=== PATIENT | male | born 1980 | race Caucasian/White ===

== ENCOUNTER 2017-04-02 10:26 | Emergency (ER) | payer SELFPAY ==
[~2017-04-02] VITALS: Ht 185.4 cm; Wt 112.9 kg
[~2017-04-02 10:26] MED LIST: ACHD5005 PO; AMPH20TA2 PO; BENZ100C18 PO; CEFU250T11 PO; CELE50CA PO; CEPH500C PO; CIPR500T4 PO; CLON1TAB3 PO; CONCERTA; CPR500T PO; CRS350T PO; CYCL10TA9 PO; DOXY100C2 PO; FAMO20TA5 PO; GFCD10B PO; HYDR-2941 PO; HYDR-3714; HYDR-3816 PO; HYDR-757 PO; HYDR1CAP2 PO; HYDR25TA4 PO; IBP800T; IBP800T PO; IBUP-1780 PO; IBUP-792; METR500T PO; MPR22T TP; NAPR-1071 PO; NAPR-243 PO; NAPR-684 PO; NAPR250T34 PO; NFPRILOC40 PO; ONDA8TAB13 PO; ONDAN4ODT PO; ORPH100T PO; OXYC-109 PO; OXYC-197 PO; OXYC20TA4 PO; PHEN-639 PO; PRD20T PO; PRED20TA PO; PROP1TAB77; SULF1TAB38 PO; TAMS0.4C98 PO; TRAM50TA2 PO; TRM50T; TRM50T PO; flexeril PO
--- OUTSIDE RECORDS SUMMARY | 2017-04-02 10:33 | XMS REPORT ---
Author Author URBAN DE SOUZA [facility] eClinicalWorks Address Unknown Phone Unavailable Care Team Providers Care Lacquer Shader Name Role Phone URBAN DE SOUZA CP Unavailable Allergies No Known Allergies Problems Problem Type Condition Code Onset Dates Condition Status Problem Generalized anxiety disorder 300.02 Active Problem Cannabis dependence, unspecified abuse 304.30 Active Problem Encounter for long-term (current) use of other medications V58.69 Active Problem Abdominal pain, other specified site 789.09 Active Problem Chest pain, unspecified 786.50 Active Problem Dysuria 788.1 Active Problem Routine general medical examination at health care facility V70.0 Active Problem 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 Problem Orchitis, epididymitis, and epididymo-orchitis, with abscess 604.0 Active Problem Urinary frequency 788.41 Active Problem Counseling on substance use and abuse V65.42 Active Problem Traumatic arthropathy, 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 Assessment Degenerative tear of glenoid labrum of left shoulder S43.432A Active Problem Pathologic fracture of distal radius and ulna 733.12 Active Problem Counseling on other sexually transmitted diseases V65.45 Active Problem Screening examination for venereal disease V74.5 Active Problem Attention deficit disorder of childhood without mention of hyperactivity 314.00 Active Problem Family history of diabetes mellitus V18.0 Active Problem Cellulitis and abscess of buttock 682.5 Active Problem Attention deficit disorder of childhood with hyperactivity 314.01 Active Medications No Known Medications Procedures Procedure Coding System Code Date Office Visit, Est Pt., Level 3 CPT-4 71237 Dec 28, 2014 Vital Signs Date/Time: Dec 28, 2014 Blood Pressure Diastolic 78 mmHg Blood Pressure Systolic 120 mmHg Height 73 in Results No Known Results Summary Purpose eClinicalWorks Submission
--- OUTSIDE RECORDS SUMMARY | 2017-04-02 10:33 | XMS REPORT ---
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 MUST LAST 30 DAYS Jan 03, 2015 1 tablet as needed Results No Known Results Summary Purpose eClinicalWorks Submission
--- OUTSIDE RECORDS SUMMARY | 2017-04-02 10:33 | XMS REPORT ---
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
--- OUTSIDE RECORDS SUMMARY | 2017-04-02 10:33 | XMS REPORT ---
Author Author LORENZO TSAI [facility] Address [address] [place] [address] Care Team Providers Care Track Car Operator Name Role Phone LORENZO STAI Unavailable PROBLEMS Type Condition ICD9-CM Code [id number] Code Onset Dates Condition Status SNOMED Code Problem Tobacco abuse counseling Z71.6 Active 746948019 Problem Hypothyroidism, unspecified type E03.9 Active 94947868 Problem Pain in left knee M25.562 Active 869575030 Problem ADHD, predominantly inattentive type F90.0 Active 87959593 Problem Anxiety F41.9 Active 89972435 Problem Tobacco abuse Z72.0 Active 49000470 Problem Other chronic pain G89.29 Active 18504073 Problem Situational anxiety F41.8 Active 708194780 Problem Essential hypertension I10 Active 13385930 Problem Plantar wart B07.0 Active 99820836 Problem Renal lithiasis N20.0 Active 30439010 Problem Renal calculi N20.0 Active 49531260 ALLERGIES Substance Reaction Event Type Date Status Penicillin G Sodium Unknown Drug Allergy May, Active SOCIAL HISTORY Never Assessed PLAN OF CARE VITAL SIGNS Height 73 in 2016-05-28 Weight 260.4 lbs 2016-05-28 Temperature 101.8 degrees Fahrenheit 2016-05-28 Heart Rate 100 bpm 2016-05-28 Respiratory Rate 20 2016-05-28 BMI 34.35 kg/m2 2016-05-28 Blood pressure systolic 136 mmHg 2016-05-28 Blood pressure diastolic 84 mmHg 2016-05-28 MEDICATIONS Medication Instructions Dosage Frequency Start Date End Date Duration Status Tessalon Perles 100 mg Orally Three times a day 1 capsule as needed 8h May, Active Bactrim DS 800-160 MG Orally Twice a day 1 tablet 12h May,May 10 day(s) Active RESULTS No Results PROCEDURES No Known procedures IMMUNIZATIONS No Known Immunizations MEDICAL (GENERAL) HISTORY Type Description Date Medical History Panic disorder Medical History left hip pain Surgical History Arthroscopy of left knee ACL repair x4 1999 Hospitalization History Surgery(s) only
--- OUTSIDE RECORDS SUMMARY | 2017-04-02 10:33 | XMS REPORT ---
Author LORENZO Maharaj [facility] eClinicalWorks Address Unknown Phone Unavailable Care Team Providers Care Computer Applications Instructor Name Role Phone LORENZO TSAI CP Unavailable Allergies, Adverse Reactions, Alerts Substance Reaction Event Type N.K.D.A. 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 Assessment Acute meniscal injury of left knee, subsequent encounter S89.82XD Active Problem Pathologic fracture of distal radius [...] Instructions Start Date End Date Status Dosage Logan [facility] [address]-28 7.5-325 MG Orally every 6 hrs Jan 03, 2015 1 tablet as needed Clonazepam [facility] [address]-22 0.5 mg Mar 30, 2014 1 Tablet 2 times per day PRN Ritalin [facility] [address]-93 10 mg Mar 30, 2014 take 1 tablet by Oral route 1 time per day Procedures Procedure Coding System Code Date Office Visit, Est Pt., Level 3 CPT-4 34183 Jan 03, 2015 Vital Signs Date/Time: Jan 03, 2015 Temperature 97.1 F Weight 265 lbs Height 73 in BMI 34.96 Index Blood Pressure Diastolic 86 mmHg Blood Pressure Systolic 122 mmHg Cardiac Monitoring Heart Rate 90 bpm Results No Known Results Summary Purpose eClinicalWorks Submission
--- OUTSIDE RECORDS SUMMARY | 2017-04-02 10:34 | XMS REPORT ---
Author Author LORENZO TSAI [facility] Address [address] [place] [address] Care Team Providers Care Automatic Bandsaw Tender Name Role Phone LORENZO TSAI Unavailable PROBLEMS Type Condition ICD9-CM Code NNF14-FV Code Onset Dates Condition Status SNOMED Code Problem Tobacco abuse counseling Z71.6 Active 982418079 Problem Hypothyroidism, unspecified type E03.9 Active 84416455 Problem Pain in left knee M25.562 Active 846352455 Problem ADHD, predominantly inattentive type F90.0 Active 94201494 Problem Anxiety F41.9 Active 66160424 Problem Tobacco abuse Z72.0 Active 51864440 Problem Other chronic pain G89.29 Active 00734775 Problem Situational anxiety F41.8 Active 093771658 Problem Essential hypertension I10 Active 46403636 Problem Plantar wart B07.0 Active 50585248 Problem Renal lithiasis N20.0 Active 29425102 Problem Renal calculi N20.0 Active 11808175 ALLERGIES No Information SOCIAL HISTORY Never Assessed PLAN OF CARE VITAL SIGNS MEDICATIONS Unknown Medications RESULTS No Results PROCEDURES No Known procedures IMMUNIZATIONS No Known Immunizations MEDICAL (GENERAL) HISTORY Type Description Date Medical History Panic disorder Medical History left hip pain Surgical History Arthroscopy of left knee ACL repair x4 2000 Hospitalization History Surgery(s) only
--- OUTSIDE RECORDS SUMMARY | 2017-04-02 10:34 | XMS REPORT ---
Author Author LORENZO TSAI Organization eClinicalWorks Address Unknown Phone Unavailable Care Team Providers Care Clinical Auditor Name Role Phone LORENZO TSAI CP Unavailable Allergies No Known Allergies Problems Problem Type Condition Code Onset Dates Condition Status Problem Tobacco abuse Z72.0 Active Problem Tobacco abuse counseling Z71.6 Active Problem Essential hypertension I10 Active Problem Plantar wart B07.0 Active Problem Renal calculi N20.0 Active Problem Anxiety F41.9 Active Problem ADHD, predominantly inattentive type F90.0 Active Problem Hypothyroidism, unspecified type E03.9 Active Problem Pain in left knee M25.562 Active Medications No Known Medications Results No Known Results Summary Purpose eClinicalWorks Submission
--- OUTSIDE RECORDS SUMMARY | 2017-04-02 10:34 | XMS REPORT ---
Author Author URBAN DE SOUZA Organization [facility] Address [address] [place] [address] Care Team Providers Care Car Repairman Name Role Phone URBAN DE SOUZA Unavailable PROBLEMS Type Condition ICD9-CM Code [id number] Code Onset Dates Condition Status SNOMED Code Problem Tobacco abuse counseling Z71.6 Active 357817045 Problem Hypothyroidism, unspecified type E03.9 Active 81600219 Problem Pain in left knee M25.562 Active 746916101 Problem ADHD, predominantly inattentive type F90.0 Active 50119764 Problem Anxiety F41.9 Active 12824895 Problem Tobacco abuse Z72.0 Active 32927117 Problem Other chronic pain G89.29 Active 96807782 Problem Situational anxiety F41.8 Active 153989238 Problem Essential hypertension I10 Active 72552961 Problem Plantar wart B07.0 Active 09740701 Problem Renal lithiasis N20.0 Active 74963778 Problem Renal calculi N20.0 Active 02110392 ALLERGIES No Information SOCIAL HISTORY Never Assessed PLAN OF CARE Activity Details Follow Up 6 Weeks Reason: VITAL SIGNS Height 73 in 2016-04-24 Blood pressure systolic 144 mmHg 2016-04-24 Blood pressure diastolic 84 mmHg 2016-04-24 MEDICATIONS Unknown Medications RESULTS No Results PROCEDURES Procedure Date Ordered Result Body Site DRAIN/INJECT, JOINT/BURSA Apr 24, 2016 DEPO MEDROL 80 MG/ML Apr 24, 2016 IMMUNIZATIONS No Known Immunizations MEDICAL (GENERAL) HISTORY Type Description Date Medical History Panic disorder Medical History left hip pain Surgical History Arthroscopy of left knee ACL repair x4 2000 Hospitalization History Surgery(s) only
--- OUTSIDE RECORDS SUMMARY | 2017-04-02 10:34 | XMS REPORT ---
Author LORENZO Maharaj Organization eClinicalWorks Address Unknown Phone Unavailable Care Team Providers Care Career Services Representative Name Role Phone LORENZO TSAI CP Unavailable Allergies No Known Allergies Problems Problem Type Condition Code Onset Dates Condition Status Problem Anxiety F41.9 Active Problem ADHD, predominantly inattentive type F90.0 Active Problem Pain in left knee M25.562 Active Problem Tobacco abuse Z72.0 Active Problem Tobacco abuse counseling Z71.6 Active Medications No Known Medications Results No Known Results Summary Purpose eClinicalWorks Submission
--- OUTSIDE RECORDS SUMMARY | 2017-04-02 10:34 | XMS REPORT ---
Author ROSCOE De La Rosa Organization eClinicalWorks Address Unknown Phone Unavailable Care Team Providers Care Hosiery Looper Name Role Phone ROSCOE OGLESBY CP Unavailable Allergies No Known Allergies Problems Problem Type Condition Code Onset Dates Condition Status Problem Anxiety F41.9 Active Problem ADHD, predominantly inattentive type F90.0 Active Problem Pain in left knee M25.562 Active Problem Tobacco abuse Z72.0 Active Problem Tobacco abuse counseling Z71.6 Active Medications No Known Medications Results No Known Results Summary Purpose eClinicalWorks Submission
--- OUTSIDE RECORDS SUMMARY | 2017-04-02 10:34 | XMS REPORT ---
Author Author LORENZO TSAI Organization [facility] Address [address] [place] [address] Care Team Providers Care Consulting Technical Manager Name Role Phone LORENZO TSAI Unavailable PROBLEMS Type Condition ICD9-CM Code [id number] Code Onset Dates Condition Status SNOMED Code Problem ADHD, predominantly inattentive type F90.0 Active 06220954 Problem Pain in left knee M25.562 Active 050601144 Problem Anxiety F41.9 Active 87280880 Assessment Essential hypertension I10 Feb, Active 47922491 Problem Tobacco abuse counseling Z71.6 Active 671003087 Problem Tobacco abuse Z72.0 Active 60379963 Problem Situational anxiety F41.8 Active 312181009 Problem Renal lithiasis N20.0 Active 63665689 Problem Plantar wart B07.0 Active 35845539 Problem Hypothyroidism, unspecified type E03.9 Active 96713159 Problem Renal calculi N20.0 Active 67828954 Problem Essential hypertension I10 Active 07208282 ALLERGIES Substance Reaction Event Type Date Status Penicillin G Sodium Unknown Drug Allergy Feb, Active SOCIAL HISTORY No smoking Hx information available PLAN OF CARE Activity Details Pending Test CMP ,Reason: VITAL SIGNS Height 73 in 2016-02-25 Weight 263.7 lbs 2016-02-25 Heart Rate 86 bpm 2016-02-25 Respiratory Rate 20 2016-02-25 BMI 34.79 kg/m2 2016-02-25 Blood pressure systolic 140 mmHg 2016-02-25 Blood pressure diastolic 86 mmHg 2016-02-25 MEDICATIONS Medication Instructions Dosage Frequency Start Date End Date Duration Status Duexis 800-26.6 MG Orally Three times a day 1 tablet 8h Dec, Active Hydrochlorothiazide 50 mg Orally Once a day 1 tablet 24h Sep, 30 day(s) Active [place] 10-325 MG Orally every 6 hrs 1 tablet as needed 6h Feb, Active Ketorolac Tromethamine 10 mg Orally every 8 hrs 1 tablet with food or milk as needed 8h Feb, Feb, 5 day(s) Active Pyridium 100 MG Orally Three times a day 2 tablets after meals 8h Active Flomax 0.4 MG Orally Once a day 1 capsule 24h Jan, Apr, 30 day(s) Active Ondansetron 8 MG Orally 3 times a day 1 tablet on the tongue and allow to dissolve 8h Feb, Active Cipro 500 MG Orally Twice a day 1 tablet 12h Feb, Feb, 10 day(s) Active RESULTS Name Result Date Reference Range UA LONG DIP (IN HOUSE) 2016-02-25 Lot # [id number] Exp date Clarity Clear Color Yellow Odor None GLU Negative CHRISTI Negative KET Negative SG 1.020 BLO Trace-Intact pH 6.0 Protein Negative URO 0.2 NIT Positive SAUL Negative Lot # [id number] Exp date CMP 2016-02-25 Glucose, Serum 105 65-99 BUN 17 6-20 Creatinine, Serum 1.09 0.76-1.27 eGFR If NonAfricn Am 87 >59 eGFR If Africn Am 101 >59 BUN/Creatinine Ratio 16 8-19 Sodium, Serum 142 134-144 Potassium, Serum 4.6 3.5-5.2 Chloride, Serum 100 96-106 Carbon Dioxide, Total 25 18-29 Calcium, Serum 10.0 8.7-10.2 Protein, Total, Serum 7.8 6.0-8.5 Albumin, Serum 5.1 3.5-5.5 Globulin, Total 2.7 1.5-4.5 A/G Ratio 1.9 1.1-2.5 Bilirubin, Total 0.5 0.0-1.2 Alkaline Phosphatase, S 59 39-117 AST (SGOT) 52 0-40 ALT (SGPT) 32 0-44 PROCEDURES Procedure Date Ordered Related Diagnosis Body Site Office Visit, Est Pt., Level 3 Feb 25, 2016 COMPREHEN METABOLIC PANEL Feb 25, 2016 URINALYSIS, AUTO, W/O SCOPE Feb 25, 2016 VENIPUNCT, ROUTINE* Feb 25, 2016 IMMUNIZATIONS No Known Immunizations
--- OUTSIDE RECORDS SUMMARY | 2017-04-02 10:34 | XMS REPORT ---
Author Author LORENZO TSAI Organization [facility] Address [address] [place] [address] Care Team Providers Care Route Sales Delivery Driver Name Role Phone LORENZO TSAI Unavailable PROBLEMS Type Condition ICD9-CM Code [id number] Code Onset Dates Condition Status SNOMED Code Problem Tobacco abuse counseling Z71.6 Active 489594727 Problem Hypothyroidism, unspecified type E03.9 Active 54967004 Problem Pain in left knee M25.562 Active 041971750 Problem ADHD, predominantly inattentive type F90.0 Active 01731425 Problem Anxiety F41.9 Active 73074829 Problem Tobacco abuse Z72.0 Active 63476554 Problem Other chronic pain G89.29 Active 07471128 Problem Situational anxiety F41.8 Active 497089716 Problem Essential hypertension I10 Active 58402472 Problem Plantar wart B07.0 Active 29164024 Problem Renal lithiasis N20.0 Active 86546539 Problem Renal calculi N20.0 Active 00178374 ALLERGIES Substance Reaction Event Type Date Status Penicillin G Sodium Unknown Drug Allergy Mar, Active SOCIAL HISTORY No smoking Hx information available PLAN OF CARE VITAL SIGNS Height 73 in 2016-04-14 Weight 278.2 lbs 2016-04-14 Temperature 98.0 degrees Fahrenheit 2016-04-14 Heart Rate 104 bpm 2016-04-14 Respiratory Rate 20 2016-04-14 BMI 36.70 kg/m2 2016-04-14 Blood pressure systolic 118 mmHg 2016-04-14 Blood pressure diastolic 80 mmHg 2016-04-14 MEDICATIONS Medication Instructions Dosage Frequency Start Date End Date Duration Status Duexis 800-26.6 MG Orally Three times a day 1 tablet 8h Dec, Active Flomax 0.4 MG Orally Once a day 1 capsule 24h Jan, 30 day(s) Active Hydrochlorothiazide 50 mg Orally Once a day 1 tablet 24h Sep, 30 day(s) Active RESULTS Name Result Date Reference Range Xray : Knee, Left 3 views (IN HOUSE) 2016-04-14 PROCEDURES Procedure Date Ordered Related Diagnosis Body Site X-RAY EXAM OF KNEE, 3 Apr 14, 2016 Office Visit, Est Pt., Level 3 Apr 14, 2016 IMMUNIZATIONS No Known Immunizations
--- OUTSIDE RECORDS SUMMARY | 2017-04-02 10:34 | XMS REPORT ---
Author LORENZO Maharaj [facility] eClinicalWorks Address Unknown Phone Unavailable Care Team Providers Care Senior Web Applications Developer Name Role Phone LORENZO TSAI CP Unavailable Allergies, Adverse Reactions, Alerts Substance Reaction Event Type Penicillin G Sodium Info Not Available Drug Allergy Problems Problem Type Condition Code Onset Dates Condition Status Assessment Hypothyroidism, unspecified type E03.9 Active Problem Tobacco abuse counseling Z71.6 Active Assessment Plantar wart B07.0 Active Assessment Family history of diabetes mellitus Z83.3 Active Problem Plantar wart B07.0 Active Problem Hypothyroidism, unspecified type E03.9 Active Problem Essential hypertension I10 Active Problem ADHD, predominantly inattentive type F90.0 Active Problem Tobacco abuse Z72.0 Active Problem Pain in left knee M25.562 Active Problem Anxiety F41.9 Active Medications Medication Code System Code Instructions Start Date End Date Status Dosage Hydrochlorothiazide [facility] [address]-69 50 mg Orally Once a day September 27, 2015 1 tablet Duexis [facility] [address]-06 800-26.6 MG Orally Three times a day Dec 28, 2015 1 tablet Tramadol HCl [facility] [address]-92 50 MG Orally every 6 hrs 1 tablet as needed Procedures Procedure Coding System Code Date Office Visit, Est Pt., Level 2 CPT-4 61696 Jan 14, 2016 ASSAY THYROID STIM HORMONE CPT-4 47224 Jan 14, 2016 DESTRUCT LESION, 1-14 CPT-4 26515 Jan 14, 2016 VENIPUNCT, ROUTINE* CPT-4 20015 Jan 14, 2016 GLYCATED HEMOGLOBIN TEST CPT-4 33912 Jan 14, 2016 Vital Signs Date/Time: Jan 14, 2016 Cardiac Monitoring Heart Rate 104 bpm Weight 261.3 lbs Height 73 in BMI 34.47 Index Blood Pressure Diastolic 80 mmHg Blood Pressure Systolic 130 mmHg Results Name Result Date Reference Range Unit Abnormality Flag WART DESTRUCT 1-14 (CRYO) TSH ----TSH 0.745 20160114 0.450-4.500 uIU/mL A1C (IN HOUSE) ----A1C IN HOUSE 5.1 20160114 4.3 - 5.6 % ----Previous A1c 5.2 20160114 ----Lot [id number] ----Exp date 20160114 ROUTINE VENIPUNCTURE Summary Purpose eClinicalWorks Submission
--- OUTSIDE RECORDS SUMMARY | 2017-04-02 10:34 | XMS REPORT ---
Author Author LORENZO TSAI [facility] Address [address] [place] [address] Care Team Providers Care Machine Printer Hose Name Role Phone LORENZO TSAI Unavailable PROBLEMS Type Condition ICD9-CM Code LON43-LO Code Onset Dates Condition Status SNOMED Code Problem Tobacco abuse counseling Z71.6 Active 444287428 Problem Hypothyroidism, unspecified type E03.9 Active 47995898 Problem Pain in left knee M25.562 Active 664017891 Problem ADHD, predominantly inattentive type F90.0 Active 38398026 Problem Anxiety F41.9 Active 31041858 Problem Tobacco abuse Z72.0 Active 92821311 Problem Other chronic pain G89.29 Active 54558281 Problem Situational anxiety F41.8 Active 413401962 Problem Essential hypertension I10 Active 36868039 Problem Plantar wart B07.0 Active 95834807 Problem Renal lithiasis N20.0 Active 62069124 Problem Renal calculi N20.0 Active 87080358 ALLERGIES No Information SOCIAL HISTORY Never Assessed PLAN OF CARE VITAL SIGNS MEDICATIONS Unknown Medications RESULTS No Results PROCEDURES No Known procedures IMMUNIZATIONS No Known Immunizations MEDICAL (GENERAL) HISTORY Type Description Date Medical History Panic disorder Medical History left hip pain Surgical History Arthroscopy of left knee ACL repair x4 2000 Hospitalization History Surgery(s) only
--- OUTSIDE RECORDS SUMMARY | 2017-04-02 10:34 | XMS REPORT ---
Author LORENZO Maharaj Organization eClinicalWorks Address Unknown Phone Unavailable Care Team Providers Care Returned Goods Repairer Name Role Phone LORENZO TSAI CP Unavailable [...] hyperactivity 314.01 Active Medications No Known Medications Results No Known Results Summary Purpose eClinicalWorks Submission
--- OUTSIDE RECORDS SUMMARY | 2017-04-02 10:34 | XMS REPORT ---
Author LORENZO Maharaj Organization eClinicalWorks Address Unknown Phone Unavailable Care Team Providers Care Manufacturing Technology Analyst Name Role Phone LORENZO TSAI CP Unavailable [...]
--- OUTSIDE RECORDS SUMMARY | 2017-04-02 10:34 | XMS REPORT ---
Author LORENZO Maharaj Organization eClinicalWorks Address Unknown Phone Unavailable Care Team Providers Care Unit Trust Manager Name Role Phone LORENZO TSAI CP Unavailable [...] Instructions Start Date End Date Status Dosage [facility] [address]-84 7.5-325 MG Orally every 6 hrs. MUST LAST 30 DAYS. MAY FILL 04/04/15 Jan 03, 2015 1 tablet as needed Results No Known Results Summary Purpose eClinicalWorks Submission
--- OUTSIDE RECORDS SUMMARY | 2017-04-02 10:34 | XMS REPORT ---
Author Author LORENZO TSAI Organization eClinical[employer] Address Unknown Phone Unavailable Care Team Providers Care Director Of Customer Acquisition Name Role Phone LORENZO TSAI CP Unavailable Allergies No Known Allergies Problems Problem Type Condition Code Onset Dates Condition Status Assessment Renal calculi N20.0 Active Problem Tobacco abuse Z72.0 Active Problem Tobacco abuse counseling Z71.6 Active Problem Essential hypertension I10 Active Problem Plantar wart B07.0 Active Problem Renal calculi N20.0 Active Problem Anxiety F41.9 Active Problem ADHD, predominantly inattentive type F90.0 Active Problem Hypothyroidism, unspecified type E03.9 Active Problem Pain in left knee M25.562 Active Medications Medication Code System Code Instructions Start Date End Date Status Dosage Miller [facility] [address]-13 7.5-325 MG Orally every 6 hrs Feb 11, 2016 1 tablet as needed Hydrochlorothiazide [facility] [address]-17 50 mg Orally Once a day September 27, 2015 1 tablet Duexis [facility] [address]-92 800-26.6 MG Orally Three times a day Dec 28, 2015 1 tablet Tramadol HCl [facility] [address]-58 50 MG Orally every 6 hrs 1 tablet as needed Flomax [facility] [address]-66 0.4 MG Orally Once a day Feb 11, 2016 May 11, 2016 1 capsule Procedures Procedure Coding System Code Date Office Visit, Est Pt., Level 3 CPT-4 41436 Feb 11, 2016 Vital Signs Date/Time: Feb 11, 2016 Cardiac Monitoring Heart Rate 88 bpm Weight 255 lbs Height 73 in BMI 33.64 Index Blood Pressure Diastolic 84 mmHg Blood Pressure Systolic 144 mmHg Results No Known Results Summary Purpose eClinicalWorks Submission
--- OUTSIDE RECORDS SUMMARY | 2017-04-02 10:35 | XMS REPORT ---
Author LORENZO Maharaj [facility] eClinicalWorks Address Unknown Phone Unavailable Care Team Providers Care Cloth Tester Name Role Phone LORENZO TSAI CP Unavailable Allergies, Adverse Reactions, Alerts Substance Reaction Event Type N.K.D.A. Info Not Available Non Drug Allergy Problems Problem Type Condition ICD-9 Code Onset Dates Condition Status Problem Generalized anxiety disorder 300.02 Active Problem Cannabis dependence, unspecified abuse 304.30 Active Problem Encounter for long-term (current) use of other medications V58.69 Active Problem Abdominal pain, other specified site 789.09 Active Assessment ADHD (attention deficit hyperactivity disorder) 314.01 Active Problem Chest pain, unspecified 786.50 Active Assessment Anxiety 300.00 Active Problem Dysuria 788.1 Active Problem Routine [...] Date End Date Status Dosage Tramadol HCl [facility] [address]-01 50 MG Orally every 6 hrs Nov 29, 2014 1 tablet as needed Ritalin [facility] [address]-72 10 mg Mar 30, 2014 take 1 tablet by Oral route 1 time per day Clonazepam [facility] [address]-61 0.5 mg Mar 30, 2014 1 Tablet 2 times per day PRN Procedures Procedure Coding System Code Date Office Visit, Est Pt., Level 3 CPT-4 19742 Nov 29, 2014 Vital Signs Date/Time: Nov 29, 2014 Temperature 98.3 F Weight 270 lbs Height 73 in BMI 35.62 Index Blood Pressure Diastolic 74 mmHg Blood Pressure Systolic 110 mmHg Cardiac Monitoring Heart Rate 110 bpm Results No Known Results Summary Purpose eClinicalWorks Submission
--- OUTSIDE RECORDS SUMMARY | 2017-04-02 10:35 | XMS REPORT ---
Author Author LORENZO TSAI [facility] Address [address] [place] [address] Care Team Providers Care Balance Wheel Screw Hole Tapper Name Role Phone LORENZO TSAI Unavailable PROBLEMS Type Condition ICD9-CM Code [id number] Code Onset Dates Condition Status SNOMED Code Problem Tobacco abuse counseling Z71.6 Active 106333743 Problem Hypothyroidism, unspecified type E03.9 Active 29985354 Problem Pain in left knee M25.562 Active 435911768 Problem ADHD, predominantly inattentive type F90.0 Active 59403473 Problem Anxiety F41.9 Active 45351969 Problem Tobacco abuse Z72.0 Active 16269949 Problem Other chronic pain G89.29 Active 98894614 Problem Situational anxiety F41.8 Active 717338470 Problem Essential hypertension I10 Active 63153577 Problem Plantar wart B07.0 Active 63652983 Problem Renal lithiasis N20.0 Active 63903420 Problem Renal calculi N20.0 Active 85167842 ALLERGIES Unknown Allergies SOCIAL HISTORY No smoking Hx information available PLAN OF CARE VITAL SIGNS MEDICATIONS Unknown Medications RESULTS No Results PROCEDURES No Known procedures IMMUNIZATIONS No Known Immunizations
--- OUTSIDE RECORDS SUMMARY | 2017-04-02 10:35 | XMS REPORT ---
Author LORENZO Maharaj Organization [employer] Address Unknown Phone Unavailable Care Team Providers Care Certified Shorthand Reporter Name Role Phone LORENZO TSAI CP Unavailable [...]
--- OUTSIDE RECORDS SUMMARY | 2017-04-02 10:35 | XMS REPORT ---
Author Author LORENZO TSAI Organization [employer] Address Unknown Phone Unavailable Care Team Providers Care Financial Sales Professional Name Role Phone LORENZO TSAI CP Unavailable Allergies No Known Allergies Problems Problem Type Condition Code Onset Dates Condition Status Problem Pain in left knee M25.562 Active Problem Anxiety F41.9 Active Problem Essential hypertension I10 Active Problem Tobacco abuse counseling Z71.6 Active Problem ADHD, predominantly inattentive type F90.0 Active Problem Tobacco abuse Z72.0 Active Medications No Known Medications Results No Known Results Summary Purpose eClinicalWorks Submission
--- OUTSIDE RECORDS SUMMARY | 2017-04-02 10:35 | XMS REPORT ---
Author Author SONDRA FORRESTER [facility] Address [address] [place] [address] Care Team Providers Care Dining Room Supervisor Name Role Phone SONDRA FORRESTER Unavailable PROBLEMS Type Condition ICD9-CM Code IGI37-OK Code Onset Dates Condition Status SNOMED Code Problem ADHD, predominantly inattentive type F90.0 Active 58229308 Problem Pain in left knee M25.562 Active 876341888 Problem Anxiety F41.9 Active 12717789 Assessment Situational anxiety F41.8 Feb, Active 128615820 Problem Tobacco abuse counseling Z71.6 Active 090543592 Problem Tobacco abuse Z72.0 Active 90759339 Problem Situational anxiety F41.8 Active 433769571 Problem Renal lithiasis N20.0 Active 71705159 Problem Plantar wart B07.0 Active 29652012 Problem Hypothyroidism, unspecified type E03.9 Active 96282680 Problem Renal calculi N20.0 Active 52859984 Problem Essential hypertension I10 Active 03392837 ALLERGIES Substance Reaction Event Type Date Status Penicillin G Sodium Unknown Drug Allergy Feb, Active SOCIAL HISTORY No smoking Hx information available PLAN OF CARE VITAL SIGNS MEDICATIONS Unknown Medications RESULTS No Results PROCEDURES Procedure Date Ordered Related Diagnosis Body Site Psych diagnostic evaluation, established patient Feb 25, 2016 IMMUNIZATIONS No Known Immunizations
--- OUTSIDE RECORDS SUMMARY | 2017-04-02 10:35 | XMS REPORT ---
Author LORENZO Maharaj Organization [employer] Address Unknown Phone Unavailable Care Team Providers Care Automobile Service Station Attendant Name Role Phone LORENZO TSAI CP Unavailable [...] Instructions Start Date End Date Status Dosage [facility] [address]-46 7.5-325 MG Orally every 6 hrs. MUST LAST 30 DAYS Jan 03, 2015 1 tablet as needed Results No Known Results Summary Purpose eClinicalWorks Submission
--- OUTSIDE RECORDS SUMMARY | 2017-04-02 10:35 | XMS REPORT ---
Author Author ZENIA GARZA Organization [employer] Address Unknown Phone Unavailable Care Team Providers Care Marketing Graphics Specialist Name Role Phone ZENIA GARZA CP Unavailable Allergies No Known Allergies Problems [...]
--- OUTSIDE RECORDS SUMMARY | 2017-04-02 10:35 | XMS REPORT ---
Author Author LORENZO TSAI Organization [employer] Address Unknown Phone Unavailable Care Team Providers Care Sheeting Puller Name Role Phone LORENZO TSAI CP Unavailable Allergies, Adverse Reactions, Alerts Substance Reaction Event Type N.K.D.A. Info Not Available Non Drug Allergy Problems Problem Type Condition Code Onset Dates Condition Status Assessment Pain in left knee M25.562 Active Assessment Polyuria R35.8 Active Assessment Polydipsia R63.1 Active Problem Anxiety F41.9 Active Problem ADHD, predominantly inattentive type F90.0 Active Problem Pain in left knee M25.562 Active Assessment Hypertension, benign I10 Active Assessment Family history of diabetes mellitus Z83.3 Active Problem Tobacco abuse Z72.0 Active Problem Tobacco abuse counseling Z71.6 Active Medications Medication Code System Code Instructions Start Date End Date Status Dosage Hydrochlorothiazide [facility] [address]-80 50 mg Orally Once a day September 27, 2015 1 tablet Tramadol HCl [facility] [address]-31 50 mg Orally every 6 hrs September 27, 2015 1 tablet as needed Procedures Procedure Coding System Code Date Office Visit, Est Pt., Level 3 CPT-4 79683 September 27, 2015 Vital Signs Date/Time: September 27, 2015 Cardiac Monitoring Heart Rate 76 bpm Weight 260.0 lbs Height 73 in Blood Pressure Diastolic 106 mmHg Blood Pressure Systolic 144 mmHg Results No Known Results Summary Purpose eClinicalWorks Submission
--- OUTSIDE RECORDS SUMMARY | 2017-04-02 10:35 | XMS REPORT ---
Author Author LORENZO TSAI [facility] Address [address] [place] [address] Care Team Providers Care Area Mechanic Name Role Phone LORENZO TSAI Unavailable PROBLEMS Type Condition ICD9-CM Code SPI34-MV Code Onset Dates Condition Status SNOMED Code Problem Anxiety F41.9 Active 01405864 Problem Hypothyroidism, unspecified type E03.9 Active 96326613 Problem Pain in left knee M25.562 Active 734599679 Problem Tobacco abuse counseling Z71.6 Active 879201033 Problem Tobacco abuse Z72.0 Active 69138114 Problem ADHD, predominantly inattentive type F90.0 Active 17063374 Problem Other chronic pain G89.29 Active 43368297 Problem Situational anxiety F41.8 Active 005846826 Problem Essential hypertension I10 Active 32867584 Problem Plantar wart B07.0 Active 31325574 Problem Renal lithiasis N20.0 Active 00995335 Problem Renal calculi N20.0 Active 57954704 ALLERGIES Unknown Allergies SOCIAL HISTORY No smoking Hx information available PLAN OF CARE VITAL SIGNS MEDICATIONS Unknown Medications RESULTS No Results PROCEDURES No Known procedures IMMUNIZATIONS No Known Immunizations
--- OUTSIDE RECORDS SUMMARY | 2017-04-02 10:35 | XMS REPORT ---
Author Author LORENZO TSAI [facility] Address [address] [place] [address] Care Team Providers Care Shagger Name Role Phone LORENZO TSAI Unavailable PROBLEMS Type Condition ICD9-CM Code [id number] Code Onset Dates Condition Status SNOMED Code Problem ADHD, predominantly inattentive type F90.0 Active 72721005 Problem Pain in left knee M25.562 Active 485058650 Problem Anxiety F41.9 Active 80944234 Problem Tobacco abuse counseling Z71.6 Active 026517081 Problem Tobacco abuse Z72.0 Active 75360538 Problem Situational anxiety F41.8 Active 683398129 Problem Renal lithiasis N20.0 Active 31770036 Problem Plantar wart B07.0 Active 53343835 Problem Hypothyroidism, unspecified type E03.9 Active 46862199 Problem Renal calculi N20.0 Active 86868869 Problem Essential hypertension I10 Active 61752925 ALLERGIES Unknown Allergies SOCIAL HISTORY No smoking Hx information available PLAN OF CARE VITAL SIGNS MEDICATIONS Unknown Medications RESULTS No Results PROCEDURES No Known procedures IMMUNIZATIONS No Known Immunizations
--- OUTSIDE RECORDS SUMMARY | 2017-04-02 10:35 | XMS REPORT ---
Author Author MONO TIAN [facility] Address Unknown Care Team Providers Care Headrig Sawyer Name Role Phone JAYLAN MONO Unavailable PROBLEMS Type Condition ICD9-CM Code JRB48-PG Code Onset Dates Condition Status SNOMED Code Problem Tobacco abuse counseling Z71.6 Active 082344902 Problem Hypothyroidism, unspecified type E03.9 Active 35556537 Problem Pain in left knee M25.562 Active 710360978 Problem ADHD, predominantly inattentive type F90.0 Active 80753676 Problem Anxiety F41.9 Active 34753751 Problem Tobacco abuse Z72.0 Active 91630154 Problem Other chronic pain G89.29 Active 11902423 Problem Situational anxiety F41.8 Active 558233508 Problem Essential hypertension I10 Active 35226486 Problem Plantar wart B07.0 Active 66348563 Problem Renal lithiasis N20.0 Active 16750710 Problem Renal calculi N20.0 Active 10989457 ALLERGIES Substance Reaction Event Type Date Status Penicillin G Sodium Unknown Drug Allergy July, Active SOCIAL HISTORY Never Assessed PLAN OF CARE Activity Details Follow Up prn Reason:hygiene VITAL SIGNS Blood pressure systolic 147 mmHg 2016-07-21 Blood pressure diastolic 83 mmHg 2016-07-21 MEDICATIONS Medication Instructions Dosage Frequency Start Date End Date Duration Status Hydrochlorothiazide 50 mg Orally Once a day 1 tablet 24h Sep, 30 day(s) Active RESULTS No Results PROCEDURES Procedure Date Ordered Result Body Site EXTRAC ERUPTED TOOTH/EXPOSED ROOT July 21, 2016 IMMUNIZATIONS No Known Immunizations MEDICAL (GENERAL) HISTORY Type Description Date Medical History Panic disorder Medical History left hip pain Surgical History Arthroscopy of left knee ACL repair x4 1999 Hospitalization History Surgery(s) only
--- OUTSIDE RECORDS SUMMARY | 2017-04-02 10:35 | XMS REPORT ---
Author LORENZO Maharaj Organization e[employer]Works Address Unknown Phone Unavailable Care Team Providers Care Logistics Specialist Name Role Phone LORENZO TSAI CP Unavailable [...]
--- OUTSIDE RECORDS SUMMARY | 2017-04-02 10:35 | XMS REPORT ---
Author ZENIA [facility] eClinicalWorks Address Unknown Phone Unavailable Care Team Providers Care Composing Machine Operator Name Role Phone ZENIA GARZA CP Unavailable Allergies, Adverse Reactions, Alerts Substance Reaction Event Type N.K.D.A. Info Not Available Non Drug Allergy Problems Problem Type Condition Code Onset Dates Condition Status Assessment Family history of diabetes mellitus Z83.3 Active Assessment Essential hypertension I10 Active Assessment Hair loss L65.9 Active Problem Pain in left knee M25.562 Active Problem Anxiety F41.9 Active Problem Essential hypertension I10 Active Problem Tobacco abuse counseling Z71.6 Active Assessment Pain in left knee M25.562 Active Problem ADHD, predominantly inattentive type F90.0 Active Problem Tobacco abuse Z72.0 Active Medications Medication Code System Code Instructions Start Date End Date Status Dosage Duexis [facility] [address]-51 800-26.6 MG Orally Three times a day Dec 28, 2015 1 tablet Hydrochlorothiazide [facility] [address]-57 50 mg Orally Once a day September 27, 2015 1 tablet Procedures Procedure Coding System Code Date COMPLETE CBC W/AUTO DIFF WBC CPT-4 25606 Dec 28, 2015 LIPID PANEL CPT-4 63582 Dec 28, 2015 ASSAY THYROID STIM HORMONE CPT-4 23000 Dec 28, 2015 VENIPUNCT, ROUTINE* CPT-4 23744 Dec 28, 2015 Office Visit, Est Pt., Level 4 CPT-4 23482 Dec 28, 2015 COMPREHEN METABOLIC PANEL CPT-4 27845 Dec 28, 2015 GLYCATED HEMOGLOBIN TEST CPT-4 96529 Dec 28, 2015 Vital Signs Date/Time: Dec 28, 2015 Cardiac Monitoring Heart Rate 84 bpm Weight 259 lbs Height 73 in BMI 34.17 Index Blood Pressure Diastolic 82 mmHg Blood Pressure Systolic 132 mmHg Results Name Result Date Reference Range Unit Abnormality Flag CMP ----Calcium, Serum 10.0 20151228 8.7-10.2 mg/dL ----Carbon Dioxide, Total 23 20151228 18-29 mmol/L ----ALT (SGPT) 16 04504580 0-44 IU/L ----Creatinine, Serum 0.92 18934013 0.76-1.27 mg/dL ----AST (SGOT) 41 10042155 0-40 IU/L H ----eGFR If NonAfricn Am 107 22893862 >59 mL/min/1.73 ----Alkaline Phosphatase, S 52 20033409 39-117 IU/L ----eGFR If Africn Am 124 64844126 >59 mL/min/1.73 ----Bilirubin, Total 0.7 03206360 0.0-1.2 mg/dL ----BUN/Creatinine Ratio 12 20151228 8-19 ----A/G Ratio 1.8 87933515 1.1-2.5 ----Sodium, Serum 142 02305892 134-144 mmol/L ----Globulin, Total 2.7 38717471 1.5-4.5 g/dL ----Potassium, Serum 4.1 51641258 3.5-5.2 mmol/L ----Glucose, Serum 89 13166929 65-99 mg/dL ----Chloride, Serum 104 05314173 97-108 mmol/L ----Albumin, Serum 4.8 87297416 3.5-5.5 g/dL ----BUN 11 29133749 6-20 mg/dL ----Protein, Total, Serum 7.5 38128004 6.0-8.5 g/dL A1C (IN HOUSE) ----A1C IN HOUSE 5.2 81489124 4.3 - 5.6 % ----Exp date [id number] ----Lot 0630 [id number] ROUTINE VENIPUNCTURE CBC ----MCHC 33.5 30904723 31.5-35.7 g/dL ----MCH 29.9 [id number] 26.6-33.0 pg ----Platelets 346 52920459 150-379 x10E3/uL ----RDW 13.3 44942604 12.3-15.4 % ----Immature Granulocytes 0 67830033 % ----Immature Grans (Abs) 0.0 93148617 0.0-0.1 x10E3/uL ----Lymphs 35 21330744 % ----Monocytes 6 04354438 % ----Neutrophils 57 65197595 % ----Neutrophils (Absolute) 6.1 40356003 1.4-7.0 x10E3/uL ----Hematocrit 42.7 80243965 37.5-51.0 % ----Lymphs (Absolute) 3.8 06486350 0.7-3.1 x10E3/uL H ----MCV 89 89854138 79-97 fL ----RBC 4.78 05162066 4.14-5.80 x10E6/uL ----Eos 2 70542028 % ----Basos 0 73243764 % ----Hemoglobin 14.3 16252833 12.6-17.7 g/dL ----Baso (Absolute) 0.0 80517783 0.0-0.2 x10E3/uL ----WBC 10.8 74883642 3.4-10.8 x10E3/uL ----Monocytes(Absolute) 0.7 07461558 0.1-0.9 x10E3/uL ----Eos (Absolute) 0.2 15819112 0.0-0.4 x10E3/uL LIPID PANEL ----LDL Cholesterol Calc 153 14806305 0-99 mg/dL H ----VLDL Cholesterol Harjeet 19 57817910 5-40 mg/dL ----HDL Cholesterol 39 79530515 >39 mg/dL L ----Triglycerides 97 04483686 0-149 mg/dL ----Cholesterol, Total 211 72330166 100-199 mg/dL H Summary Purpose eClinicalWorks Submission
--- OUTSIDE RECORDS SUMMARY | 2017-04-02 10:35 | XMS REPORT ---
Author Author MONO TIAN [facility] Address Unknown Care Team Providers Care Tool Radial Drill Press Set Up Operator Name Role Phone MONO TIAN Unavailable PROBLEMS Type Condition ICD9-CM Code [id number] Code Onset Dates Condition Status SNOMED Code Problem Tobacco abuse counseling Z71.6 Active 667957411 Problem Hypothyroidism, unspecified type E03.9 Active 61485008 Problem Pain in left knee M25.562 Active 888899802 Problem ADHD, predominantly inattentive type F90.0 Active 15332868 Problem Anxiety F41.9 Active 90796728 Problem Tobacco abuse Z72.0 Active 96528499 Problem Other chronic pain G89.29 Active 93561956 Problem Situational anxiety F41.8 Active 360393641 Problem Essential hypertension I10 Active 87686564 Problem Plantar wart B07.0 Active 84863564 Problem Renal lithiasis N20.0 Active 02177377 Problem Renal calculi N20.0 Active 33968553 ALLERGIES Substance Reaction Event Type Date Status Penicillin G Sodium Unknown Drug Allergy July, Active SOCIAL HISTORY Never Assessed PLAN OF CARE Activity Details Follow Up ANALI Reason:TE 1hr per DDS VITAL SIGNS Height 73 in 2016-07-15 Blood pressure systolic 139 mmHg 2016-07-15 Blood pressure diastolic 93 mmHg 2016-07-15 MEDICATIONS Medication Instructions Dosage Frequency Start Date End Date Duration Status Clindamycin HCl 150 MG Orally every 6 hrs 2 capsules 6h 7 days Active Hydrochlorothiazide 50 mg Orally Once a day 1 tablet 24h Sep, 30 day(s) Active RESULTS No Results PROCEDURES Procedure Date Ordered Result Body Site LTD ORAL EVALUATION - PROBLEM FOCUS July 15, 2016 INTRAORL-PERIAPICAL 1 FILM [id number] July 15, 2016 IMMUNIZATIONS No Known Immunizations MEDICAL (GENERAL) HISTORY Type Description Date Medical History Panic disorder Medical History left hip pain Surgical History Arthroscopy of left knee ACL repair x4 1999 Hospitalization History Surgery(s) only
--- OUTSIDE RECORDS SUMMARY | 2017-04-02 10:37 | XMS REPORT | Continuity of Care Document ---
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 SANDRA IVERSON V65.45 STD COUNSELING 10/01/2011 MCMAHON UNDERCAR SPECIALIST, SANDRA IVERSON V74.5 STD SCREEN 10/01/2011 MCMAHON LAWRENCE SANDRA IVERSON V65.45 STD COUNSELING 10/01/2011 SALOME BRAVO SANDRA IVERSON V74.5 STD SCREEN 10/01/2011 MCMAHONDARLNEE BRAVO SANDRA IVERSON V65.45 STD COUNSELING 10/01/2011 SALOME BRAVO SANDRA IVERSON V74.5 STD SCREEN 10/01/2011 SALOME BRAVO SANDRA IVERSON V65.45 STD COUNSELING 10/01/2011 SALOME BRAVO SANDRA IVERSON V74.5 STD SCREEN 10/01/2011 WHITE DDS, LENARD J V65.45 STD COUNSELING 10/01/2011 WHITE DDS, LENARD J V74.5 STD SCREEN 10/01/2011 BRAUN DDS, FREDY V65.45 STD COUNSELING 10/01/2011 BRAUN DDS, FREDY V74.5 STD SCREEN 10/01/2011 ZENIA GARZA MD V65.45 STD COUNSELING 10/01/2011 KAYLA MCCLELLAN, ZENIA V74.5 STD SCREEN 10/01/2011 SEA BRAVO, PRINCE R V65.45 STD COUNSELING 10/01/2011 SEA BRAVO, PRINCE R V74.5 STD SCREEN 10/01/2011 TASHA KEATING APRN L V65.45 STD COUNSELING 10/01/2011 RISHABH BRAVO TASHA L V74.5 STD SCREEN 11/14/2011 Ot 780.8 GENERALIZED HYPERHIDROSIS 11/14/2011 Ot 786.05 SHORTNESS OF BREATH 11/18/2011 SALOME BRAVO SANDRA KISHOR 604.0 ORCHITIS EPIDIDYMITIS AND EPIDIDYMO-ORCHITIS WITH ABSCESS 11/18/2011 SALOME BRAVO SANDRA KISHOR 604.0 ORCHITIS EPIDIDYMITIS AND EPIDIDYMO-ORCHITIS WITH ABSCESS 11/18/2011 SALOME BRAVO SANDRA KISHOR 604.0 ORCHITIS EPIDIDYMITIS AND EPIDIDYMO-ORCHITIS WITH ABSCESS 11/18/2011 604.0 ORCHITIS EPIDIDYMITIS AND EPIDIDYMO-ORCHITIS WITH ABSCESS 11/18/2011 604.0 ORCHITIS EPIDIDYMITIS AND EPIDIDYMO-ORCHITIS WITH ABSCESS 11/18/2011 604.0 ORCHITIS EPIDIDYMITIS AND EPIDIDYMO-ORCHITIS WITH ABSCESS 11/18/2011 604.0 ORCHITIS EPIDIDYMITIS AND EPIDIDYMO-ORCHITIS WITH ABSCESS 11/18/2011 SALOME BRAVO SANDRA KISHOR 604.0 ORCHITIS EPIDIDYMITIS AND EPIDIDYMO-ORCHITIS WITH ABSCESS 11/18/2011 SANDRA MCMAHON APRN 604.0 ORCHITIS EPIDIDYMITIS AND EPIDIDYMO-ORCHITIS WITH ABSCESS 11/18/2011 MCMAHONDARLENE BRAVO, SANDRA IVERSON 604.0 ORCHITIS EPIDIDYMITIS AND EPIDIDYMO-ORCHITIS WITH ABSCESS 11/18/2011 MCMAHONDARLENE BRAVO, SANDRA IVERSON 604.0 ORCHITIS EPIDIDYMITIS AND EPIDIDYMO-ORCHITIS WITH ABSCESS 11/18/2011 SALOME BRAVO SANDRA IVERSON 604.0 ORCHITIS EPIDIDYMITIS AND EPIDIDYMO-ORCHITIS WITH ABSCESS 11/18/2011 LUIS DDS, LENARD Gipson 604.0 ORCHITIS EPIDIDYMITIS AND EPIDIDYMO-ORCHITIS WITH ABSCESS 11/18/2011 KADE LANGS, FREDY 604.0 ORCHITIS EPIDIDYMITIS AND EPIDIDYMO-ORCHITIS WITH ABSCESS 11/18/2011 KAYLA MCCLELLAN, ZENIA 604.0 ORCHITIS EPIDIDYMITIS AND EPIDIDYMO-ORCHITIS WITH ABSCESS 11/18/2011 SEA UNDERCAR SPECIALIST, PRINCE R 604.0 ORCHITIS EPIDIDYMITIS AND EPIDIDYMO-ORCHITIS WITH ABSCESS 11/18/2011 RISHABH BRAVO, TASHA L 604.0 ORCHITIS EPIDIDYMITIS AND EPIDIDYMO-ORCHITIS WITH ABSCESS 01/01/2012 Ot 788.1 DYSURIA 01/01/2012 Ot 601.0 ACUTE PROSTATITIS 01/01/2012 Ot 604.90 ORCHITIS/ EPIDIDYMIT NOS 01/01/2012 Ot 789.09 ABDOMINAL PAIN, OTHER SPECIFIED SITE 01/15/2012 SALOME BRAVO SANDRA KISHOR 788.1 pain during urination (dysuria) 01/15/2012 SALOME BRAVO SANDRA KISHOR 789.09 ABDOMINAL PAIN OTHER SPECIFIED SITE 01/15/2012 SALOME BRAVO SANDRA KISHOR 788.1 pain during urination (dysuria) 01/15/2012 SALOME BRAVO SANDRA KISHOR 789.09 ABDOMINAL PAIN OTHER SPECIFIED SITE 01/15/2012 SALOME BRAVO SANDRA KISHOR 788.1 pain during urination (dysuria) 01/15/2012 SALOME BRAVO SANDRA KISHOR 789.09 ABDOMINAL PAIN OTHER SPECIFIED SITE 01/15/2012 788.1 pain during urination (dysuria) 01/15/2012 789.09 ABDOMINAL PAIN OTHER SPECIFIED SITE 01/15/2012 788.1 pain during urination (dysuria) 01/15/2012 789.09 ABDOMINAL PAIN OTHER SPECIFIED SITE 01/15/2012 788.1 pain during urination (dysuria) 01/15/2012 789.09 ABDOMINAL PAIN OTHER SPECIFIED SITE 01/15/2012 788.1 pain during urination (dysuria) 01/15/2012 789.09 ABDOMINAL PAIN OTHER SPECIFIED SITE 01/15/2012 MCMAHON LAWRENCE SANDRA IVERSON 788.1 pain during urination (dysuria) 01/15/2012 SALOME LAWRENCE SANDRA IVERSON 789.09 ABDOMINAL PAIN OTHER SPECIFIED SITE 01/15/2012 SALOME LEVINMariano SANDRA IVERSON 788.1 pain during urination (dysuria) 01/15/2012 SALOME LAWRENCE SANDRA IVERSON 789.09 ABDOMINAL PAIN OTHER SPECIFIED SITE 01/15/2012 SALOME LEVINMariano SANDRA IVERSON 788.1 pain during urination (dysuria) 01/15/2012 SALOME LAWRENCE SANDRA IVERSON 789.09 ABDOMINAL PAIN OTHER SPECIFIED SITE 01/15/2012 SALOME LEVINMariano SANDRA IVERSON 788.1 pain during urination (dysuria) 01/15/2012 SALOME LEVINMariano SANDRA IVERSON 789.09 ABDOMINAL PAIN OTHER SPECIFIED SITE 01/15/2012 SALOME LEVINMariano SANDRA IVERSON 788.1 pain during urination (dysuria) 01/15/2012 SALOME LEVINMariano SANDRA IVERSON 789.09 ABDOMINAL PAIN OTHER SPECIFIED SITE 01/15/2012 LENARD SMITH DDS 788.1 pain during urination (dysuria) 01/15/2012 LENARD SMITH DDS 789.09 ABDOMINAL PAIN OTHER SPECIFIED SITE 01/15/2012 FREDY BRAUN DDS 788.1 pain during urination (dysuria) 01/15/2012 FREDY BRAUN DDS 789.09 ABDOMINAL PAIN OTHER SPECIFIED SITE 01/15/2012 ZENIA GARZA MD 788.1 pain during urination (dysuria) 01/15/2012 ZENIA GARZA MD 789.09 ABDOMINAL PAIN OTHER SPECIFIED SITE 01/15/2012 PRINCE OSEI APRN R 788.1 pain during urination (dysuria) 01/15/2012 SEA UNDERCAR SPECIALIST, PRINCE R 789.09 ABDOMINAL PAIN OTHER SPECIFIED SITE 01/15/2012 TASHA KEATING APRN L 788.1 pain during urination (dysuria) 01/15/2012 MICHAEL KEATING APRNA L 789.09 ABDOMINAL PAIN OTHER SPECIFIED SITE 01/16/2012 Ot 558.9 NONINF GASTROENTERIT NEC 01/16/2012 Ot 787.91 DIARRHEA 01/22/2012 SALOME BRAVO SANDRA KISHOR 733.92 CHONDROMALACIA 01/22/2012 SALOME BRAVO SANDRA KISHOR 733.92 CHONDROMALACIA 01/22/2012 SALOME BRAVO SANDRA MADRIGALH 733.92 CHONDROMALACIA 01/22/2012 733.92 CHONDROMALACIA 01/22/2012 733.92 CHONDROMALACIA 01/22/2012 733.92 CHONDROMALACIA 01/22/2012 733.92 CHONDROMALACIA 01/22/2012 SALOME BRAVO SANDRA KISHOR 733.92 CHONDROMALACIA 01/22/2012 SALOME BRAVO SANDRA KISHOR 733.92 CHONDROMALACIA 01/22/2012 SALOME BRAVO SANDRA MADRIGALH 733.92 CHONDROMALACIA 01/22/2012 SALOME BRAVO SANDRA MADRIGALH 733.92 CHONDROMALACIA 01/22/2012 SALOME BRAVO SANDRA MADRIGALH 733.92 CHONDROMALACIA 01/22/2012 LUIS LANGSLENARD 733.92 CHONDROMALACIA 01/22/2012 FREDY BRAUN DDS 733.92 CHONDROMALACIA 01/22/2012 ZENIA GARZA MD 733.92 CHONDROMALACIA 01/22/2012 PRINCE OSEI APRN R 733.92 CHONDROMALACIA 01/22/2012 RISHABH UNDERCAR SPECIALIST, TASHA L 733.92 CHONDROMALACIA 03/25/2012 SALOME BRAVO SANDRA KISHOR 300.02 AN GEN ANXIETY 03/25/2012 SALOME BRAVO SANDRA KISHOR 314.01 ADHD COMBINED 03/25/2012 SALOME BRAVO SANDRA MADRIGALH V58.69 MEDICATION HIGH RISK 03/25/2012 SALOME BRAVO SANDRA KISHOR 300.02 AN GEN ANXIETY 03/25/2012 SALOME BRAVO SANDRA KISHOR 314.01 ADHD COMBINED 03/25/2012 SALOME UNDERCAR SPECIALIST, SANDRA IVERSON V58.69 MEDICATION HIGH RISK 03/25/2012 SALOME UNDERCAR SPECIALIST, SANDRA IVERSON 300.02 AN GEN ANXIETY 03/25/2012 SALOME LEVINN, SANDRA IVERSON 314.01 ADHD COMBINED 03/25/2012 MCMAHON UNDERCAR SPECIALIST, SANDRA IVERSON V58.69 MEDICATION HIGH RISK 03/25/2012 300.02 AN GEN ANXIETY 03/25/2012 314.01 ADHD COMBINED 03/25/2012 V58.69 MEDICATION HIGH RISK 03/25/2012 300.02 AN GEN ANXIETY 03/25/2012 314.01 ADHD COMBINED 03/25/2012 V58.69 MEDICATION HIGH RISK 03/25/2012 300.02 AN GEN ANXIETY 03/25/2012 314.01 ADHD COMBINED 03/25/2012 V58.69 MEDICATION HIGH RISK 03/25/2012 300.02 AN GEN ANXIETY 03/25/2012 314.01 ADHD COMBINED 03/25/2012 V58.69 MEDICATION HIGH RISK 03/25/2012 SALOME LEVINN, SANDRA IVERSON 300.02 AN GEN ANXIETY 03/25/2012 MCMAHON UNDERCAR SPECIALIST, SANDRA IVERSON 314.01 ADHD COMBINED 03/25/2012 SALOME LEVINN, SANDRA IVERSON V58.69 MEDICATION HIGH RISK 03/25/2012 SALOME LEVINN, SANDRA IVERSON 300.02 AN GEN ANXIETY 03/25/2012 MCMAHON UNDERCAR SPECIALIST, SANDRA IVERSON 314.01 ADHD COMBINED 03/25/2012 SALOME LEVINN, SANDRA IVERSON V58.69 MEDICATION HIGH RISK 03/25/2012 SALOME LEVINN, SANDRA IVERSON 300.02 AN GEN ANXIETY 03/25/2012 MCMAHON UNDERCAR SPECIALIST, SANDRA IVERSON 314.01 ADHD COMBINED 03/25/2012 SALOME LEVINN, SANDRA IVERSON V58.69 MEDICATION HIGH RISK 03/25/2012 MCMAHON UNDERCAR SPECIALIST, SANDRA IVERSON 300.02 AN GEN ANXIETY 03/25/2012 MCMAHON UNDERCAR SPECIALIST, SANDRA IVERSON 314.01 ADHD COMBINED 03/25/2012 SALOME LEVINN, SANDRA IVERSON V58.69 MEDICATION HIGH RISK 03/25/2012 MCMAHON UNDERCAR SPECIALIST, SANDRA IVERSON 300.02 AN GEN ANXIETY 03/25/2012 MCMAHON UNDERCAR SPECIALIST, SANDRA IVERSON 314.01 ADHD COMBINED 03/25/2012 SANDRA MCMAHON APRN V58.69 MEDICATION HIGH RISK 03/25/2012 WHITE DDS, LENARD J 300.02 AN GEN ANXIETY 03/25/2012 WHITE DDS, LENARD J 314.01 ADHD COMBINED 03/25/2012 WHITE DDS, LENARD J V58.69 MEDICATION HIGH RISK 03/25/2012 BRAUN DDS, FREDY 300.02 AN GEN ANXIETY 03/25/2012 BRAUN DDS, FREDY 314.01 ADHD COMBINED 03/25/2012 BRAUN DDS, FREDY V58.69 MEDICATION HIGH RISK 03/25/2012 SEA UNDERCAR SPECIALIST, PRINCE R 300.02 AN GEN ANXIETY 03/25/2012 SEA UNDERCAR SPECIALIST, PRINCE R 314.01 ADHD COMBINED 03/25/2012 SEA UNDERCAR SPECIALIST, PRINCE R V58.69 MEDICATION HIGH RISK 03/25/2012 MADL UNDERCAR SPECIALIST, TASHA L 300.02 AN GEN ANXIETY 03/25/2012 MADL UNDERCAR SPECIALIST, TASHA L 314.01 ADHD COMBINED 03/25/2012 MADL UNDERCAR SPECIALIST, TASHA L V58.69 MEDICATION HIGH RISK 04/20/2012 Ot 305.1 TOBACCO USE DISORDER 04/20/2012 Ot 786.52 PAINFUL RESPIRATION 07/17/2012 SOFI BOWSER DO Ot 682.3 CELLULITIS OF ARM 11/23/2012 TOYA EASON APRN Ot 844.9 SPRAIN OF KNEE LEG NOS 11/23/2012 TOYA EASON APRN Ot 959.7 LOWER LEG INJURY NOS 11/23/2012 TOYA EASON APRN Ot E000.8 OTHER EXTERNAL CAUSE STATUS 11/23/2012 TOYA EASON APRN Ot E016.9 OTH ACT INVG PROPERTY LAND MAINT,BUILD 11/23/2012 TOYA EASON APRN Ot E927.8 OTH OVEREXERTION STRENUOUS REPETITIV 12/24/2012 TOYA EASON APRN Ot 724.2 LUMBAGO 12/31/2012 TOYA EASON APRN Ot 786.2 COUGH 12/31/2012 TOYA EASON APRN Ot V04.81 ND FOR PROPHYLACTIC VACCIN AND INOCULATI 01/21/2013 SOFI BOWSER DO Ot 078.12 PLANTAR WART 01/21/2013 SOFI BOWSER DO Ot V04.81 ND FOR PROPHYLACTIC VACCIN AND INOCULATI 02/21/2013 SANDRA MCMAHON APRN 304.30 CANNABIS DEPENDENCE 02/21/2013 SANDRA MCMAHON APRN 304.30 CANNABIS DEPENDENCE 02/21/2013 SANDRA MCMAHON APRN 304.30 CANNABIS DEPENDENCE 02/21/2013 SANDRA MCMAHON APRN 304.30 CANNABIS DEPENDENCE 02/21/2013 SANDRA MCMAHON APRN 304.30 CANNABIS DEPENDENCE 02/21/2013 WHITE DDS, LENARD J 304.30 CANNABIS DEPENDENCE 02/21/2013 BRAUN DDS, FREDY 304.30 CANNABIS DEPENDENCE 02/21/2013 MYLENE OSEI APRNINA R 304.30 CANNABIS DEPENDENCE 02/21/2013 TASHA KEATING APRN L 304.30 CANNABIS DEPENDENCE 04/04/2013 SANDRA MCMAHON APRN 314.00 ADHD INATTENTIVE 04/04/2013 SANDRA MCMAHON APRN 314.00 ADHD INATTENTIVE 04/04/2013 SANDRA MCMAHON APRN 314.00 ADHD INATTENTIVE 04/04/2013 SANDRA MCMAHON APRN 314.00 ADHD INATTENTIVE 04/04/2013 WHITE DDS, LENARD J 314.00 ADHD INATTENTIVE 04/04/2013 BRAUN DDS, FREDY 314.00 ADHD INATTENTIVE 04/04/2013 SEA BRAVO PRINCE R 314.00 ADHD INATTENTIVE 04/04/2013 TASHA KEATING APRN L 314.00 ADHD INATTENTIVE 06/12/2013 TOYA EASON APRN Ot 603.9 HYDROCELE NOS 06/12/2013 TOYA EASON APRN Ot 789.09 ABDOMINAL PAIN, OTHER SPECIFIED SITE 09/28/2013 TOYA EASON APRN Ot 724.2 LUMBAGO 09/28/2013 TOYA EASON UNDERCAR SPECIALIST Ot 724.4 LUMBOSACRAL NEURITIS NOS 11/17/2013 MYLENE OSEI APRNINA R 788.41 URINARY FREQUENCY 11/17/2013 MYLENE OSEI APRNINA R V70.0 ROUTINE GENERAL MEDICAL EXAMINATION AT A HEALTH CARE FACILITY 11/17/2013 TASHA KEATING APRN L 788.41 URINARY FREQUENCY 11/17/2013 TASHA KEATING APRN V70.0 ROUTINE GENERAL MEDICAL EXAMINATION AT A HEALTH CARE FACILITY 03/30/2014 TASHA KEATING APRN V18.0 FAMILY HISTORY OF DIABETES MELLITUS 05/22/2014 Ot 723.1 CERVICALGIA 06/27/2014 JAREN BAKER MD ([facility]) Ot 309.81 POSTTRAUMATIC STRESS DISORDER 06/27/2014 JAREN BAKER MD ([facility]) Ot 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 06/27/2014 JAREN BAKER MD ([facility]) Ot 719.46 JOINT PAIN-L/LEG 06/27/2014 JAREN BAKER MD ([facility]) Ot V57.1 PHYSICAL THERAPY NEC 07/19/2015 SEDRICK LAM DO Ot F12.10 CANNABIS ABUSE, UNCOMPLICATED 07/19/2015 SEDRICK LAM DO Ot F15.10 OTHER STIMULANT ABUSE, UNCOMPLICATED 02/09/2016 TOYA EASON APRN Ot F17.210 NICOTINE DEPENDENCE, CIGARETTES, UNCOMPL 02/09/2016 TOYA EASON APRN Ot M17.12 UNILATERAL PRIMARY OSTEOARTHRITIS, LEFT 02/09/2016 TOYA EASON APRN Ot S73.102A UNSPECIFIED SPRAIN OF LEFT HIP, INITIAL 02/09/2016 TOYA EASON APRN Ot S83.92XA SPRAIN OF UNSPECIFIED SITE OF LEFT KNEE, 02/09/2016 TOYA EASON APRN Ot S89.92XA UNSPECIFIED INJURY OF LEFT LOWER LEG, IN 02/09/2016 TOYA EASON APRN Ot W11.XXXA FALL ON AND FROM LADDER, INITIAL ENCOUNT 02/09/2016 TOYA EASON APRN Ot Y92.[address] IN SINGLE-FAMILY (PRIVATE) HO 02/09/2016 TOYA EASON APRN Ot Y93.9 ACTIVITY, UNSPECIFIED 02/09/2016 TOYA EASON APRN Ot Y99.8 OTHER EXTERNAL CAUSE STATUS 02/11/2016 TOYA EASON APRN Ot F17.210 NICOTINE DEPENDENCE, CIGARETTES, UNCOMPL 02/11/2016 TOYA EASON APRN Ot M17.12 UNILATERAL PRIMARY OSTEOARTHRITIS, LEFT 02/11/2016 TOYA EASON APRN Ot S73.102A UNSPECIFIED SPRAIN OF LEFT HIP, INITIAL 02/11/2016 TOYA EASON APRN Ot S83.92XA SPRAIN OF UNSPECIFIED SITE OF LEFT KNEE, 02/11/2016 TOYA EASON APRN Ot S89.92XA UNSPECIFIED INJURY OF LEFT LOWER LEG, IN 02/11/2016 TOYA EASON APRN Ot W11.XXXA FALL ON AND FROM LADDER, INITIAL ENCOUNT 02/11/2016 TOYA EASON APRN Ot Y92.[address] IN SINGLE-FAMILY (PRIVATE) 02/11/2016 TOYA EASON APRN Ot Y93.9 ACTIVITY, UNSPECIFIED 02/11/2016 TOYA EASON APRN Ot Y99.8 OTHER EXTERNAL CAUSE STATUS 02/13/2016 PATRACI DO SEDRICK S Ot F12.10 CANNABIS ABUSE, UNCOMPLICATED 02/13/2016 CAROLE WING SEDRICK S Ot F15.10 OTHER STIMULANT ABUSE, UNCOMPLICATED 02/19/2016 TIFFANIEONI DO SEDRICK S Ot F12.10 CANNABIS ABUSE, UNCOMPLICATED 02/19/2016 PAONI DO SEDRICK S Ot F15.10 OTHER STIMULANT ABUSE, UNCOMPLICATED 02/19/2016 TIFFANIEONI SEDRICK WING S Ot F12.10 CANNABIS ABUSE, UNCOMPLICATED 02/19/2016 PAONI , SEDRICK S Ot F15.10 OTHER STIMULANT ABUSE, UNCOMPLICATED 02/21/2016 SUKH DELVALLE Ot F17.210 NICOTINE DEPENDENCE, CIGARETTES, UNCOMPL 02/21/2016 SUKH DELVALLE Ot N20.1 CALCULUS OF URETER 02/21/2016 SUKH DELVALLE Ot R10.32 LEFT LOWER QUADRANT PAIN 02/27/2016 SUKH DELVALLE Ot F17.210 NICOTINE DEPENDENCE, CIGARETTES, UNCOMPL 02/27/2016 SUKH DELVALLE Ot N20.0 CALCULUS OF KIDNEY 02/27/2016 SUKH DELVALLE Ot N39.0 URINARY TRACT INFECTION, SITE NOT SPECIF 02/27/2016 SUKH DELVALLE Ot R10.32 LEFT LOWER QUADRANT PAIN Procedures Code Description [place] [address] UA W/ CULTURE IF INDICATED 01/15/2012 TERENCE EAGLE 01/15/2012 90295 THERAPUTIC INJ SQ/IM 02/04/2012 J1885 TORADOL INJ 02/04/2012 39102 UA LONG DIP 02/04/2012 59375 US SCROTUM ULTRASOUND 02/12/2012 99700 URINE DRUG SCREEN (IN-HOUSE ) 05/05/2012 97471 URINE DRUG SCREEN (IN-HOUSE ) 06/01/2012 25222 URINE DRUG SCREEN (IN-HOUSE ) 07/02/2012 29725 URINE DRUG SCREEN (IN-HOUSE ) 07/06/2012 61282 URINE DRUG SCREEN (IN-HOUSE ) 08/12/2012 88684 URINE AMPHETAMINE GC/MS 08/13/2012 47209 URINE METHAMPHETAMINE GC/MS 08/13/2012 99227 URINE DRUG SCREEN (IN-HOUSE ) 02/21/2013 81476 URINE DRUG SCREEN (IN-HOUSE ) 05/03/2013 55792 UA LONG DIP 05/03/2013 02316 UA LONG DIP 05/04/2013 42732 URINE DRUG SCREEN (IN-HOUSE ) 05/04/2013 96528 URINE DRUG SCREEN (IN-HOUSE ) 07/25/2013 92464 URINE BENZO GC/MS 07/26/2013 56829 URINE METH/AMPHETAMINE GC/ MS 07/26/2013 51231 UA LONG DIP 11/17/2013 ORTHOPURBAN PETERS 11/17/2013 16121 AMERITOX 11/23/2013 29741 ROUTINE VENIPUNCTURE 03/30/2014 18793 UA W/ CULTURE IF INDICATED 03/30/2014 14302 A1C (IN-HOUSE) 03/30/2014 48867 CBC 03/30/2014 [id number] GFR CALC (RESULT ONLY) 03/30/2014 06067 CMP 03/30/2014 41389 TSH 03/30/2014 Results Test Result Range Urine drug screening test - 02/19/16 20:34 Urine phencyclidine detection by screening method NEGATIVE NEGATIVE Urine benzodiazepines detection by screening method NEGATIVE NEGATIVE Urine cocaine detection NEGATIVE NEGATIVE Urine amphetamines detection by screening method NEGATIVE NEGATIVE Urine methamphetamine detection by screening method NEGATIVE NEGATIVE Urine cannabinoids detection by screening method POSITIVE NEGATIVE Urine opiates detection by screening method NEGATIVE NEGATIVE Urine barbiturates detection NEGATIVE NEGATIVE Screening urine tricyclic antidepressants detection NEGATIVE NEGATIVE Urine methadone detection by screening method NEGATIVE NEGATIVE Urine oxycodone detection NEGATIVE NEGATIVE Urine propoxyphene detection NEGATIVE NEGATIVE Complete urinalysis with reflex to culture - 02/19/16 20:34 Urine color determination YELLOW NRG Urine clarity determination CLEAR NRG Urine pH measurement by test strip 5 5-9 Specific gravity of urine by test strip 1.025 1.016- 1.022 Urine protein assay by test strip, semi-quantitative NEGATIVE NEGATIVE Urine glucose detection by automated test strip NEGATIVE NEGATIVE Erythrocytes detection in urine sediment by light microscopy 1+ NEGATIVE Urine ketones detection by automated test strip NEGATIVE NEGATIVE Urine nitrite detection by test strip NEGATIVE NEGATIVE Urine total bilirubin detection by test strip NEGATIVE NEGATIVE Urine urobilinogen measurement by automated test strip (mass/volume) NORMAL NORMAL Urine leukocyte esterase detection by dipstick NEGATIVE NEGATIVE Automated urine sediment erythrocyte count by microscopy (number/high power field) [HPF] NRG Automated urine sediment leukocyte count by microscopy (number/high power field ) [HPF] NRG Bacteria detection in urine sediment by light microscopy NEGATIVE NRG Crystals detection in urine sediment by light microscopy NONE NRG Casts detection in urine sediment by light microscopy NONE NRG Mucus detection in urine sediment by light microscopy NEGATIVE NRG Complete urinalysis with reflex to culture NO NRG Complete urinalysis with reflex to culture - 02/25/16 13:55 Urine color determination YELLOW NRG Urine clarity determination CLEAR NRG Urine pH measurement by test strip 5 5-9 Specific gravity of urine by test strip 1.020 1.016- 1.022 Urine protein assay by test strip, semi-quantitative 1+ NEGATIVE Urine glucose detection by automated test strip NEGATIVE NEGATIVE Erythrocytes detection in urine sediment by light microscopy 1+ NEGATIVE Urine ketones detection by automated test strip NEGATIVE NEGATIVE Urine nitrite detection by test strip POSITIVE NEGATIVE Urine total bilirubin detection by test strip NEGATIVE NEGATIVE Urine urobilinogen measurement by automated test strip (mass/volume) NORMAL NORMAL Urine leukocyte esterase detection by dipstick 1+ NEGATIVE Automated urine sediment erythrocyte count by microscopy (number/high power field) [HPF] NRG Automated urine sediment leukocyte count by microscopy (number/high power field ) [HPF] NRG Bacteria detection in urine sediment by light microscopy TRACE NRG Crystals detection in urine sediment by light microscopy NONE NRG Casts detection in urine sediment by light microscopy NONE NRG Mucus detection in urine sediment by light microscopy NEGATIVE NRG Complete urinalysis with reflex to culture YES NRG Other elements identification in urine sediment by light microscopy FEW SPERM NRG Bacterial urine culture - 02/25/16 13:55 Bacterial urine culture NG NRG Complete blood count (CBC) with automated white blood cell (WBC) differential - 02/25/16 15:25 Blood leukocytes automated count (number/volume) 9.9 10*3/uL 4.3-11.0 Blood erythrocytes automated count (number/volume) 4.93 10*6/uL 4.35-5.85 Venous blood hemoglobin measurement (mass/volume) 14.8 g/dL 13.3-17.7 Blood hematocrit (volume fraction) 43 % 40-54 Automated erythrocyte mean corpuscular volume 87 [foz_us] 80-99 Automated erythrocyte mean corpuscular hemoglobin (mass per erythrocyte) 30 pg 25-34 Automated erythrocyte mean corpuscular hemoglobin concentration measurement ( mass/volume) 35 g/dL 32-36 Automated erythrocyte distribution width ratio 13.0 % 10.0-14.5 Automated blood platelet count (count/volume) 290 10*3/uL 130-400 Automated blood platelet mean volume measurement 9.3 [foz_us] 7.4-10.4 Automated blood neutrophils/100 leukocytes 58 % 42-75 Automated blood lymphocytes/100 leukocytes 34 % 12-44 Blood monocytes/100 leukocytes 6 % 0-12 Automated blood eosinophils/100 leukocytes 1 % 0-10 Automated blood basophils/100 leukocytes 0 % 0-10 Blood neutrophils automated count (number/volume) 5.8 10*3 1.8-7.8 Blood lymphocytes automated count (number/volume) 3.4 10*3 1.0-4.0 Blood monocytes automated count (number/volume) 0.6 10*3 0.0-1.0 Automated eosinophil count 0.1 10*3/uL 0.0-0.3 Automated blood basophil count (count/volume) 0.0 10*3/uL 0.0-0.1 Whole blood basic metabolic panel - 02/25/16 15:25 Serum or plasma sodium measurement (moles/volume) 139 mmol/L 135-145 Serum or plasma potassium measurement (moles/volume) 3.9 mmol/L 3.6-5.0 Serum or plasma chloride measurement (moles/volume) 107 mmol/L 98-107 Carbon dioxide 21 mmol/L 21-32 Serum or plasma anion gap determination (moles/volume) 11 mmol/L 5-14 Serum or plasma urea nitrogen measurement (mass/volume) 16 mg/dL 7-18 Serum or plasma creatinine measurement (mass/volume) 0.92 mg/dL 0.60-1.30 Serum or plasma urea nitrogen/creatinine mass ratio 17 NRG Serum or plasma creatinine measurement with calculation of estimated glomerular filtration rate > NRG Serum or plasma glucose measurement (mass/volume) 95 mg/dL 70-105 Serum or plasma calcium measurement (mass/volume) 9.6 mg/dL 8.5-10.1 Encounters ACCT No. Visit Date/Time Discharge Status Pt. Type Provider Facility Loc./Unit Complaint [id number] 03/30/2014 11:15:00 03/30/2014 23:59:59 CLS Outpatient RISHABH LEVINNTASHA [id number] 11/17/2013 09:12:00 11/17/2013 23:59:59 CLS Outpatient SEA UNDERCAR SPECIALIST PRINCE Barroso [id number] 08/16/2013 10:50:00 08/16/2013 23:59:59 CLS Outpatient FREDY BRAUN DDS [id number] 08/05/2013 08:58:00 08/05/2013 23:59:59 CLS Outpatient LENARD SMITH DDS [id number] 07/25/2013 13:51:00 07/25/2013 23:59:59 CLS Outpatient SALOME LEVINNSANDRA [id number] 06/17/2013 10:26:00 06/17/2013 23:59:59 CLS Outpatient SANDRA MCMAHON APRN [id number] 05/04/2013 11:35:00 05/04/2013 23:59:59 CLS Outpatient SANDRA MCMAHON APRN [id number] 04/04/2013 14:23:00 04/04/2013 23:59:59 CLS Outpatient SANDRA MCMAHON APRN [id number] 02/21/2013 11:01:00 02/21/2013 23:59:59 CLS Outpatient SALOME LEVINNSANDRA [id number] 06/01/2012 11:58:00 06/01/2012 23:59:59 CLS Outpatient SALOME LEVINNSANDRA [id number] 05/05/2012 13:14:00 05/05/2012 23:59:59 CLS Outpatient SALOME LEVINNSANDRA [id number] 03/25/2012 14:29:00 03/25/2012 23:59:59 CLS Outpatient SALOME LEVINNSANDRA [id number] 11/18/2011 11:26:00 11/18/2011 23:59:59 CLS Outpatient ZENIA GARZA MD [id number] 08/12/2012 10:27:00 Document Registration [id number] 07/06/2012 13:51:00 Document Registration [id number] 07/02/2012 09:46:00 Document Registration [id number] 06/23/2012 00:00:00 Document Registration [id number] 02/25/2016 13:05:00 02/25/2016 16:50:00 DIS Outpatient SUKH DELVALLE [facility] ER KIDNEY STONES [id number] 02/19/2016 19:45:00 02/19/2016 22:28:00 DIS Outpatient SUKH DELVALLE [facility] ER POSSIBLE KIDNEY STONES [id number] 02/09/2016 12:47:00 02/09/2016 14:30:00 DIS Emergency TOYA EASON APRN [facility] ER L KNEE AND HIP INJ [id number] 07/07/2015 07:28:00 07/07/2015 23:59:59 CLS Outpatient SEDRICK LAM DO [facility] LABNPT SENT FROM [place] [id number] 05/14/2015 09:38:00 05/14/2015 23:59:59 CLS Preadmit LORENZO TSAI [facility] REHAB [id number] 06/27/2014 09:54:00 06/27/2014 17:00:00 DIS Outpatient OLIVIA MCCLELLAN, JAREN Lee (DDU) [facility] REHAB KNEE PAIN;ADD; PTSD;ANXIETY;LEARNING DISABILITY [id number] 09/28/2013 16:13:00 09/28/2013 17:11:00 DIS Emergency TOYA EASON APRN [facility] ER L KNEE/L HIP PAIN [id number] 06/12/2013 10:02:00 06/12/2013 12:35:00 DIS Emergency TOYA EASON APRN [facility] ER ABD PAIN [id number] 01/21/2013 08:04:00 01/21/2013 08:35:00 DIS Emergency SOFI BOWSER DO [facility] ER PLANTERS WART ON LEFT FOOT [id number] 12/31/2012 13:11:00 12/31/2012 14:45:00 DIS Emergency TOYA EASON APRN [facility] ER COUGH [id number] 12/24/2012 14:43:00 12/24/2012 15:32:00 DIS Emergency TOYA EASON UNDERCAR SPECIALIST [facility] ER LOWER BACK PAIN [id number] 11/23/2012 11:08:00 11/23/2012 13:19:00 DIS Emergency TOYA EASON UNDERCAR SPECIALIST [facility] ER LT KNEE AND LT HIP PAIN [id number] 08/23/2012 14:33:00 08/23/2012 23:59:59 CLS Outpatient [id number] 07/17/2012 12:01:00 07/17/2012 13:33:00 DIS Emergency SOFI BOWSER DO [facility] ER SKIN INFECTION [id number] 06/09/2014 11:43:00 Document Registration [id number] 05/22/2014 11:59:00 Document Registration [id number] 04/20/2012 11:19:00 Document Registration [id number] 01/16/2012 01:28:00 Document Registration [id number] 01/01/2012 09:09:00 Document Registration [id number] 01/01/2012 00:27:00 Document Registration [id number] 11/14/2011 21:47:00 Document Registration [id number] 05/08/2011 09:08:00 Document Registration [id number] 03/18/2011 15:04:00 Document Registration [id number] 02/10/2011 11:49:00 Document Registration [id number] 11/26/2010 09:36:00 Document Registration [id number] 04/14/2010 12:33:00 Document Registration [id number] 04/11/2010 20:50:00 Document Registration [id number] 12/18/2009 23:40:00 Document Registration [id number] 12/05/2009 11:58:00 Document Registration [id number] 11/08/2009 19:12:00 Document Registration [id number] 10/24/2009 17:26:00 Document Registration
[2017-04-02] MEDS ORDERED: CANABIS OIL PO (11:15)
--- NOTE | 2017-04-02 11:24 | ED Chest Pain ---
General Chief Complaint: Chest Pain Stated Complaint: ACUTE CP Source: patient Exam Limitations: no limitations History of Present Illness Date Seen by Provider: Apr 02, 2017 Time Seen by Provider: 11:22 Initial Comments To ER with chest pain 3 days. Pain is left-sided and dull. No modifying factors. He is a smoker. Reports chronic cough unchanged. No history of this. History of hypertension managed. Only medication is ibuprofen and cannabis oil which he takes for knee pain Severity/Quality: moderate Location: central [facility] po AVIATION MAINTENANCE INSTRUCTOR: No NTG SL AVIATION MAINTENANCE INSTRUCTOR: No Allergies and Home Medications Allergies Coded Allergies: Penicillins (Verified Allergy, Unknown, 02/22/16) Home Medications Ibuprofen 800 Mg Tablet, 800 MG PO Q6H PRN for PAIN, (Reported) [Canabis Oil] , DROP PO DAILY, (Reported) Review of Systems Constitutional: see HPI EENTM: No Symptoms Reported Respiratory: No Symptoms Reported Cardiovascular: See HPI, Chest Pain Gastrointestinal: No Symptoms Reported Genitourinary: No Symptoms Reported Musculoskeletal: no symptoms reported Skin: no symptoms reported Psychiatric/Neurological: No Symptoms Reported Endocrine: No Symptoms Reported Past Ktciuap-Drnlrv-Zxmkcu Hx Patient Social History Alcohol Use: Past History Recreational Drug Use: No Smoking Status: Current Everyday Smoker Type Used: Cigarettes, Electronic/Vapor Recent Foreign Travel: No Contact w/Someone Who Travel: No Recent Hopitalizations: No Immunizations Up To Date Tetanus Booster (TDap): Unknown PED Vaccines UTD: Yes Date of Influenza Vaccine: Mar 20, 2013 Surgeries History of Surgeries: Yes (left knee) Surgeries: Orthopedic Respiratory History of Respiratory Disorde: No Cardiovascular History of Cardiac Disorders: Yes Cardiac Disorders: Hypertension Neurological History of Neurological Disord: No Reproductive System Hx Reproductive Disorders: No Genitourinary Genitourinary Disorders: Kidney Stones Gastrointestinal History of Gastrointestinal Di: No Musculoskeletal History of Musculoskeletal Dis: Yes (LEFT KNEE PROBLEMS) Musculoskeletal Disorders: Arthritis Endocrine History of Endocrine Disorders: No Cancer History of Cancer: No Psychosocial History of Psychiatric Problem: No Integumentary 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) Blood Transfusions History of Blood Disorders: No Family Medical History Significant Family History: No Pertinent Family Hx Physical Exam Vital Signs Capillary Refill : General Appearance: No Apparent Distress, WD/WN HEENT: PERRL/EOMI, TMs Normal Neck: Full Range of Motion, Normal Inspection Respiratory: Normal Breath Sounds, No Accessory Muscle Use, No Respiratory Distress Gastrointestinal: Normal Bowel Sounds, Non Tender, Soft Extremity: Normal Capillary Refill, Normal Inspection Neurologic/Psychiatric: Alert, Oriented x3 Skin: Normal Color, Warm/Dry Progress/Results/Core Measures Results/Orders My Orders Orders - TOYA EASON APRN Chest Pa/Lat (2 View) (04/02/17 11:14) Cbc With Automated Diff (04/02/17 11:14) Troponin I (04/02/17 11:14) Ekg Tracing (04/02/17 11:14) Comprehensive Metabolic Panel (04/02/17 11:14) Lipase (04/02/17 11:14) Departure Impression Impression: Primary Impression: Chest pain Disposition: 01 HOME, SELF-CARE Condition: Stable Departure-Patient Inst. Decision time for Depature: 11:24 Referrals: ZENIA GARZA MD (PCP/Family) Primary Care Physician Patient Instructions: Chest Pain That Is Not Caused by the Heart (DC) TOYA EASON APRN Apr 02, 2017 11:24
[2017-04-02 11:35] LABS: BASOPHILS % (AUTO) 0 % (0-10); EOSINOPHILS # (AUTO) 0.1 10^3/uL (0.0-0.3); EOSINOPHILS % (AUTO) 1 % (0-10); HEMATOCRIT 43 % (40-54); HEMOGLOBIN 15.1 G/DL (13.3-17.7); LYMPHOCYTES # (AUTO) 2.7 X 10^3 (1.0-4.0); LYMPHOCYTES % (AUTO) 25 % (12-44); MEAN CORPUSCULAR HEMOGLOBIN 30 PG (25-34); MEAN CORPUSCULAR HGB CONC 35 G/DL (32-36); MEAN CORPUSCULAR VOLUME 87 FL (80-99); MEAN PLATELET VOLUME 9.1 FL (7.4-10.4); MONOCYTES # (AUTO) 0.7 X 10^3 (0.0-1.0); MONOCYTES % (AUTO) 6 % (0-12); NEUTROPHILS # (AUTO) 7.6 X 10^3 (1.8-7.8); NEUTROPHILS % (AUTO) 68 % (42-75); PLATELET COUNT 327 10^3/uL (130-400); RED CELL DISTRIBUTION WIDTH 12.8 % (10.0-14.5); WHITE BLOOD COUNT 11.1 10^3/uL (4.3-11.0)
[2017-04-02 11:55] LABS: ALANINE AMINOTRANSFERASE 27 U/L (0-55); ALBUMIN 4.5 GM/DL (3.2-4.5); ALKALINE PHOSPHATASE 61 U/L (40-136); BILIRUBIN,TOTAL 0.7 MG/DL (0.1-1.0); BUN/CREATININE RATIO 9; CALCIUM 9.6 MG/DL (8.5-10.1); CARBON DIOXIDE 24 MMOL/L (21-32); CHLORIDE 104 MMOL/L (98-107); CREATININE SERUM 1.06 MG/DL (0.60-1.30); GFR ESTIMATED > 60; GLUCOSE 100 MG/DL (70-105); LIPASE 42 U/L (8-78); POTASSIUM 3.8 MMOL/L (3.6-5.0); SODIUM 140 MMOL/L (135-145); TOTAL PROTEIN 7.6 GM/DL (6.4-8.2)
--- NOTE | 2017-04-02 12:03 | Diagnostic Imaging Report ---
INDICATION: Chest pain. TIME OF EXAM: 12:10 p.m. Comparison is made with prior study from 12/31/2012. FINDINGS: The heart size is normal. The lungs are clear. No pleural effusion or pneumothorax is identified. The pulmonary vascularity is normal. IMPRESSION: No acute abnormality detected. Dictated by: Dictated on workstation # [id number]
[2017-04-02 12:17] VITALS: BP 130/92
== END 2017-04-02 12:17 | disposition home or self-care (01) ==
LOC: EDUNIT# 10:26 → ER 10:28
DX: R07.9 Chest pain, unspecified (principal); I10 Essential (primary) hypertension; F17.210 Nicotine dependence, cigarettes, uncomplicated; Z87.442 Personal history of urinary calculi
CPT/HCPCS: 36415; 71046; 80053; 83690; 84484; 85025; 93005

== ENCOUNTER 2018-06-12 19:53 | Emergency (ER) | payer SELFPAY ==
[~2018-06-12] VITALS: Ht 185.4 cm; Wt 112.0 kg
[~2018-06-12 19:53] MED LIST changes: +CANABIS OIL PO; +HYDR-34 PO; -HYDR-3816 PO; -OXYC-197 PO; +OXYC1TAB87 PO
--- NOTE | 2018-06-12 21:09 | Diagnostic Imaging Report ---
INDICATION: Medial right knee pain with no known injury. EXAMINATION: Three views of the right knee were obtained. FINDINGS: No fracture, dislocation or other acute bony abnormality. There is minimal narrowing and spurring of the patellofemoral compartment. IMPRESSION: There are minimal degenerative changes present with no acute bony abnormality seen. Dictated by: Dictated on workstation # [id number]
--- NOTE | 2018-06-12 21:18 | ED Lower Extremity ---
General Chief Complaint: Lower Extremity Stated Complaint: R KNEE PAIN Nursing Triage Note: PT AMB TO TRIAGE WITH COMPLAINT OF RIGHT KNEE PAIN. STATES PAIN HAS BEEN GOING ON FOR THREE DAYS. STATES HE HEARD A "POP" ROUGHLY THREE DAYS. STATES HE FEELS LIKE TORE HER MENISCUS. STATES HE HAS TAKEN TRAMADOL FOR THE PAIN. Nursing Sepsis Screen: No Definite Risk History of Present Illness Date Seen by Provider: Jun 12, 2018 Time Seen by Provider: 20:55 Initial Comments 37-year-old male reports for 3 day history of right knee pain. He's had a significant history of injuries and surgeries to his left knee. He states that he felt a pop in his right knee 3 days ago and since then has been having pain. He is on tramadol and ibuprofen. He has not been using crutches or ice. No previous history of injuries to his right knee. Onset: other (3 days ago) Severity: mild Pain/Injury Location: right knee Method of Injury: unknown Modifying Factors: Improves With Rest Allergies and Home Medications Allergies Coded Allergies: Penicillins (Verified Allergy, Unknown, 02/22/16) Home Medications Ibuprofen 800 Mg Tablet, 800 MG PO Q6H PRN for PAIN, (Reported) [Canabis Oil] , DROP PO DAILY, (Reported) Patient Home Medication List Home Medication List Reviewed: Yes Review of Systems Constitutional: no symptoms reported, see HPI Musculoskeletal: see HPI, joint pain (right knee), joint swelling All Other Systems Reviewed Negative Unless Noted: Yes Past Drxdrmk-Miekwy-Aiuzxf Hx Past Med/Social Hx: Reviewed Nursing Past Med/Soc Hx Patient Social History Alcohol Use: Occasionally Uses Recreational Drug Use: No Smoking Status: Current Everyday Smoker Type Used: Cigarettes, Electronic/Vapor Recent Foreign Travel: No Contact w/Someone Who Travel: No Recent Infectious Disease Expo: No Recent Hopitalizations: No Immunizations Up To Date Tetanus Booster (TDap): Unknown PED Vaccines UTD: Yes Date of Influenza Vaccine: Mar 20, 2013 Past Medical History Surgeries: Yes (left knee) Orthopedic Respiratory: No Cardiac: Yes Hypertension Neurological: No Reproductive Disorders: No Kidney Stones Gastrointestinal: No Musculoskeletal: Yes (LEFT KNEE PROBLEMS) Arthritis Endocrine: No Cancer: No Psychosocial: No Integumentary: Yes (MULTIPLE PLANTAR'S WARTS) Blood Disorders: No Family Medical History No Pertinent Family Hx Physical Exam Vital Signs Vital Signs - First Documented 3/30/19 20:04 Pulse 91 Resp 20 B/P (MAP) 142/83 (102) Pulse Ox 97 O2 Delivery Room Air Capillary Refill : Less Than 3 Seconds Height, Weight, BMI Height: 6'1.00" Weight: 247lbs. oz. 112.052569zp; 35.62 BMI Method:Stated General Appearance: WD/WN, no apparent distress Cardiovascular: normal peripheral pulses, regular rate, rhythm Respiratory: chest non-tender, lungs clear, normal breath sounds Knees: right knee normal inspection, right knee normal range of motion, right knee bone tenderness (medial joint space, medial femoral condyle), right knee joint effusion (trace), right knee soft tissue tenderness (medial joint line), right knee other (negative anterior and posterior drawer, positive Katie maneuver, no medial or lateral instability.) Neurologic/Psychiatric: no motor/sensory deficits, alert, normal mood/affect, oriented x 3 Skin: normal color, warm/dry Progress/Results/Core Measures Results/Orders My Orders Orders - CHUY MARTINEZ Knee, Right, 3 Views (06/12/18 20:55) Tramadol Tablet (Ultram Tablet) (06/12/18 22:30) Vital Signs/I&O 06/12/18 06/12/18 20:04 22:34 Pulse 91 89 Resp 20 20 B/P (MAP) 142/83 (102) 138/80 (99) Pulse Ox 97 97 O2 Delivery Room Air Blood Pressure Mean: 102 Progress Progress Note : Time: 20:55 Progress Note Patient seen and evaluated, we'll give tramadol 100 mg for knee pain, 6 inch Brendan wrap applied to right knee. Crutches provided and and education on partial weightbearing status. Discharge instructions and return precautions reviewed with the patient. He will call for an appointment with Ghassan De Souza APRN Diagnostic Imaging Diagonstic Imaging: Xray Plain Films/CT/US/NM/MRI: knee Comments NAME: JOSSY DE SOUZA MED REC#: [id number] PT STATUS: REG ER : 1980 PHYSICIAN: CHUY MARTINEZ ADMIT DATE: 06/12/18/ER Signed Date of Exam: 06/12/18 KNEE, RIGHT, 3 VIEWS INDICATION: Medial right knee pain with no known injury. EXAMINATION: Three views of the right knee were obtained. FINDINGS: No fracture, dislocation or other acute bony abnormality. There is minimal narrowing and spurring of the patellofemoral compartment. IMPRESSION: There are minimal degenerative changes present with no acute bony abnormality seen. Dictated by: Dictated on workstation # [id number] Dict: 06/12/182106 Trans: 06/12/182110 Interpreted by: DWIGHT PADILLA MD Electronically signed by: DWIGHT PADILLA MD 06/12/182110 Reviewed: Reviewed/Discussed Departure Impression Primary Impression: Right knee pain Qualified Codes: M25.561 - Pain in right knee Additional Impression: Degenerative joint disease of knee, right Qualified Codes: M17.11 - Unilateral primary osteoarthritis, right knee Disposition: 01 HOME, SELF-CARE Condition: Improved Departure-Patient Inst. Decision time for Depature: 20:15 Referrals: ZENIA GARZA MD (PCP/Family) Primary Care Physician Patient Instructions: Knee Pain (DC) Add. Discharge Instructions: Continue to take her home medication for the knee pain, you may add Tylenol 650 mg every 8 hours. Call for appointment with Ghassan De Souza APRN. [phone] Use crutches as needed, weightbearing as tolerated on the right. Ice to right knee 20 minutes every 2 hours while awake. Brendan wrap to right knee. Return to emergency room for new, urgent health care needs. All discharge instructions reviewed with patient and/or family. Voiced understanding. Copy Copies To 1: GHASSAN DE SOUZA AMY ARNP Jun 12, 2018 21:17
[2018-06-12 22:34] VITALS: BP 138/80
== END 2018-06-12 22:37 | disposition home or self-care (01) ==
LOC: EDUNIT# 19:53 → ER 19:54
DX: M17.11 Unilateral primary osteoarthritis, right knee (principal); I10 Essential (primary) hypertension; F17.290 Nicotine dependence, other tobacco product, uncomplicated; F17.210 Nicotine dependence, cigarettes, uncomplicated; Z88.0 Allergy status to penicillin; Z87.442 Personal history of urinary calculi; X50.1XXA Overexertion from prolonged static or awkward postures, initial encounter
CPT/HCPCS: 73562

== ENCOUNTER 2018-07-18 11:09 | Emergency (ER) | payer SELFPAY ==
[~2018-07-18] VITALS: Ht 188 cm; Wt 113.4 kg
--- NOTE | 2018-07-18 11:12 | NUR ---
Pt called; pt not in waiting room.
--- NOTE | 2018-07-18 11:29 | ED EENT ---
History of Present Illness General Stated Complaint: BOIL ON FACE Source: patient Exam Limitations: no limitations History of Present Illness Date Seen by Provider: July 18, 2018 Time Seen by Provider: 11:26 Initial Comments To ER with a one-week history of a suspected "boil" on the face. He has a tender nodule to the right cheek. He was seen by primary care and started on prednisone and Bactrim. He is still on that about half way through that prescription. Denies much improvement, still having some swelling involving the right lower eyelid, erythema and edema to the right cheek. Timing/Duration: gradual Severity: moderate Location: facial Associated Symptoms: denies symptoms Allergies and Home Medications Allergies Coded Allergies: Penicillins (Verified Allergy, Unknown, 02/22/16) Home Medications Cefdinir 300 Mg Capsule, 300 MG PO BID Prescribed by: TOYA EASON on 07/18/18 1230 Ibuprofen 800 Mg Tablet, 800 MG PO Q6H PRN for PAIN, (Reported) [Canabis Oil] , DROP PO DAILY, (Reported) Patient Home Medication List Home Medication List Reviewed: Yes Review of Systems Review of Systems Constitutional: see HPI; No chills, No fever Eyes: No Symptoms Reported; Denies Blurred Vision, Denies Decreased Acuity Ears: No Symptoms Reported Nose: no symptoms reported Mouth: no symptoms reported Throat: no symptoms reported Respiratory: no symptoms reported Cardiovascular: no symptoms reported Musculoskeletal: no symptoms reported Past Zxvpgaa-Vtulnn-Gdtsmt Hx Patient Social History Type Used: Cigarettes, Electronic/Vapor Recent Foreign Travel: No Contact w/Someone Who Travel: No Recent Hopitalizations: No Immunizations Up To Date Tetanus Booster (TDap): Unknown PED Vaccines UTD: Yes Date of Influenza Vaccine: Mar 20, 2013 Past Medical History Surgeries: Yes (left knee) Orthopedic Respiratory: No Cardiac: Yes Hypertension Neurological: No Reproductive Disorders: No Kidney Stones Gastrointestinal: No Musculoskeletal: Yes (LEFT KNEE PROBLEMS) Arthritis Endocrine: No Cancer: No Psychosocial: No Integumentary: Yes (MULTIPLE PLANTAR'S WARTS) Blood Disorders: No Family Medical History No Pertinent Family Hx Physical Exam Height, Weight, BMI Height: 6'1.00" Weight: 247lbs. oz. 112.904997zd; 35.62 BMI Method:Stated General Appearance: WD/WN, no apparent distress Eyes: right eye other (there is some edema to the right lower eyelid, some induration superior to the nodule on the cheek moving towards the medial canthus of the eye. Dacryocystitis would within the differential but I believe the nidus of this infection is the nodule to the right cheek which is just lateral to the nasolabial fold on the right, below the tear duct.); bilateral eye PERRL, bilateral eye EOMI Ears: bilateral ear auricle normal, bilateral ear canal normal, bilateral ear TM normal Neck: non-tender, full range of motion Respiratory: no respiratory distress, no accessory muscle use Skin: normal color, warm/dry Progress/Results/Core Measures Results/Orders Lab Results Laboratory Tests Test 07/18/18 12:20 Range/Units White Blood Count 12.2 H 4.3-11.0 10^3/uL Red Blood Count 4.88 4.35-5.85 10^6/uL Hemoglobin 14.2 13.3-17.7 G/DL Hematocrit 42 40-54 % Mean Corpuscular Volume 87 80-99 FL Mean Corpuscular Hemoglobin 29 25-34 PG Mean Corpuscular Hemoglobin Concent 34 32-36 G/DL Red Cell Distribution Width 14.1 10.0-14.5 % Platelet Count 411 H 130-400 10^3/uL Mean Platelet Volume 8.6 7.4-10.4 FL Neutrophils (%) (Auto) 64 42-75 % Lymphocytes (%) (Auto) 27 12-44 % Monocytes (%) (Auto) 8 0-12 % Eosinophils (%) (Auto) 2 0-10 % Basophils (%) (Auto) 0 0-10 % Neutrophils # (Auto) 7.8 1.8-7.8 X 10^3 Lymphocytes # (Auto) 3.3 1.0-4.0 X 10^3 Monocytes # (Auto) 0.9 0.0-1.0 X 10^3 Eosinophils # (Auto) 0.2 0.0-0.3 10^3/uL Basophils # (Auto) 0.0 0.0-0.1 10^3/uL My Orders Orders - TOYA EASON APRN Ed Iv/Invasive Line Start (07/18/18 11:23) Ct Maxillofacial W (07/18/18 11:23) Clindamycin 900 Mg/50 Ml Ivpb (Cleocin P (07/18/18 11:30) Cbc With Automated Diff (07/18/18 11:56) Hs C Reactive Protein (07/18/18 12:02) Ceftriaxone For Iv Use (Rocephin For I (07/18/18 12:15) Diagnostic Imaging Diagonstic Imaging: CT Comments NAME: JOSSY DE SOUZA [facility] REC#: [id number] PT STATUS: REG ER : 1980 PHYSICIAN: TOYA EASON APRN ADMIT DATE: 07/18/18/ER Draft Date of Exam:07/18/18 CT MAXILLOFACIAL W PROCEDURE: CT maxillofacial with contrast. TECHNIQUE: After intravenous administration of contrast, axial images were obtained through the face and reformatted into coronal and sagittal planes. Auto Exposure Controls were utilized during the CT exam to meet ALARA standards for radiation dose reduction. INDICATION: Growth on right cheek. COMPARISON: CT head from 05/08/2011 FINDINGS: The pterygoid plates are intact. Zygomatic arches are intact. The orbits appear intact. The globes are intact. There is a fluid level in the right maxillary sinus with mucosal thickening of the right maxillary sinus. There is focal edema and fat stranding in the right malar region, with thickening of the overlying skin. There may be a small rim-enhancing component just underlying the skin (image 67 series 8). This edema and enhancement extends into the infraorbital and right nasal soft tissues. IMPRESSION: 1. Focal subcutaneous edema and enhancement in the right malar region extending to the infraorbital and right nasal soft tissues. There may be a small rim-enhancing component underlying the skin measuring 6 mm. This is thought to be most likely inflammatory or infectious. 2. Fluid level in the right maxillary sinus, suggestive of sinusitis. Dictated on workstation # [id number] Dict: 07/18/18 1226 Trans: 07/18/18 1234 [facility] [id number] Interpreted by: MONO OROURKE MD Electronically signed by: Departure Communication (Admissions) [id number]. He's been given clindamycin 900 mg IV, Rocephin [address] report and labs. States that he cannot be admitted to the hospital. Given this I will add Omnicef to his outpatient regimen in addition to the Bactrim. Impression Primary Impression: Preseptal cellulitis of right lower eyelid Disposition: 01 HOME, SELF-CARE Condition: Stable Departure-Patient Inst. Decision time for Depature: 12:28 Referrals: [facility] (PCP) Primary Care Physician LORENZO TSAI (Family) Primary Care Physician Patient Instructions: PERIORBITAL CELLULITIS Add. Discharge Instructions: 1. Warm compresses to this area 2. Add the Omnicef antibiotic to the Bactrim antibiotic. Start this tomorrow. If you cannot afford it, take the prescription to [facility] and see if they will rewrite it for you and then felt from their own pharmacy at Little to no cost. Bactrim is fine but you need an additional antibiotic with it for this. Return to ER for any concerns. Scripts Cefdinir (Cefdinir) 300 Mg Capsule 300 MG PO BID, #14 CAP Prov: TOYA EASON APRN 07/18/18 Images Head/Face 1 - Other-See Progress Note 2 - Edema Copy Copies To 1: ROSCOE OGLESBY PETER J APRN July 18, 2018 11:29
[2018-07-18] MEDS ORDERED: CLINDAMYCIN 900 MG/50 ML IVPB 50 ML IV ONE (11:30)
[2018-07-18] MEDS ORDERED: cefTRIAXone FOR IV USE 1,000 MG in WATER (STERILE) FOR INJECTION 10 ML IV ONE (12:15)
[2018-07-18 12:29] LABS: BASOPHILS % (AUTO) 0 % (0-10); EOSINOPHILS # (AUTO) 0.2 10^3/uL (0.0-0.3); EOSINOPHILS % (AUTO) 2 % (0-10); HEMATOCRIT 42 % (40-54); HEMOGLOBIN 14.2 G/DL (13.3-17.7); LYMPHOCYTES # (AUTO) 3.3 X 10^3 (1.0-4.0); LYMPHOCYTES % (AUTO) 27 % (12-44); MEAN CORPUSCULAR HEMOGLOBIN 29 PG (25-34); MEAN CORPUSCULAR HGB CONC 34 G/DL (32-36); MEAN CORPUSCULAR VOLUME 87 FL (80-99); MEAN PLATELET VOLUME 8.6 FL (7.4-10.4); MONOCYTES # (AUTO) 0.9 X 10^3 (0.0-1.0); MONOCYTES % (AUTO) 8 % (0-12); NEUTROPHILS # (AUTO) 7.8 X 10^3 (1.8-7.8); NEUTROPHILS % (AUTO) 64 % (42-75); PLATELET COUNT 411 10^3/uL (130-400); RED CELL DISTRIBUTION WIDTH 14.1 % (10.0-14.5); WHITE BLOOD COUNT 12.2 10^3/uL (4.3-11.0)
[2018-07-18] MEDS ORDERED: CEFD300C3 PO (12:30)
--- NOTE | 2018-07-18 12:35 | Diagnostic Imaging Report ---
PROCEDURE: CT maxillofacial with contrast. TECHNIQUE: After intravenous administration of contrast, axial images were obtained through the face and reformatted into coronal and sagittal planes. Auto Exposure Controls were utilized during the CT exam to meet ALARA standards for radiation dose reduction. INDICATION: Growth on right cheek. COMPARISON: CT head from 05/08/2011 FINDINGS: The pterygoid plates are intact. Zygomatic arches are intact. The orbits appear intact. The globes are intact. There is a fluid level in the right maxillary sinus with mucosal thickening of the right maxillary sinus. There is focal edema and fat stranding in the right malar region, with thickening of the overlying skin. There may be a small rim-enhancing component just underlying the skin (image 67 series 8). This edema and enhancement extends into the infraorbital and right nasal soft tissues. IMPRESSION: 1. Focal subcutaneous edema and enhancement in the right malar region extending to the infraorbital and right nasal soft tissues. There may be a small rim-enhancing component underlying the skin measuring 6 mm. This is thought to be most likely inflammatory or infectious. 2. Fluid level in the right maxillary sinus, suggestive of sinusitis. Dictated by: Dictated on workstation # [id number]
[2018-07-18] MEDS ORDERED: HYDROcodone/APAP 5 MG/325 MG (LORTAB) TAB ONE (12:52)
[2018-07-18 13:15] VITALS: BP 129/76
== END 2018-07-18 13:15 | disposition home or self-care (01) ==
LOC: EDUNIT# 11:09 → ER 11:10
DX: H05.011 Cellulitis of right orbit (principal); I10 Essential (primary) hypertension; Z87.442 Personal history of urinary calculi; Z88.0 Allergy status to penicillin
CPT/HCPCS: 36415; 70487; 85025; 86141; 96365; 96375

== ENCOUNTER 2019-01-19 02:59 | Emergency (ER) | payer SELFPAY ==
[~2019-01-19] VITALS: Ht 185 cm; Wt 102.0 kg
[~2019-01-19 02:59] MED LIST changes: +CEFD300C3 PO
[2019-01-19] MEDS ORDERED: IBUP-1780 PO (03:14)
[2019-01-19] MEDS ORDERED: KETOROLAC 60 MG/2 ML VIAL IM ONE (03:15)
--- NOTE | 2019-01-19 03:15 | ED Lower Extremity ---
General Chief Complaint: Lower Extremity Stated Complaint: KNEE PAIN Source: patient, EMS Exam Limitations: no limitations History of Present Illness Date Seen by Provider: Jan 19, 2019 Time Seen by Provider: 02:53 Initial Comments Patient presents to ER by EMS [facility] where he is complaining of about for 5 months of right knee pain that has progressively gotten worse over the past 2 days. He's had scopes for his left knee and anterior cruciate ligament repairs we will offer his right knee. He is having some swelling of his right knee and been using ibuprofen 800 mg 3 times a day. He has not been on steroids. Allergies and Home Medications Allergies Coded Allergies: Penicillins (Verified Allergy, Unknown, 02/22/16) Home Medications Cefdinir 300 Mg Capsule, 300 MG PO BID Prescribed by: TOYA EASON on 07/18/18 1230 Ibuprofen 800 Mg Tablet, 800 MG PO Q6H PRN for PAIN, (Reported) [Canabis Oil] , DROP PO DAILY, (Reported) Patient Home Medication List Home Medication List Reviewed: Yes Review of Systems Constitutional: No chills, No diaphoresis EENTM: No ear discharge, No ear pain Respiratory: No cough, No short of breath Cardiovascular: No chest pain, No edema Gastrointestinal: No abdominal pain, No constipation All Other Systems Reviewed Negative Unless Noted: Yes Past Utggwht-Rroixe-Nhiteu Hx Patient Social History Drug of Choice: meth Smoking Status: Current Everyday Smoker Type Used: Cigarettes, Electronic/Vapor 2nd Hand Smoke Exposure: Yes Recent Foreign Travel: No Contact w/Someone Who Travel: No Recent Hopitalizations: No Immunizations Up To Date Tetanus Booster (TDap): Unknown PED Vaccines UTD: Yes Date of Influenza Vaccine: Mar 20, 2013 Past Medical History Surgeries: Yes (left knee) Orthopedic Respiratory: No Cardiac: Yes Hypertension Neurological: No Reproductive Disorders: No Kidney Stones Gastrointestinal: No Musculoskeletal: Yes (LEFT KNEE PROBLEMS) Arthritis Endocrine: No Cancer: No Psychosocial: No Integumentary: Yes (MULTIPLE PLANTAR'S WARTS) Blood Disorders: No Family Medical History No Pertinent Family Hx Physical Exam Vital Signs Capillary Refill : Height, Weight, BMI Height: 6'2.00" Weight: 250lbs. oz. 113.395949tg; 35.62 BMI Method:Stated General Appearance: WD/WN, no apparent distress HEENT: normal ENT inspection, pharynx normal Cardiovascular: normal peripheral pulses, regular rate, rhythm Respiratory: no respiratory distress, no accessory muscle use Knees: left knee non-tender, left knee normal inspection; bilateral knee normal range of motion; left knee no evidence of injury; right knee bone tenderness (left medial anterior tibial plateau), right knee swelling (mild to moderate joint effusion with a non-ballotable patella), right knee other (no pain on valgus or varus stress. Negative anterior-posterior drawer test. Full range of motion without crepitus. Does have pain on stress of the medial meniscus) Ankles: bilateral ankle non-tender, bilateral ankle normal inspection, bilateral ankle normal range of motion, bilateral ankle no evidence of injury Neurologic/Tendon: normal sensation, normal motor functions Progress/Results/Core Measures Results/Orders My Orders Orders - LOY QUIJANO Ketorolac Injection (Toradol Injection) (01/19/19 03:15) Progress Progress Note : Time: 03:11 Progress Note Patient has declined any steroids or referral to orthopedic surgery. He has NSAIDs but we'll give him some Toradol which she is agreed to do. He is not sure the last time he took ibuprofen. He has declined x-ray of his right knee. Departure Impression Primary Impression: Right anterior knee pain Additional Impression: Effusion of knee joint right Disposition: 01 HOME, SELF-CARE Condition: Stable Departure-Patient Inst. Decision time for Depature: 03:12 Referrals: [facility] [place] (PCP) Primary Care Physician LORENZO TSAI (Family) Primary Care Physician HILARY ISABEL MD Patient Instructions: Ligament Injuries in the Knee (DC) Add. Discharge Instructions: Apply compression to your knee such as an Brendan wrap or knee brace. Continue to take your ibuprofen 800 mg 3 times a day. Follow-up with your orthopedic surgeon. Ice your knee 20 minutes on every 4 hours for the next couple days. Elevate your leg above the level of your heart when possible. Reduce how much you walk on it. Tylenol 1000 mg every 8 hours as needed for pain. All discharge instructions reviewed with patient and/or family. Voiced understanding. Scripts Ibuprofen (Ibuprofen) 800 Mg Tablet 800 MG PO Q8H PRN for PAIN, #30 TAB 0 Refills Prov: LOY QUIJANO 01/19/19 LOY QUIJANO Jan 19, 2019 03:15 POS
[2019-01-19 03:20] VITALS: BP 136/98
== END 2019-01-19 03:20 | disposition home or self-care (01) ==
LOC: EDUNIT# 02:59 → ER 03:01
DX: M25.461 Effusion, right knee (principal); I10 Essential (primary) hypertension; F17.210 Nicotine dependence, cigarettes, uncomplicated; F17.290 Nicotine dependence, other tobacco product, uncomplicated; Z88.0 Allergy status to penicillin; Z87.442 Personal history of urinary calculi
CPT/HCPCS: 99284

== ENCOUNTER 2019-04-12 07:05 | Emergency (ER) | payer SELFPAY ==
[~2019-04-12] VITALS: Ht 185.4 cm; Wt 99.8 kg
[~2019-04-12 07:05] MED LIST changes: -TAMS0.4C98 PO; +TMSL.4C PO
[2019-04-12] MEDS ORDERED: KETOROLAC 60 MG/2 ML VIAL IM STA (07:35)
--- NOTE | 2019-04-12 07:42 | ED Lower Extremity ---
General Chief Complaint: Lower Extremity Stated Complaint: KNEE PAIN Nursing Triage Note: AMB TO ROOM WITHOUT PROBLEM REPORTS HAS HAD CHRONIC KNEE PAIN FOR YEARS. HERE BECAUSE [facility] NOT HELPING. REPORTS DID WALK TO HOSPITAL BECAUSE DID NOT HAVE A RIDE. Nursing Sepsis Screen: No Definite Risk Source: patient Exam Limitations: no limitations History of Present Illness Date Seen by Provider: Apr 12, 2019 Time Seen by Provider: 07:26 Initial Comments Here with chronic left knee pain that has been going on for many years. He is taking ibuprofen but states not really helping. He did walk here. He does follow with [facility] and sees Ghassan Howell as well. He has not seen them recently for this. He has pain in both knees but today it appears to be the left one. He did walk here and is walking about the room without difficulty. Onset: last week Severity: mild Pain/Injury Location: left knee Method of Injury: unknown Modifying Factors: Worse With Movement; Improves With Rest Allergies and Home Medications Allergies Coded Allergies: Penicillins (Verified Allergy, Unknown, 02/22/16) Home Medications Ibuprofen 800 Mg Tablet, 800 MG PO Q8H PRN for PAIN Prescribed by: LOY QUIJANO on 01/19/19 0314 [Canabis Oil] , DROP PO DAILY, (Reported) Patient Home Medication List Home Medication List Reviewed: Yes Review of Systems Constitutional: no symptoms reported Respiratory: no symptoms reported Cardiovascular: no symptoms reported Musculoskeletal: joint pain, joint swelling Skin: no symptoms reported Past Eltylue-Nbpsbd-Akkymd Hx Past Med/Social Hx: Reviewed Nursing Past Med/Soc Hx Patient Social History Alcohol Use: Occasionally Uses Alcohol Beverage of Choice: [place] Recreational Drug Use: No Drug of Choice: meth Type Used: Cigarettes, Electronic/Vapor 2nd Hand Smoke Exposure: Yes Recent Foreign Travel: No Contact w/Someone Who Travel: No Recent Infectious Disease Expo: No Recent Hopitalizations: No Immunizations Up To Date Tetanus Booster (TDap): Unknown PED Vaccines UTD: Yes Date of Influenza Vaccine: Mar 20, 2013 Past Medical History Surgeries: Yes (left knee) Orthopedic Respiratory: No Cardiac: Yes Hypertension Neurological: No Reproductive Disorders: No Genitourinary: No Kidney Stones Gastrointestinal: No Musculoskeletal: Yes (LEFT KNEE PROBLEMS) Arthritis Endocrine: No HEENT: No Cancer: No Psychosocial: No Integumentary: Yes (MULTIPLE PLANTAR'S WARTS) Blood Disorders: No Family Medical History Reviewed Nursing Family Hx No Pertinent Family Hx Physical Exam Vital Signs Vital Signs - First Documented 04/12/19 07:06 Temp 36.3 Pulse 100 Resp 18 B/P (MAP) 139/88 (105) Pulse Ox 99 O2 Delivery Room Air Capillary Refill : Less Than 3 Seconds Height, Weight, BMI Height: 6'2.00" Weight: 250lbs. oz. 113.524212ho; 29.00 BMI Method:Stated General Appearance: WD/WN, no apparent distress Cardiovascular: regular rate, rhythm, no murmur Respiratory: lungs clear, normal breath sounds Knees: left knee pain, left knee soft tissue tenderness, left knee swelling (very mild), left knee other (negative laxity and negative anterior or posterior drawer) Progress/Results/Core Measures Results/Orders My Orders Orders - DAVID SANCHEZ MD Toradol 60 Mg Im (04/12/19 07:35) Vital Signs/I&O 04/12/19 07:06 Temp 36.3 Pulse 100 Resp 18 B/P (MAP) 139/88 (105) Pulse Ox 99 O2 Delivery Room Air Blood Pressure Mean: 105 Progress Progress Note : Progress Note Seen and evaluated. Toradol 60 mg IM. No indication for x-ray currently is there is no recent trauma and he is walking about without difficulty. I did recommend that he follow up with his provider. He could consider Mobic as an option instead of ibuprofen but needs to talk to his provider about that. Discharged home with return precautions. Patient verbalize understanding instructions and agreement with plan. Departure Impression Primary Impression: Chronic pain of left knee Disposition: 01 HOME, SELF-CARE Condition: Stable Departure-Patient Inst. Decision time for Depature: 07:40 Referrals: [facility] [place]) Primary Care Physician LORENZO TSAI (Family) Primary Care Physician Patient Instructions: Knee Pain Add. Discharge Instructions: All discharge instructions reviewed with patient and/or family. Voiced understanding. You may continue your ibuprofen every 8 hours as prescribed. You may also take Tylenol/acetaminophen 1000 mg every 8 hours as needed for pain. You may consider a different nonsteroidal anti-inflammatory such as Mobic (meloxicam) but you need to talk with your provider about that. Return for worse pain, weakness, numbness or other concerns as needed. DAVID SANCHEZ MD Apr 12, 2019 07:42
[2019-04-12 07:53] VITALS: BP 139/88
== END 2019-04-12 07:52 | disposition home or self-care (01) ==
LOC: EDUNIT# 07:05 → ER 07:06
DX: G89.29 Other chronic pain (principal); M25.562 Pain in left knee; I10 Essential (primary) hypertension; Z87.442 Personal history of urinary calculi; Z88.0 Allergy status to penicillin; Z77.22 Contact with and (suspected) exposure to environmental tobacco smoke (acute) (chronic)
CPT/HCPCS: 99284

== ENCOUNTER 2019-07-04 22:47 | Emergency (ER) | payer SELFPAY ==
[~2019-07-04] VITALS: Ht 185 cm; Wt 86.0 kg
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
[2019-07-04] MEDS ORDERED: MELO15TA14 PO (23:44)
[2019-07-04] MEDS ORDERED: KETOROLAC 60 MG/2 ML VIAL IM ONE (23:45)
[2019-07-05 00:16] VITALS: BP 96/79
--- NOTE | 2019-07-05 06:54 | Diagnostic Imaging Report ---
INDICATION: Pain after injury EXAMINATION: Right hip dated 07/04/2019 2 views of the right hip. FINDINGS: There is no evidence for an acute fracture or dislocation. The joint spaces are well maintained. There is no significant soft tissue swelling. IMPRESSION: No acute process. Dictated by: Dictated on workstation # [id number]
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
== END 2019-07-05 00:18 | disposition home or self-care (01) ==
LOC: EDUNIT# 22:47 → ER 22:48
DX: M25.551 Pain in right hip (principal); R40.2142 Coma scale, eyes open, spontaneous, at arrival to emergency department; R40.2252 Coma scale, best verbal response, oriented, at arrival to emergency department; R40.2362 Coma scale, best motor response, obeys commands, at arrival to emergency department; F17.210 Nicotine dependence, cigarettes, uncomplicated; F17.290 Nicotine dependence, other tobacco product, uncomplicated; Z88.0 Allergy status to penicillin; Y00.XXXA Assault by blunt object, initial encounter; Y92.019 Unspecified place in single-family (private) house as the place of occurrence of the external cause
CPT/HCPCS: 73502

== ENCOUNTER 2019-07-20 05:19 | Emergency (ER) | payer SELFPAY ==
[~2019-07-20] VITALS: Ht 185 cm; Wt 93.0 kg
[~2019-07-20 05:19] MED LIST changes: +MELO15TA14 PO
[2019-07-20 05:22] VITALS: BP 136/92
--- NOTE | 2019-07-20 05:29 | NUR ---
Ice pack provided to pt for knee injury.
[2019-07-20] MEDS ORDERED: TETANUS,DIPTH,PERTUSS P/F (BOOSTRIX) 0.5 ML VIAL IM ONE (05:30)
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
[2019-07-20] MEDS ORDERED: KETOROLAC 60 MG/2 ML VIAL IM STA (05:53)
[2019-07-20] MEDS ORDERED: MELO15TA14 PO (06:00)
[2019-07-20] MEDS ORDERED: CRUT1EAC7 MC (06:14)
--- NOTE | 2019-07-20 06:15 | Diagnostic Imaging Report ---
INDICATION: Swelling and pain. No acute injury reported. FINDINGS: There has been ACL repair. Interference screws appear in good position without loosening within the femoral condyle and the tibial plateau. Surgical button along the distal femoral shaft appears in good position. There is advanced arthritic disease with loss of joint space both medially and laterally. Hypertrophic changes are present. The patellofemoral joint appears in good alignment with mild degenerative change. IMPRESSION: Postoperative changes with advanced arthritic disease noted throughout the knee. Dictated by: Dictated on workstation # [id number]
== END 2019-07-20 06:20 | disposition home or self-care (01) ==
LOC: EDUNIT# 05:19 → ER 05:21
DX: M25.562 Pain in left knee (principal); M25.462 Effusion, left knee; F17.210 Nicotine dependence, cigarettes, uncomplicated; F17.290 Nicotine dependence, other tobacco product, uncomplicated; Z23 Encounter for immunization; Z88.0 Allergy status to penicillin; V18.4XXA Pedal cycle driver injured in noncollision transport accident in traffic accident, initial encounter
CPT/HCPCS: 73562; 90715

== ENCOUNTER 2019-10-02 06:33 | Emergency (ER) | payer SELFPAY ==
[~2019-10-02 06:33] MED LIST changes: +CRUT1EAC7 MC
--- NOTE | 2019-10-02 07:05 | NUR ---
WENT TO WAITING ROOM TO SEE BRING PT TO ROOM. PT NOT IN WAITING ROOM.
== END 2019-10-02 07:05 | disposition left against medical advice (07) ==
LOC: EDUNIT# 06:33 → ER 06:35
DX: M54.2 Cervicalgia (principal)

== ENCOUNTER 2019-11-30 11:15 | Emergency (ER) | payer SELFPAY | END 2019-11-30 11:30 | disposition other institution (70) | LOC: EDUNIT# 11:15 → ER 11:18 | DX: M25.561 Pain in right knee (principal) ==

== ENCOUNTER 2019-12-05 18:11 | Inpatient (IN) | payer SELFPAY ==
[2019-12-05] MEDS ORDERED: LACTATED RINGERS 1,000 ML IV ONE (18:14)
[2019-12-05] MEDS ORDERED: TETANUS,DIPTH,PERTUSS P/F (BOOSTRIX) 0.5 ML VIAL IM ONE (18:15)
[2019-12-05 18:28] LABS: BASOPHILS % (AUTO) 0 % (0-10); EOSINOPHILS # (AUTO) 0.2 10^3/uL (0.0-0.3); EOSINOPHILS % (AUTO) 2 % (0-10); HEMATOCRIT 43 % (40-54); HEMOGLOBIN 14.7 G/DL (13.3-17.7); LYMPHOCYTES # (AUTO) 3.3 X 10^3 (1.0-4.0); LYMPHOCYTES % (AUTO) 32 % (12-44); MEAN CORPUSCULAR HEMOGLOBIN 31 PG (25-34); MEAN CORPUSCULAR HGB CONC 34 G/DL (32-36); MEAN CORPUSCULAR VOLUME 92 FL (80-99); MEAN PLATELET VOLUME 8.6 FL (7.4-10.4); MONOCYTES # (AUTO) 0.7 X 10^3 (0.0-1.0); MONOCYTES % (AUTO) 7 % (0-12); NEUTROPHILS # (AUTO) 6.3 X 10^3 (1.8-7.8); NEUTROPHILS % (AUTO) 60 % (42-75); PLATELET COUNT 367 10^3/uL (130-400); WHITE BLOOD COUNT 10.5 10^3/uL (4.3-11.0)
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
[2019-12-05] MEDS ORDERED: NS 100 ML (IVPB) BAG IV ONE (18:30)
[2019-12-05] MEDS ORDERED: HOLD METFORMIN - RECEIVED CONTRAST 20 ML VIAL IV SCH (18:30)
[2019-12-05] MEDS ORDERED: ceFAZolin INJECTION 1,000 MG in WATER (STERILE) FOR INJECTION 10 ML IV ONE (18:30)
[2019-12-05] MEDS ORDERED: IOHEXOL 350 MG/ML 100 ML (OMNIPAQUE 350) VIAL IV ONE (18:30)
[2019-12-05 18:39] LABS: PROTHROMBIN TIME PATIENT 13.4 SEC (12.2-14.7)
[2019-12-05 18:40] LABS: ALBUMIN 4.5 GM/DL (3.2-4.5); CHLORIDE 107 MMOL/L (98-107); POTASSIUM 3.4 MMOL/L (3.6-5.0); SODIUM 140 MMOL/L (135-145)
[2019-12-05 18:42] LABS: CALCIUM 8.9 MG/DL (8.5-10.1)
[2019-12-05 18:43] LABS: GLUCOSE 137 MG/DL (70-105); TOTAL PROTEIN 7.4 GM/DL (6.4-8.2)
[2019-12-05 18:44] LABS: CARBON DIOXIDE 21 MMOL/L (21-32)
[2019-12-05 18:45] LABS: BILIRUBIN,TOTAL 0.2 MG/DL (0.1-1.0)
[2019-12-05 18:47] LABS: ALKALINE PHOSPHATASE 57 U/L (40-136); CREATININE SERUM 0.88 MG/DL (0.60-1.30); GFR ESTIMATED > 60
[2019-12-05 18:48] LABS: BUN/CREATININE RATIO 10
[2019-12-05 18:49] LABS: SALICYLATE < 5.0 MG/DL (5.0-20.0)
[2019-12-05 18:50] LABS: ALANINE AMINOTRANSFERASE 29 U/L (0-55); MAGNESIUM 2.2 MG/DL (1.6-2.4)
[2019-12-05 18:51] LABS: CREATINE KINASE 209 U/L (30-200); LIPASE 86 U/L (8-78)
[2019-12-05 18:58] LABS: ACETAMINOPHEN < 10 UG/ML (10-30); CREATINE KINASE MB 3.7 NG/ML (<6.6)
[2019-12-05 19:03] LABS: BILIRUBIN,URINE NEGATIVE (NEGATIVE); CLARITY,URINE CLEAR; COLOR,URINE YELLOW; GLUCOSE, URINE (UA) NEGATIVE (NEGATIVE); KETONES,URINE NEGATIVE (NEGATIVE); LEUKOCYTE ESTERASE ,URINE NEGATIVE (NEGATIVE); NITRITE,URINE NEGATIVE (NEGATIVE); PROTEIN,URINE NEGATIVE (NEGATIVE)
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
[2019-12-05] MEDS ORDERED: LORazepam INJ 2 MG/ML (ATIVAN) VIAL IVP ONE ×2 (19:15→20:45)
--- NOTE | 2019-12-05 19:20 | NUR ---
Pt to CT
[2019-12-05 19:34] LABS: RBC,URINE RARE /HPF
[2019-12-05 19:35] LABS: AMORPHOUS SEDIMENT,UR RARE AMOR URATES /LPF; BACTERIA,URINE NEGATIVE /HPF
[2019-12-05] MEDS ORDERED: KETAMINE HCL 100 MG/ML 5 ML VIAL ONE (19:35)
[2019-12-05 19:40] LABS: AMPHETAMINE SCREEN, URINE NEGATIVE (NEGATIVE); BARBITURATE SCREEN URINE NEGATIVE (NEGATIVE); BENZODIAZEPINES SCREEN URINE NEGATIVE (NEGATIVE); CANNABINOID SCREEN, URINE POSITIVE (NEGATIVE); COCAINE SCREEN URINE NEGATIVE (NEGATIVE); METHADONE STAT NEGATIVE (NEGATIVE); METHAMPHETAMINE SCREEN URINE S NEGATIVE (NEGATIVE); OPIATE SCREEN URINE NEGATIVE (NEGATIVE); OXYCODONE STAT NEGATIVE (NEGATIVE); PROPOXYPHENE STAT NEGATIVE (NEGATIVE); TRICYCLIC ANTIDEPRESSANTS SCRE NEGATIVE (NEGATIVE)
[2019-12-05] MEDS ORDERED: KETAMINE/NaCl 50 MG/5 ML SYRINGE (ED ONLY) IV ONE (19:45)
--- NOTE | 2019-12-05 20:09 | NUR ---
Pt back from CT
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
[2019-12-05 21:14] VITALS: BP 145/101
[2019-12-05] MEDS ORDERED: D5 1/2 NS 1000 ML IV SOLUTION 0 ML IV ONE (21:21)
[2019-12-05] MEDS ORDERED: D5 1/2 NS W/KCL 20 MEQ/L 1,000 ML IV ONE (21:23)
[2019-12-05 21:30] VITALS: BP 132/96
[2019-12-05 21:45] VITALS: BP 115/76
[2019-12-05 22:00] VITALS: BP 108/87
[2019-12-05] MEDS ORDERED: fentaNYL INJECTION 100 MCG/2 ML AMP ONE (22:16)
[2019-12-05] MEDS ORDERED: ANTACID SUSP 30 ML UDC (MYLANTA) PO PRN (23:15)
[2019-12-05] MEDS ORDERED: SENNA W/DOCUSATE (SENOKOT S) TABLET PO PRN (23:15)
[2019-12-05] MEDS ORDERED: LORazepam INJ 2 MG/ML (ATIVAN) VIAL IVP PRN (23:15)
[2019-12-05] MEDS ORDERED: D5 1/2 NS 1000 ML IV SOLUTION 1,000 ML IV PRN (23:15)
[2019-12-05] MEDS ORDERED: LORazepam INJ 2 MG/ML (ATIVAN) VIAL IM/IV PRN (23:15)
[2019-12-05] MEDS ORDERED: LORazepam 1 MG (ATIVAN) TAB PO PRN (23:15)
[2019-12-05] MEDS ORDERED: ONDANSETRON 4 MG (ZOFRAN) ORAL DISSOLVE TAB SL PRN (23:15)
[2019-12-05] MEDS ORDERED: LORazepam INJ 2 MG/ML (ATIVAN) VIAL IV PRN (23:15)
[2019-12-05] MEDS ORDERED: ONDANSETRON 4 MG/2 ML (SDV) Z0FRAN IV PRN (23:15)
[2019-12-05 23:50] VITALS: BP 121/85
[2019-12-05] MEDS: fentaNYL INJECTION 100 MCG/2 ML AMP IV PRN (23:52)
[2019-12-05] MEDS: D5 1/2 NS W/KCL 20 MEQ/L 1,000 ML IV SCH (23:52)
[2019-12-06] VITALS (13 sets, daily range): BP systolic 108–154; BP diastolic 65–102
[2019-12-06] MEDS: ceFAZolin 1,000 MG/SWFI 10 ML IV PUSH IV SCH ×4 (01:05→08:29)
[2019-12-06] MEDS: fentaNYL INJECTION 100 MCG/2 ML AMP IV PRN ×5 (02:21→11:28)
[2019-12-06 03:49] LABS: BASOPHILS % (AUTO) 0 % (0-10); EOSINOPHILS # (AUTO) 0.1 10^3/uL (0.0-0.3); EOSINOPHILS % (AUTO) 1 % (0-10); HEMATOCRIT 42 % (40-54); HEMOGLOBIN 14.1 G/DL (13.3-17.7); LYMPHOCYTES # (AUTO) 2.7 X 10^3 (1.0-4.0); LYMPHOCYTES % (AUTO) 20 % (12-44); MEAN CORPUSCULAR HEMOGLOBIN 31 PG (25-34); MEAN CORPUSCULAR HGB CONC 34 G/DL (32-36); MEAN CORPUSCULAR VOLUME 93 FL (80-99); MEAN PLATELET VOLUME 8.8 FL (7.4-10.4); MONOCYTES % (AUTO) 7 % (0-12); NEUTROPHILS # (AUTO) 9.7 X 10^3 (1.8-7.8); NEUTROPHILS % (AUTO) 73 % (42-75); PLATELET COUNT 342 10^3/uL (130-400); WHITE BLOOD COUNT 13.4 10^3/uL (4.3-11.0)
[2019-12-06 04:00] LABS: ALBUMIN 4.1 GM/DL (3.2-4.5); CHLORIDE 107 MMOL/L (98-107); POTASSIUM 3.6 MMOL/L (3.6-5.0); SODIUM 140 MMOL/L (135-145)
[2019-12-06 04:01] LABS: CALCIUM 8.4 MG/DL (8.5-10.1)
[2019-12-06 04:03] LABS: GLUCOSE 121 MG/DL (70-105); TOTAL PROTEIN 6.8 GM/DL (6.4-8.2)
[2019-12-06 04:04] LABS: BILIRUBIN,TOTAL 0.3 MG/DL (0.1-1.0); CARBON DIOXIDE 22 MMOL/L (21-32)
[2019-12-06 04:06] LABS: ALKALINE PHOSPHATASE 58 U/L (40-136); CREATININE SERUM 0.75 MG/DL (0.60-1.30); GFR ESTIMATED > 60; PHOSPHORUS 2.9 MG/DL (2.3-4.7)
[2019-12-06 04:07] LABS: BUN/CREATININE RATIO 9
[2019-12-06 04:09] LABS: ALANINE AMINOTRANSFERASE 25 U/L (0-55); MAGNESIUM 1.9 MG/DL (1.6-2.4)
--- NOTE | 2019-12-06 05:12 | NUR ---
ORIENTED PATIENT ON THE SITUATION THAT PRECIPITATED HIS STAY HERE IN THE ICU. PATIENT DOES NOT RECALL ANY OF WHAT HAPPENED. ALSO SPOKE WITH PATIENT ABOUT HIS ETOH USE AND HE STATES HE WISHES TO DETOX. PATIENT IS PLEASANT AT THIS TIME.
[2019-12-06] MEDS: D5 1/2 NS W/KCL 20 MEQ/L 1,000 ML IV SCH ×2 (06:11→11:28)
--- NOTE | 2019-12-06 06:46 | Pulmonary Consultation ---
History of Present Illness History of Present Illness Date Seen by Provider: Dec 06, 2019 Time Seen by Provider: 06:42 Date of Admission Allergies and Home Medications Allergies Coded Allergies: Penicillins (Verified Allergy, Unknown, 02/22/16) Home Medications Ibuprofen 800 Mg Tablet, 800 MG PO Q8H PRN for PAIN Prescribed by: LOY QUIJANO on 01/19/19 0314 Meloxicam 15 Mg Tablet, 15 MG PO DAILY Prescribed by: SOFI BOWSER on 07/04/19 2344 Meloxicam 15 Mg Tablet, 15 MG PO DAILY Prescribed by: SOFI BOWSER on 07/20/19 0600 [Canabis Oil] , DROP PO DAILY, (Reported) Past Grvlshd-Cmlmcy-Ultaan Hx Past Med/Social Hx: Reviewed and Corrections made Patient Social History Alcohol Use: Regular Use Number of Drinks Today: BB Alcohol Beverage of Choice: Beer, [place] Recreational Drug Use: Yes Drug of Choice: "EVERYTHING--YOU NAME IT" --EXTENSIVE USE, METH, THC, OTHERS- DENIES IV USE Smoking Status: Current Everyday Smoker Type Used: Cigarettes, Electronic/Vapor 2nd Hand Smoke Exposure: Yes Recent Foreign Travel: No Contact w/Someone Who Travel: No Recent Infectious Disease Expo: No Recent Hopitalizations: No Immunizations Up To Date Tetanus Booster (TDap): Unknown PED Vaccines UTD: Yes Date of Influenza Vaccine: Mar 20, 2013 Past Medical History Surgeries: Yes (LEFT KNEE SURGERY X 4--ACL REPAIRS/RECONSTRUCTION) Orthopedic Respiratory: No Cardiac: Yes Hypertension Neurological: No Reproductive Disorders: No Genitourinary: Yes Kidney Stones Gastrointestinal: No Musculoskeletal: Yes (LEFT KNEE PROBLEMS--SURGERY X 4) Arthritis Endocrine: No HEENT: No Cancer: No Psychosocial: Yes (POLYSUBSTANCE ABUSE) Integumentary: Yes (MULTIPLE PLANTAR'S WARTS) Blood Disorders: No Family Medical History No Pertinent Family Hx SOCIAL HISTORY: -EXTENSIVE HISTORY OF REGULAR ALCOHOL USE/HEAVY DAILY USE -EXTENSIVE HISTORY OF DRUG ABUSE--"EVERYTHING" "YOU NAME IT" --METH, THC, OTHERS--DENIES IV USE -SMOKES 1 PPD CIGARETTES, PLUS VAPES -PT HOMELESS OF 07/2019 SURGICAL HISTORY: -LEFT KNEE SURGERY X 4--ACL REPAIRS/RECONSTRUCTION Sepsis Event Evaluation Height, Weight, BMI Height: 6'2.00" Weight: 250lbs. oz. 113.395889ku; 27.00 BMI Method:Stated Exam Exam Vital Signs Date Time Temp Pulse Resp B/P (MAP) Pulse Ox O2 Delivery O2 Flow Rate FiO2 12/06/19 04:00 Room Air 12/06/19 04:00 109 21 132/87 (102) 98 Room Air 12/06/19 03:00 105 26 137/87 (104) Room Air 12/06/19 02:00 101 28 146/91 (109) 96 Room Air 12/06/19 01:13 96 19 141/89 (106) 97 Room Air 12/06/19 01:00 97 12/06/19 00:00 Room Air 12/06/19 00:00 105 16 128/91 (103) 99 Room Air 12/05/19 23:50 90 16 121/85 (97) 99 Room Air 12/05/19 22:00 102 13 108/87 (94) 94 Room Air 12/05/19 21:45 101 23 115/76 (89) 97 Room Air 12/05/19 21:30 98 15 132/96 (108) 91 Room Air 12/05/19 21:19 101 12/05/19 21:15 Room Air 12/05/19 21:14 95 145/101 (116) 91 Room Air 12/05/19 20:50 104 14 140/98 100 Nasal Cannula 3.00 12/05/19 18:18 36.0 88 14 118/70 (86) 98 Room Air I & O 12/06/19 07:00 Intake Total 1000 ml Output Total 975 ml Balance 25 ml Height & Weight Height: 6'2.00" Weight: 250lbs. oz. 113.457114ww; 27.00 BMI Method:Stated General Appearance: WD/WN, Other (PT IN CERVICAL COLLAR, AWAKE, LOOKING AROUND AND MAKES EYE CONTACT. THE ONLY QUESTION THAT PT ANSWERS IS HIS FIRST NAME AND THIS IS HEAVILY SLURRED. STRONG ODOR OF ETOH. DIRTY, MALODOROUS, UNKEMPT) Neck: Other (IN CERVICAL COLLAR; TRACHEA MIDLINE) Respiratory: Normal Breath Sounds, No Accessory Muscle Use, No Respiratory Distress, Other (NO CREPITANCE OR SUB Q AIR. NO APPARENT TENDERNESS TO PALPATION) Cardiovascular: Regular Rate, Rhythm, No Edema, No JVD, No Murmur, Normal Peripheral Pulses Capillary Refill: Less Than 3 Seconds Extremity: Normal Capillary Refill, No Pedal Edema, Other (NO APPARENT TENDERNESS, NO DEFORMITY OR OBVIOUS INJURY TO EXTREMITIES. DOES MOVE ALL EXTREMITIES) Neurologic/Psychiatric: Alert, Other (KNOWS NAME ONLY. OTHERWISE DOES NOT ANSWER ANY QUESTIONS. DOES FOLLOW A COUPLE OF SIMPLE COMMANDS, SUCH SIT UP AND LAY DOWN. SPEECH VERY SLURRED. PT IS CONFUSED. MOVES ALL EXTREMITIES AND GROSS SENSORY IS INTACT .) Skin: Normal Color, Warm/Dry, Tattoos/Piercings (EXTENSIVE TATTOOS) Results Lab Laboratory Tests 12/05/19 18:13 12/06/19 02:55 Assessment/Plan Assessment/Plan s/p fall with resulting open mandibular fracture -Dr. Rivera planning on taking pt to OR today -DPT given in ED Alcohol intoxication in active alcoholic -CIMD protocol -Monitor Marijuana use -Education ELINA ROSA DO Dec 06, 2019 06:46
--- NOTE | 2019-12-06 08:47 | Diagnostic Imaging Report ---
INDICATION: Post trauma. COMPARISON: 12/05/2019. FINDINGS: The heart and mediastinal silhouette are normal in appearance. The lungs are clear. There is no pneumothorax or pleural fluid. IMPRESSION: Negative chest. Dictated by: Dictated on workstation # [id number]
[2019-12-06] MEDS ORDERED: PANTOPRAZOLE 40 MG (PROTONIX) VIAL IV SCH (09:00)
[2019-12-06] MEDS ORDERED: THIAMINE INJECTION 100 MG, FOLIC ACID INJECTION 1 MG, MAGNESIUM SULFATE 2 GM, VITAMIN M... IV SCH ×5 (09:00)
--- NOTE | 2019-12-06 09:42 | History & Physical-Hospitalist ---
History of Present Illness HPI/Chief Complaint CC: Facial trauma during intoxication HPI: This is a 38yoWM who was found outside [address] after facial traum a and sustaining an open mandible fracture with severe alcohol intoxication. Could not clear his C-spine until he was more alert. CT scan of the cervical spine was without abnormality. Dr. Rivera has been consulted for fracture management. Source: patient, RN/MD Exam Limitations: no limitations Date Seen 12/06/19 Time Seen by a Provider: 09:00 Attending Physician Sergio Martinez DO [facility] Referring Physician Date of Admission Dec 05, 2019 at 19:20 Home Medications & Allergies Home Medications Reviewed patient Home Medication Reconciliation performed by pharmacy medication reconciliations photovoltaic technician and/or nursing. Patients Allergies have been reviewed. Allergies Allergies Coded Allergies Penicillins (Verified Allergy, Unknown, 02/22/16) Past Vlqwwir-Uefvwv-Azyfpf Hx Past Med/Social Hx: Reviewed Nursing Past Med/Soc Hx, Reviewed and Corrections made Patient Social History Marrital Status: single Employed/Student: unemployed, retired Alcohol Use: Denies Use Alcohol Beverage of Choice: Beer, [place] Recreational Drug Use: Yes Drug of Choice: "EVERYTHING--YOU NAME IT" --EXTENSIVE USE, METH, THC, OTHERS- DENIES IV USE Smoking Status: Never a Smoker Type Used: Cigarettes, Electronic/Vapor 2nd Hand Smoke Exposure: Yes Recent Foreign Travel: No Contact w/other who traveled: No Recent Hopitalizations: No Recent Infectious Disease Expo: No Immunizations Up To Date Tetanus Booster (TDap): Unknown Pediatric: Yes Date of Influenza Vaccine: Mar 20, 2013 Past Medical History Surgeries: Orthopedic Cardiac: Hypertension Reproductive: No Genitourinary: Kidney Stones Musculoskeletal: Arthritis History of Blood Disorders: No Family History No Pertinent Family Hx SOCIAL HISTORY: -EXTENSIVE HISTORY OF REGULAR ALCOHOL USE/HEAVY DAILY USE -EXTENSIVE HISTORY OF DRUG ABUSE--"EVERYTHING" "YOU NAME IT" --METH, THC, OTHERS--DENIES IV USE -SMOKES 1 PPD CIGARETTES, PLUS VAPES -PT HOMELESS OF 07/2019 SURGICAL HISTORY: -LEFT KNEE SURGERY X 4--ACL REPAIRS/RECONSTRUCTION Review of Systems Constitutional: see HPI EENTM: mouth pain, throat pain Physical Exam Physical Exam Vital Signs Vital Signs - First Documented 12/05/19 12/05/19 18:18 20:50 Temp 36.0 Pulse 88 Resp 14 B/P (MAP) 118/70 (86) Pulse Ox 98 O2 Delivery Room Air O2 Flow Rate 3.00 Capillary Refill : Less Than 3 Seconds Height, Weight, BMI Height: 6'2.00" Weight: 250lbs. oz. 113.208601hs; 27.00 BMI Method:Stated General Appearance: No Apparent Distress, Chronically ill Eyes: Right Eye Normal Inspection, Right Eye PERRL HEENT: PERRL/EOMI, Normal ENT Inspection, Pharynx Normal, Moist Mucous Membranes Neck: Full Range of Motion, Normal Inspection, Non Tender Respiratory: Chest Non Tender, Lungs Clear, Normal Breath Sounds, No Accessory Muscle Use, No Respiratory Distress Cardiovascular: Regular Rate, Rhythm, No Edema, No Gallop, No JVD, No Murmur, Normal Peripheral Pulses Gastrointestinal: Normal Bowel Sounds, No Organomegaly, No Pulsatile Mass, Non Tender, Soft Back: Normal Inspection, No CVA Tenderness, No Vertebral Tenderness Extremity: Normal Capillary Refill, Normal Inspection, Normal Range of Motion, Non Tender, No Calf Tenderness, No Pedal Edema Neurologic/Psychiatric: Alert, Oriented x3, No Motor/Sensory Deficits, Normal Mood/Affect Skin: Normal Color, Warm/Dry Lymphatic: No Adenopathy Results Results/Procedures Labs Laboratory Tests 12/05/19 18:13 12/06/19 02:55 Patient resulted labs reviewed. Assessment/Plan Admission Diagnosis Assessment: Open mandible fracture Severe alcohol intoxication Plan: Alcohol withdraw protocol Pain control Appreciate Dr. Rivera Admission Status: Inpatient Order (span 2 midnights) Reason for Inpatient Admission: mandible fx open type Diagnosis/Problems Diagnosis/Problems (1) Traumatic injury of head with altered mental status Status: Acute (2) Open mandibular fracture Status: Acute (3) Alcohol intoxication in active alcoholic Status: Acute Clinical Quality Measures DVT/VTE Risk/Contraindication: Risk Factor Score Per Nursin RFS Level Per Nursing on Admit: 1=Low/No VTE PPX MELANIE SADLER DO Dec 06, 2019 09:42
--- NOTE | 2019-12-06 10:33 | Consultation - Surgery ---
[facility] MED STUDENT 12/06/19 1033: History of Present Illness History of Present Illness Patient Consulted On(cordell/time) 12/06/19 10:27 Date Seen by Provider: Dec 06, 2019 Time Seen by Provider: 09:30 History of Present Illness surgery consult re: mandibular fracture pt was sitting up in bed. pt stated that he must have fallen and hit his jaw. pt does not remember falling, said the last thing he remembers is going to the store and heading back to his friends house. pt is having pain with swallowing and opening his mouth wide. pain was described as achy, pain radiates to his left orbit. pain is rated as 8 out of 10. pt stated that the pain is better when he doesn't talk or open his mouth very wide. Allergies and Home Medications Allergies Coded Allergies: Penicillins (Verified Allergy, Unknown, 02/22/16) Home Medications Ibuprofen 800 Mg Tablet, 800 MG PO Q8H PRN for PAIN Prescribed by: LOY QUIJANO on 01/19/19 0314 Meloxicam 15 Mg Tablet, 15 MG PO DAILY Prescribed by: SOFI BOWSER on 07/04/19 2344 Meloxicam 15 Mg Tablet, 15 MG PO DAILY Prescribed by: SOFI BOWSER on 07/20/19 0600 [Canabis Oil] , DROP PO DAILY, (Reported) Past Gkdwqgv-Dqtxtj-Ztjjwc Hx Patient Social History Alcohol Use: Regular Use Number of Drinks Today: BB Recreational Drug Use: Yes Drug of Choice: pot Smoking Status: Current Everyday Smoker Type Used: Cigarettes, Electronic/Vapor 2nd Hand Smoke Exposure: Yes Immunizations Up To Date Tetanus Booster (TDap): Unknown PED Vaccines UTD: Yes Date of Influenza Vaccine: Mar 20, 2013 Surgeries History of Surgeries: Yes (LEFT KNEE SURGERY X 4--ACL REPAIRS/RECONSTRUCTION) Surgeries: Orthopedic (L knee ACL and reconstruction ) Respiratory History of Respiratory Disorde: No Cardiovascular History of Cardiac Disorders: Yes Cardiac Disorders: Hypertension Neurological History of Neurological Disord: No Reproductive System Hx Reproductive Disorders: No Genitourinary History of Genitourinary Disor: No Gastrointestinal History of Gastrointestinal Di: No Musculoskeletal History of Musculoskeletal Dis: No Endocrine History of Endocrine Disorders: No HEENT History of HEENT Disorders: No Cancer History of Cancer: No Psychosocial History of Psychiatric Problem: Yes (POLYSUBSTANCE ABUSE) Integumentary History of Skin or Integumenta: No Blood Transfusions History of Blood Disorders: No Family Medical History Significant Family History: Diabetes Review of Systems-General Constitutional: No chills, No diaphoresis, No fever EENTM: mouth pain; No hearing loss, No blurred vision Respiratory: No cough, No short of breath Cardiovascular: No chest pain, No palpitations Gastrointestinal: No abdominal pain, No constipation, No diarrhea, No nausea, No vomiting Genitourinary: No frequency, No incontinence Physical Exam-General Problems Physical Exam Vital Signs Vital Signs - First Documented 12/05/19 12/05/19 18:18 20:50 Temp 36.0 Pulse 88 Resp 14 B/P (MAP) 118/70 (86) Pulse Ox 98 O2 Delivery Room Air O2 Flow Rate 3.00 Capillary Refill : Less Than 3 Seconds General Appearance: WD/WN, mild distress Eyes: Bilateral Eye Normal Inspection, Bilateral Eye PERRL, Bilateral Eye EOMI HEENT: PERRL/EOMI; No scleral icterus (R), No scleral icterus (L) Neck: non-tender; No lymphadenopathy (R), No lymphadenopathy (L) Respiratory: chest non-tender, lungs clear, normal breath sounds, no respiratory distress, no accessory muscle use Cardiovascular: regular rate, rhythm, no murmur Peripheral Pulses: 2+ Carotid (R), 2+ Carotid (L), 2+ Dorsalis Pedis (R), 2+ Left Dors-Pedis (L), 2+ Radial Pulses (R), 2+ Radial Pulses (L) Gastrointestinal: normal bowel sounds, non tender 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 as tested, alert, normal mood/affect, oriented x 3 Skin: normal color, warm/dry; No diaphoresis Lymphatic: no adenopathy Data Review Labs Laboratory Tests 12/05/19 18:13: White Blood Count 10.5, Red Blood Count 4.72, Hemoglobin 14.7, Hematocrit 43, Mean Corpuscular Volume 92, Mean Corpuscular Hemoglobin 31, Mean Corpuscular Hemoglobin Concent 34, Red Cell Distribution Width 13.1, Platelet Count 367, Mean Platelet Volume 8.6, Neutrophils (%) (Auto) 60, Lymphocytes (%) (Auto) 32, Monocytes (%) (Auto) 7, Eosinophils (%) (Auto) 2, Basophils (%) (Auto) 0, Neutrophils # (Auto) 6.3, Lymphocytes # (Auto) 3.3, Monocytes # (Auto) 0.7, Eosinophils # (Auto) 0.2, Basophils # (Auto) 0.0, Prothrombin Time 13.4, INR Comment 1.0, Activated Partial Thromboplast Time 27, Sodium Level 140, Potassium Level 3.4L, Chloride Level 107, Carbon Dioxide Level 21, Anion Gap 12, Blood Urea Nitrogen 9, Creatinine 0.88, Estimat Glomerular Filtration Rate > 60, BU N/Creatinine Ratio 10, Glucose Level 137H, Calcium Level 8.9, Corrected Calcium 8.5, Magnesium Level 2.2, Total Bilirubin 0.2, Aspartate Amino Transf (AST/SGOT) 59H, Alanine Aminotransferase (ALT/SGPT) 29, Alkaline Phosphatase 57, Total Creatine Kinase 209H, Creatine Kinase MB 3.7, Myoglobin 120.5H, Total Protein 7.4, Albumin 4.5, Lipase 86H, Salicylates Level < 5.0L, Acetaminophen Level < 10L, Serum Alcohol 330*H 12/05/19 18:55: Urine Color YELLOW, Urine Clarity CLEAR, Urine pH 6.0, Urine Specific [place] <=1.005, Urine Protein NEGATIVE, Urine Glucose (UA) NEGATIVE, Urine Ketones NEGATIVE, Urine Nitrite NEGATIVE, Urine Bilirubin NEGATIVE, Urine Urobilinogen 0.2, Urine Leukocyte Esterase NEGATIVE, Urine RBC (Auto) TRACE-L, Urine RBC RARE, Urine WBC NONE, Urine Crystals PRESENTH, Urine Amorphous Sediment RARE ADELINA URATESH, Urine Bacteria NEGATIVE, Urine Casts NONE, Urine Mucus NEGATIVE, Urine Culture Indicated NO, Urine Opiates Screen NEGATIVE, Urine Oxycodone Screen NEGATIVE, Urine Methadone Screen NEGATIVE, Urine Propoxyphene Screen NEGATIVE, Urine Barbiturates Screen NEGATIVE, Ur Tricyclic Antidepressants Screen NEGATIVE, Urine Phencyclidine Screen NEGATIVE, Urine Amphetamines Screen NEGATIVE, Urine Methamphetamines Screen NEGATIVE, Urine Benzodiazepines Screen NEGATIVE, Urine Cocaine Screen NEGATIVE, Urine Cannabinoids Screen POSITIVEH 12/06/19 02:55: White Blood Count 13.4H, Red Blood Count 4.52, Hemoglobin 14.1, Hematocrit 42, Mean Corpuscular Volume 93, Mean Corpuscular Hemoglobin 31, Mean Corpuscular Hemoglobin Concent 34, Red Cell Distribution Width 13.3, Platelet Count 342, Mean Platelet Volume 8.8, Neutrophils (%) (Auto) 73, Lymphocytes (%) (Auto) 20, Monocytes (%) (Auto) 7, Eosinophils (%) (Auto) 1, Basophils (%) (Auto) 0, Neutrophils # (Auto) 9.7H, Lymphocytes # (Auto) 2.7, Monocytes # (Auto) 1.0, Eosinophils # (Auto) 0.1, Basophils # (Auto) 0.0, Sodium Level 140, Potassium Level 3.6, Chloride Level 107, Carbon Dioxide Level 22, Anion Gap 11, Blood Urea Nitrogen 7, Creatinine 0.75, Estimat Glomerular Filtration Rate > 60, BUN/Creatinine Ratio 9, Glucose Level 121H, Calcium Level 8.4L, Corrected Calcium 8.3L, Magnesium Level 1.9, Total Bilirubin 0.3, Aspartate Amino Transf (AST/SGOT) 54H, Alanine Aminotransferase (ALT/SGPT) 25, Alkaline Phosphatase 58, Total Protein 6.8, Albumin 4.1, Phosphorus Level 2.9 12/06/19 09:25: Serum Alcohol < 10 Assessment/Plan Assessment/Plan Assessment/Plan left mandibular ramus fracture left mandibular body fracture Clinical Quality Measures DVT/VTE Risk/Contraindication: Risk Factor Score Per Nursin RFS Level Per Nursing on Admit: 1=Low/No VTE PPX GERRYCHRISTIANO FERNANDES Izabella DO 12/06/19 1611: History of Present Illness History of Present Illness Time Seen by Provider: 12:20 History of Present Illness Pt seen and examined, laying in bed but easily arousable. He states his pain is a little better. Allergies and Home Medications Allergies Coded Allergies: Penicillins (Verified Allergy, Unknown, 02/22/16) Home Medications Ibuprofen 800 Mg Tablet, 800 MG PO Q8H PRN for PAIN Prescribed by: LOY QUIJANO on 01/19/19 0314 Meloxicam 15 Mg Tablet, 15 MG PO DAILY Prescribed by: SOFI BOWSER on 07/04/19 2344 Meloxicam 15 Mg Tablet, 15 MG PO DAILY Prescribed by: SOFI BOWSER on 07/20/19 0600 [Canabis Oil] , DROP PO DAILY, (Reported) Patient Home Medication List Home Medication List Reviewed: Yes Past Pkfevmg-Bfcrta-Itjvzp Hx Family Medical History Significant Family History: Diabetes Review of Systems-General Constitutional: No chills, No diaphoresis, No fever EENTM: mouth pain; No hearing loss, No blurred vision Respiratory: No cough, No short of breath Cardiovascular: No chest pain, No palpitations Gastrointestinal: No abdominal pain, No constipation, No diarrhea Physical Exam-General Problems Physical Exam General Appearance: WD/WN, no apparent distress Eyes: Bilateral Eye PERRL, Bilateral Eye EOMI HEENT: No scleral icterus (R), No scleral icterus (L) Neck: non-tender, supple Respiratory: lungs clear, normal breath sounds, no respiratory distress, no accessory muscle use Cardiovascular: regular rate, rhythm, no murmur Gastrointestinal: non tender, soft, no organomegaly Neurologic/Psychiatric: alert, normal mood/affect, oriented x 3 Skin: normal color, warm/dry Data Review Radiology CT HEAD/FACE/CERVICAL WO PROCEDURE: CT head, face, and cervical spine without contrast. TECHNIQUE: Multiple contiguous axial images were obtained through the head, neck, and facial bones without the use of intravenous contrast. Sagittal and coronal reformations through the cervical spine and facial bones were also performed. Auto Exposure Controls were utilized during the CT exam to meet ALARA standards for radiation dose reduction. DATE: December 05, 2019. COMPARISON: CT maxillofacial area July 18, 2018. CT head May 08, 2011. INDICATION: 38-year-old male, trauma. Head, face, and neck pain. FINDINGS: The ventricles and cerebral spinal fluid spaces are of normal size and configuration for the patient's age. There is no mass effect or midline shift. There is no acute intracranial hemorrhage. There is no abnormal extra-axial fluid collection. There is an oblique mildly displaced fracture of the left mandibular ramus. The primary proximal fracture fragment is displaced laterally by 7 mm as measured on coronal image 55. There is a comminuted mildly displaced fracture of the mandible just to the left of midline at its left most aspect and extends to the region of the right mandibular angle. The fracture is extending between the first and second mandibular teeth to the left of midline best illustrated on axial image 29 and adjacent sequential images. The mandibular condyles are normally positioned relative to their expected temporomandibular articulations. There is no identified nasal bone fracture. The bony nasal septum is slightly to the right of midline. There is no additional identified acute maxillofacial bone fracture. The paranasal sinuses are well-aerated. The mastoid air cells and middle ears are well aerated. There are areas of ossification adjacent to the external auditory canals bilaterally consistent with benign chronic etiology. The globes are intact. There is no retro-orbital hematoma. There is no facet joint subluxation or dislocation. There is no asymmetric widening of the cervical disc spaces. There is no prominent prevertebral soft tissue swelling. 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 There is no identified acute fracture of the cervical spine. The cervical disc heights are well preserved. CT is limited for assessment of disc pathology as well as additional nonbony causes of pathology in the spinal canal. IMPRESSION: 1. Mildly displaced fracture of the left mandibular ramus. 2. Comminuted displaced fracture of the left mandibular body extending to the right mandibular angle, as detailed above. 3. No additional identified acute maxillofacial bone fracture. 4. No acute intracranial abnormality. 5. No acute abnormality of the cervical spine. Dictated by: Dictated on workstation # [id number] Dict: 12/05/[id number] Trans: 12/05/191909 [facility] [id number] Interpreted by: JOSSY WEST MD Electronically signed by: JOSSY WEST MD 12/05/191909 Assessment/Plan Assessment/Plan Assessment/Plan Open Mandibular Fx ETOH Intoxication Pt was admitted because his EtOH was .33 and he was going to get consult by OMFS. Pt left AMA. Supervisory-Addendum Brief Verification & Attestation Participated in pt care: history, MDM, physical Personally performed: exam, history, MDM Care discussed with: Medical Student Procedures: n/a Verification and Attestation of Medical Student E/M Service A medical student performed and documented this service. I then reviewed and verified all information documented by the medical student and made modifications to such information, when appropriate. I personally performed a physical exam, medical decision making and then discussed any differences between the notes and made revisions as necessary to create one note. Christiano Johnston , 12/06/19 , 16:14 M[facility] MED STUDENT Dec 06, 2019 10:33 CHRISTIANO JOHNSTON DO Dec 06, 2019 16:11
--- NOTE | 2019-12-06 14:00 | NUR ---
THIS NURSE NOTIFIED DR SADLER AND DR PORTILLO PT IS LEAVING AMA. PT EXPLAINED THE RISKS OF LEAVING AND THE BENEFITS OF STAYING. PT STATED UNDERSTANDING. IV TAKEN OUT AND PT WALKED TO HOSPITAL ENTRANCE WITH BELONGINGS.
--- NOTE | 2019-12-06 14:39 | NUR ---
CM/SS attempted to visit patient for social service consult. Patient was not in room. This sw asked rail express clerk if patient was in surgery. She stated that patient chose to Leave AMA. Therefore, this sw was not able to speak with patient.
--- NOTE | 2019-12-06 15:00 | NUR ---
DR JOHNSTON NOTIFIED PT LEFT AMA.
--- NOTE | 2019-12-06 15:34 | NUR ---
PT LEFT AMA BEFORE I COULD COMPLETE THE MED REC
--- NOTE | 2019-12-06 20:44 | Discharge Summary ---
Discharge Summary Hospital Course Was the Problem List Reviewed?: Yes Problems/Dx: (1) Traumatic injury of head with altered mental status Status: Acute (2) Open mandibular fracture Status: Acute (3) Alcohol intoxication in active alcoholic Status: Acute Hospital Course Date of Admission: Dec 05, 2019 at 19:20 Admission Diagnosis : Family Physician/Provider: Jared Larose Date of Discharge: 12/06/19 Discharge Diagnosis: open mandible fracture, etohism Hospital Course: short course after admitted to ICU due to severe etoh intoxication. Patient monitored closely. Patient left AMA. Labs and Pending Lab Test: Laboratory Tests 12/06/19 02:55: White Blood Count 13.4H, Red Blood Count 4.52, Hemoglobin 14.1, Hematocrit 42, Mean Corpuscular Volume 93, Mean Corpuscular Hemoglobin 31, Mean Corpuscular Hemoglobin Concent 34, Red Cell Distribution Width 13.3, Platelet Count 342, Mean Platelet Volume 8.8, Neutrophils (%) (Auto) 73, Lymphocytes (%) (Auto) 20, Monocytes (%) (Auto) 7, Eosinophils (%) (Auto) 1, Basophils (%) (Auto) 0, Neutrophils # (Auto) 9.7H, Lymphocytes # (Auto) 2.7, Monocytes # (Auto) 1.0, Eosinophils # (Auto) 0.1, Basophils # (Auto) 0.0, Sodium Level 140, Potassium Level 3.6, Chloride Level 107, Carbon Dioxide Level 22, Anion Gap 11, Blood Urea Nitrogen 7, Creatinine 0.75, Estimat Glomerular Filtration Rate > 60, BUN/Crea tinine Ratio 9, Glucose Level 121H, Calcium Level 8.4L, Corrected Calcium 8.3L, Phosphorus Level 2.9, Magnesium Level 1.9, Total Bilirubin 0.3, Aspartate Amino Transf (AST/SGOT) 54H, Alanine Aminotransferase (ALT/SGPT) 25, Alkaline Phosphatase 58, Total Protein 6.8, Albumin 4.1 12/06/19 09:25: Serum Alcohol < 10 Home Meds Active Crutch 1 Each Each Each Mobic (Meloxicam) 15 Mg Tablet 15 Mg PO DAILY Mobic (Meloxicam) 15 Mg Tablet 15 Mg PO DAILY Ibuprofen 800 Mg Tablet 800 Mg PO Q8H PRN Reported [Canabis Oil] Drop PO DAILY Assessment/Pt Instructions left ama Discharge Planning: <30 minutes discharge planning Discharge Instructions Discharge Diet: No Restrictions Activity as Tolerated: Yes Discharge Physical Examination Vital Signs Vital Signs Date Time Temp Pulse Resp B/P (MAP) Pulse Ox O2 Delivery O2 Flow Rate FiO2 12/06/19 12:42 76 12/06/19 12:00 99 Room Air 12/06/19 12:00 15 125/69 (87) 12/06/19 08:00 37.0 12/05/19 20:50 3.00 General Appearance: No Apparent Distress, WD/WN Allergies: Coded Allergies: Penicillins (Verified Allergy, Unknown, 02/22/16) Discharge Summary Date of Admission Dec 05, 2019 at 19:20 Date of Discharge Dec 06, 2019 at 14:10 Admission Diagnosis Assessment: Open mandible fracture Severe alcohol intoxication Plan: Alcohol withdraw protocol Pain control Appreciate Dr. Rivera Discharge Diagnosis (1) Traumatic injury of head with altered mental status Status: Acute (2) Open mandibular fracture Status: Acute (3) Alcohol intoxication in active alcoholic Status: Acute Clinical Quality Measures DVT/VTE Risk/Contraindication: Risk Factor Score Per Nursin RFS Level Per Nursing on Admit: 1=Low/No VTE PPX MELANIE SADLER DO Dec 06, 2019 20:44
[2019-12-07] MEDS ORDERED: ACHD5005 PO ×2 (09:40→09:59)
== END 2019-12-06 14:10 | disposition left against medical advice (07) | DRG 159 ==
LOC: EDUNIT# 18:11 → ER 18:13 → ICU 19:20
PROVIDERS: ADMIT Surgery; ATTEND Surgery
DX: S02.642B Fracture of ramus of left mandible, initial encounter for open fracture (principal); S02.602B Fracture of unspecified part of body of left mandible, initial encounter for open fracture; F10.229 Alcohol dependence with intoxication, unspecified; F12.90 Cannabis use, unspecified, uncomplicated; R41.82 Altered mental status, unspecified; F17.210 Nicotine dependence, cigarettes, uncomplicated; I10 Essential (primary) hypertension; Y90.1 Blood alcohol level of 20-39 mg/100 ml; X58.XXXA Exposure to other specified factors, initial encounter; Z87.442 Personal history of urinary calculi; Z59.0 Homelessness; Z23 Encounter for immunization
CPT/HCPCS: 36415; 70450; 70486; 71045; 71260; 72125; 72128; 72131; 72170; 74177; 80053; 80306; 80320; 80329; 81000; 82550; 82553; 83690; 83735; 83874; 84100; 85025; 85610; 85730; 87081; 90715; 93005; 93041

== ENCOUNTER 2019-12-07 08:52 | Emergency (ER) | payer SELFPAY ==
[~2019-12-07] VITALS: Ht 172.2 cm; Wt 81.8 kg
[2019-12-07 09:08] VITALS: BP 144/87
--- NOTE | 2019-12-07 09:16 | ED EENT ---
History of Present Illness General Chief Complaint: General Problems/Pain Stated Complaint: BROKEN JAW Nursing Triage Note: AMB TO ED REPORTS WAS ADMITTED TO HOSPITAL. LEFT AMA YESTERDAY ABOUT 1400 BECAUSE WAS TIRED OF WAITING ON DR TO COME SEE HIM. HERE FOR PAIN MEDS. Source: patient Exam Limitations: no limitations History of Present Illness Date Seen by Provider: Dec 07, 2019 Time Seen by Provider: 09:06 Initial Comments Patient arrives ER by private conveyance from home with chief complaint that he is looking to get his jaw wired up after having fractured it. He was admitted yesterday and left AMA because they were very busy and he did not feel like waiting any longer to see the surgeon. Patient to ER 2 days ago after being found with alcohol on board sitting on steps blood all over his face and mandible fracture at the left ramus, mildly displaced and comminuted displaced fracture of the left mandibular body extending to the right mandibular angle. He had altered mental status due to his alcohol delirium as well as he was given Ativan and ketamine in the ER for agitation/delirium. He was then admitted to trauma surgeon and Dr. Portillo, oral facial maxillary surgeon said he would take him to surgery after he had sobered up. Patient elected to leave yesterday AGAINST MEDICAL ADVICE. He admits to daily alcohol use and has used every recreational drugs he can get his hands on. No recollection of how he broke his jaw. Allergies and Home Medications Allergies Coded Allergies: Penicillins (Verified Allergy, Unknown, 02/22/16) Home Medications Ibuprofen 800 Mg Tablet, 800 MG PO Q8H PRN for PAIN Prescribed by: LOY QUIJANO on 01/19/19 0314 Meloxicam 15 Mg Tablet, 15 MG PO DAILY Prescribed by: SOFI BOWSER on 07/04/19 2344 Meloxicam 15 Mg Tablet, 15 MG PO DAILY Prescribed by: SOFI BOWSER on 07/20/19 0600 [Canabis Oil] , DROP PO DAILY, (Reported) Patient Home Medication List Home Medication List Reviewed: Yes Review of Systems Review of Systems Constitutional: No chills, No fever, No malaise Eyes: Denies Blindness, Denies Blurred Vision Ears: Denies Dizziness, Denies Pain Nose: denies clots, denies congestion Mouth: denies clots; pain Throat: denies pain, denies swelling Respiratory: No cough, No phlegm Cardiovascular: No chest pain, No edema Gastrointestinal: No abdominal pain, No nausea, No vomiting Musculoskeletal: No back pain, No joint pain Skin: No pruritus, No rash Neurological: Denies Anxiety, Denies Depressed All Other Systems Reviewed Negative Unless Noted: Yes Past Jpfuvpe-Zbousz-Zamget Hx Patient Social History Alcohol Use: Occasionally Uses Number of Drinks Today: BB Alcohol Beverage of Choice: Beer, [place] Recreational Drug Use: No Drug of Choice: pot Smoking Status: Current Everyday Smoker Type Used: Cigarettes, Electronic/Vapor 2nd Hand Smoke Exposure: Yes Recent Foreign Travel: No Contact w/Someone Who Travel: No Recent Infectious Disease Expo: No Recent Hopitalizations: No Immunizations Up To Date Tetanus Booster (TDap): Unknown PED Vaccines UTD: Yes Date of Influenza Vaccine: Mar 20, 2013 Past Medical History Surgeries: Yes (LEFT KNEE SURGERY X 4--ACL REPAIRS/RECONSTRUCTION) Orthopedic Respiratory: No Cardiac: Yes Hypertension Neurological: No Reproductive Disorders: No Genitourinary: No Kidney Stones Gastrointestinal: No Musculoskeletal: No Arthritis Endocrine: No HEENT: No Cancer: No Psychosocial: Yes (POLYSUBSTANCE ABUSE) Integumentary: No Blood Disorders: No Family Medical History Diabetes SOCIAL HISTORY: -EXTENSIVE HISTORY OF REGULAR ALCOHOL USE/HEAVY DAILY USE -EXTENSIVE HISTORY OF DRUG ABUSE--"EVERYTHING" "YOU NAME IT" --METH, THC, OTHERS--DENIES IV USE -SMOKES 1 PPD CIGARETTES, PLUS VAPES -PT HOMELESS OF 07/2019 SURGICAL HISTORY: -LEFT KNEE SURGERY X 4--ACL REPAIRS/RECONSTRUCTION Physical Exam Vital Signs Vital Signs - First Documented 12/07/19 08:55 Temp 35.8 Pulse 88 Resp 18 B/P (MAP) 141/111 (121) Pulse Ox 98 O2 Delivery Room Air Height, Weight, BMI Height: 6'2.00" Weight: 250lbs. oz. 113.746950ig; 27.00 BMI Method:Stated General Appearance: WD/WN, mild distress Eyes: bilateral eye normal inspection, bilateral eye PERRL, bilateral eye EOMI Ears: bilateral ear auricle normal, bilateral ear canal normal Nose: normal inspection; No active bleeding Mouth/Throat: other (mandible swollen, tender mildly deformed) Neck: full range of motion, normal inspection Cardiovascular: normal peripheral pulses, regular rate, rhythm Respiratory: no respiratory distress, no accessory muscle use Neurologic/Psychiatric: alert, normal mood/affect, oriented x 3 Skin: normal color, warm/dry Progress/Results/Core Measures Results/Orders Vital Signs/I&O 12/07/19 12/07/19 08:55 09:08 Temp 35.8 Pulse 88 Resp 18 B/P (MAP) 141/111 (121) 144/87 (106) Pulse Ox 98 O2 Delivery Room Air Blood Pressure Mean: 106 Progress Progress Note : Time: 09:24 Progress Note Discussed the case with Dr. Portillo, oral facial maxillary surgeon and he says follow-up in the clinic today at 1400 and he will set up a plan. Plan to give him a prescription for some hydrocodone for his discomfort. Departure Impression Primary Impression: Mandible fracture Qualified Codes: S02.642B - Fracture of ramus of left mandible, initial encounter for open fracture Disposition: 01 HOME, SELF-CARE Condition: Stable Departure-Patient Inst. Decision time for Depature: 09:38 Referrals: [facility] [place] ([place]) Primary Care Physician LORENZO TSAI (Family) Primary Care Physician MOE PORTILLO DDAndres Patient Instructions: Jaw Fracture (DC) Add. Discharge Instructions: Hydrocodone one tablet every 6 hours as needed for pain. Follow-up with Dr. Portillo, surgeon at 2:00 this afternoon. All discharge instructions reviewed with patient and/or family. Voiced understanding. LOY QUIJANO Dec 07, 2019 09:16
[2019-12-07] MEDS ORDERED: ACHD5005 PO ×2 (09:40→09:59)
[2019-12-08] MEDS ORDERED: DULO20CA PO (14:22)
== END 2019-12-07 09:45 | disposition home or self-care (01) ==
LOC: EDUNIT# 08:52 → ER 08:53
DX: S02.642D Fracture of ramus of left mandible, subsequent encounter for fracture with routine healing (principal); I10 Essential (primary) hypertension; F17.210 Nicotine dependence, cigarettes, uncomplicated; F17.290 Nicotine dependence, other tobacco product, uncomplicated; Z88.0 Allergy status to penicillin; X58.XXXD Exposure to other specified factors, subsequent encounter
CPT/HCPCS: 99281

== ENCOUNTER 2019-12-08 12:52 | Day surgery (SDC) | payer SELFPAY ==
[~2019-12-08] VITALS: Ht 182.9 cm; Wt 90.9 kg
[2019-12-08] VITALS (7 sets, daily range): BP systolic 129–162; BP diastolic 81–118
[2019-12-08] MEDS ORDERED: ROPIVACAINE 5MG/ML 30ML VIAL ONE (13:15)
[2019-12-08] MEDS ORDERED: LIDOCAINE/EPI 2% 1:100,00 (XYLOCAINE) 20 ML VIAL ONE (13:15)
[2019-12-08] MEDS ORDERED: LACTATED RINGERS 1,000 ML IV PRN ×2 (13:19→13:21)
[2019-12-08] MEDS ORDERED: LIDOCAINE PF 2% 5 ML (XYLOCAINE) VIAL ONE (13:29)
[2019-12-08] MEDS ORDERED: ROCURONIUM 10 MG/ML 5 ML SYRINGE IV ONE (13:29)
[2019-12-08] MEDS ORDERED: MIDAZOLAM 2 MG/2 ML (VERSED) VIAL ONE (13:29)
[2019-12-08] MEDS ORDERED: SEVOFLURANE (ULTANE) 15 ML INHAL SOLN ONE ×6 (13:29→16:55)
[2019-12-08] MEDS ORDERED: ONDANSETRON 4 MG/2 ML (SDV) Z0FRAN ONE ×2 (13:29→16:35)
[2019-12-08] MEDS ORDERED: fentaNYL INJECTION 100 MCG/2 ML AMP ONE (13:29)
[2019-12-08] MEDS ORDERED: proPOfol 200 MG/20 ML (DIPRIVAN) VIAL IV ONE (13:29)
[2019-12-08] MEDS ORDERED: DULO20CA PO (14:22)
[2019-12-08] MEDS: ceFAZolin 2 GM IV Premixed 50 ML IV ONE ×2 (15:34→16:07)
[2019-12-08] MEDS ORDERED: PHENYLEPHRINE 0.5% NASAL SPR (NEO-SYNEPHRINE) REG ONE (15:35)
[2019-12-08] MEDS ORDERED: morphine INJ 10 MG/ML 1ML (SYR OR VIAL) ONE (16:36)
[2019-12-08] MEDS ORDERED: MEPERIDINE (DEMEROL) INJ 50 MG/ML IVP ONE (17:30)
[2019-12-08] MEDS ORDERED: ONDANSETRON 4 MG/2 ML (SDV) Z0FRAN IVP PRN (17:30)
[2019-12-08] MEDS ORDERED: morphine INJ 10 MG/ML 1ML (SYR OR VIAL) IVP ONE (17:30)
[2019-12-08] MEDS ORDERED: PROMETHAZINE INJ 25 MG/ML (PHENERGAN) AMP IVP ONE (17:30)
[2019-12-08] MEDS ORDERED: HYDROmorphone 2 MG/ML VIAL (DILAUDID) IV ONE (17:30)
[2019-12-08] MEDS: LACTATED RINGERS 1,000 ML IV SCH ×2 (18:44→23:34)
[2019-12-08] MEDS: HYDROmorphone 2 MG/ML VIAL (DILAUDID) IV PRN ×2 (19:15→23:33)
[2019-12-08] MEDS: ceFAZolin INJECTION 1,000 MG in WATER (STERILE) FOR INJECTION 10 ML IV SCH (19:53)
[2019-12-08] MEDS: HYDROcodone/APAP 7.5MG-325 MG/15 ML (LORTAB) UDC PO PRN (21:16)
[2019-12-09] VITALS: BP 138/87
[2019-12-09] MEDS: HYDROcodone/APAP 7.5MG-325 MG/15 ML (LORTAB) UDC PO PRN ×2 (02:37→07:49)
[2019-12-09 04:00] VITALS: BP 132/88
[2019-12-09] MEDS: HYDROmorphone 2 MG/ML VIAL (DILAUDID) IV PRN (04:40)
[2019-12-09] MEDS ORDERED: FLU QUADRIvalent (3YOA+) 60 mcg/0.5 ml 2020-21 (AFLURIA) IM ONE (06:15)
[2019-12-09] MEDS: ceFAZolin INJECTION 1,000 MG in WATER (STERILE) FOR INJECTION 10 ML IV SCH (07:49)
[2019-12-09 08:00] VITALS: BP 143/103
--- NOTE | 2019-12-09 12:53 | Anesthesia-General Post-Op ---
General Patient Condition Mental Status/LOC: Same as Preop Cardiovascular: Satisfactory Nausea/Vomiting: Absent Respiratory: Satisfactory Pain: Controlled Complications: Absent Post Op Complications Complications None Follow Up Care/Instructions Patient Instructions None needed. Anesthesia/Patient Condition Patient Condition Patient was seen this morning in post-op rounds and was doing well, no complaints, stable vital signs, no apparent adverse anesthesia problems. He is currently discharged to home. OJ GOLDSTEIN DO Dec 09, 2019 12:53
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
== END 2019-12-09 09:58 | disposition home or self-care (01) ==
LOC: SDC 12:52 → 4TH 18:10 → SDC 12-09 09:58
PROVIDERS: ATTEND Specialist
DX: S02.66XB Fracture of symphysis of mandible, initial encounter for open fracture (principal); I10 Essential (primary) hypertension; M06.9 Rheumatoid arthritis, unspecified; F17.210 Nicotine dependence, cigarettes, uncomplicated; Z79.899 Other long term (current) drug therapy; Z20.828 Contact with and (suspected) exposure to other viral communicable diseases
CPT/HCPCS: 21462; 87081; U0002; 87635; 90686

== ENCOUNTER 2019-12-19 07:52 | Emergency (ER) | payer SELFPAY ==
[~2019-12-19] VITALS: Ht 182.8 cm; Wt 90.7 kg
[~2019-12-19 07:52] MED LIST changes: +DULO20CA PO
[2019-12-19 08:00] VITALS: BP 151/90
--- NOTE | 2019-12-19 09:03 | ED EENT ---
History of Present Illness General Chief Complaint: Dental Problems/Pain Stated Complaint: TOOTH/JAW PAIN Source: patient Exam Limitations: no limitations (TOYA VALENTE MED STUDENT) History of Present Illness Date Seen by Provider: Dec 19, 2019 Time Seen by Provider: 08:40 Initial Comments Krish Howell is a 39 yo M with history of mandibular symphysis repair with Dr. Rivera on 12/08/19 following a fracture who complains of continued dental pain. The patient reports his pain was controlled while in the hospital but has not been well controlled since discharge home. He was taking Vicoprofen 750mg Q4-6 hours with some pain improvement but states he ran out yesterday. The patient has also been taking 800mg ibuprofen up to 3 times per day. Pain is currently 4/10, described as sharp and worse with hot or cold foods but unaffected by talking, radiating to the left TMJ. The patient reports 3 days of increased green mucous production without fever, chills, cough, SOB, loss of taste, or loss of smell. Denies drainage or discharge from surgical site. The pt states he has followup planned with his surgeon tomorrow. (TOYA VALENTE MED STUDENT) Allergies and Home Medications Allergies Coded Allergies: No Known Drug Allergies (Unverified , 12/08/19) Home Medications Hydrocodone/Acetaminophen 1 Each Tablet, 1 EACH PO Q6H PRN for PAIN-BREAKTHROUGH Prescribed by: LOY QUIJANO on 12/07/19 0959 Ibuprofen 800 Mg Tablet, 800 MG PO Q8H PRN for PAIN Prescribed by: LOY QUIJANO on 01/19/19 0314 Meloxicam 15 Mg Tablet, 15 MG PO DAILY Prescribed by: SOFI BOWSER on 07/04/19 2344 Meloxicam 15 Mg Tablet, 15 MG PO DAILY Prescribed by: SOFI BOWSER on 07/20/19 0600 Patient Home Medication List Home Medication List Reviewed: Yes (AMELIA CENTENO MD) Review of Systems Review of Systems Constitutional: No chills, No fever Ears: Pain (stated ear pain but pointed to left TMJ); Denies Bloody Discharge, Denies Clear Discharge, Denies Purulent Discharge Nose: congestion; denies epistaxis, denies pain Mouth: pain; denies purulent discharge, denies serosanguinous discharge Throat: denies pain, denies neck stiffness Respiratory: No cough, No short of breath Cardiovascular: No chest pain (TOYA VALENTE STUDENT) Past Isfuegk-Bftbyl-Cwkxkj Hx Patient Social History Alcohol Use: Occasionally Uses Number of Drinks Today: BB Alcohol Beverage of Choice: Beer, [place] Recreational Drug Use: Yes Drug of Choice: pot Smoking Status: Current Everyday Smoker Type Used: Cigarettes, Electronic/Vapor 2nd Hand Smoke Exposure: Yes Recent Foreign Travel: No Contact w/Someone Who Travel: No Recent Hopitalizations: Yes (JAW SURG) Physical Abuse: No Sexual Abuse: No (TOYA VALENTE STUDENT) Immunizations Up To Date Tetanus Booster (TDap): Unknown PED Vaccines UTD: Yes Date of Influenza Vaccine: Mar 20, 2013 (TOYA VALENTE STUDENT) Past Medical History Surgeries: Yes (LEFT KNEE SURGERY X 4--ACL REPAIRS/RECONSTRUCTION) Orthopedic Respiratory: No Currently Using CPAP: No Currently Using BIPAP: No Cardiac: Yes Hypertension Neurological: No Reproductive Disorders: No Genitourinary: No Kidney Stones Gastrointestinal: No Musculoskeletal: No Arthritis Endocrine: No HEENT: No Cancer: No Psychosocial: Yes (POLYSUBSTANCE ABUSE) Integumentary: No Blood Disorders: No (TOYA VALENTE STUDENT) Family Medical History Diabetes SOCIAL HISTORY: -EXTENSIVE HISTORY OF REGULAR ALCOHOL USE/HEAVY DAILY USE -EXTENSIVE HISTORY OF DRUG ABUSE--"EVERYTHING" "YOU NAME IT" --METH, THC, OTHERS--DENIES IV USE -SMOKES 1 PPD CIGARETTES, PLUS VAPES -PT HOMELESS OF 07/2019 SURGICAL HISTORY: -LEFT KNEE SURGERY X 4--ACL REPAIRS/RECONSTRUCTION (TOYA VALENTE STUDENT) Physical Exam Vital Signs Vital Signs - First Documented 12/19/19 08:00 Temp 36.0 Pulse 85 Resp 20 B/P (MAP) 151/90 (110) Pulse Ox 100 O2 Delivery Room Air (AMELIA CENTENO MD) Height, Weight, BMI Height: 6'2.00" Weight: 250lbs. oz. 113.419191hx; 27.17 BMI Method:Stated General Appearance: WD/WN, no apparent distress Mouth/Throat: other (surgical scar in the mandibular mucosa inferior to the space between teeth 25 and 26 appears well approximated without exudate. ) Neck: non-tender, supple; No lymphadenopathy (R), No lymphadenopathy (L) Cardiovascular: regular rate, rhythm, no gallop, no JVD, no murmur Respiratory: lungs clear, normal breath sounds, no respiratory distress, no accessory muscle use Neurologic/Psychiatric: alert, normal mood/affect, oriented x 3 Skin: normal color, warm/dry (TOYA VALENTE MED STUDENT) Progress/Results/Core Measures Results/Orders Vital Signs/I&O 12/19/19 08:00 Temp 36.0 Pulse 85 Resp 20 B/P (MAP) 151/90 (110) Pulse Ox 100 O2 Delivery Room Air (AMELIA CENTENO MD) Progress Progress Note : Time: 09:17 Progress Note post-surgical patient for mandibular fracture Continued dental pain new onset sinus congestion Plan rapid covid test due to congestion symptoms pt states he has followup appointment 2pm tomorrow - will confirm with Dr. Rivera's office will confirm strength and dose of post-operative opiate prescription instruct to never take OTC acetaminophen with Vicoprofen plan for analgesia here and script for 3 Vicoprofen to last until that appoi ntment low suspicion for wound infection due to lack of drainage, absence of signs/symptoms of infection, and non-escalating nature of pain do not think further workup is necessary at this time (TOYA VALENTE STUDENT) Departure Impression Primary Impression: Post-op pain Disposition: 07 AGAINST MEDICAL ADVICE Condition: Against Medical Advice Departure-Patient Inst. Ref[place]: [facility] [place]) Primary Care Physician LORENZO TSAI (Family) Primary Care Physician I reviewed patient's chart and received verbal report from Ephraim Valente, MS3 who interviewed and examined the patient. Unfortunately, the patient was not willing to wait to be seen by the M.D. and left AGAINST MEDICAL ADVICE. I have reviewed MS 3 documentation. I agree with the portions of documentation that can be validated by review of chart, but I was unable to examine or interview the patient to verify the remaining portions of documentation. (AMELIA CENTENO MD) TOYA VALENTE MED STUDENT Dec 19, 2019 09:03 AMELIA CENTENO MD Dec 19, 2019 18:34
== END 2019-12-19 09:34 | disposition left against medical advice (07) ==
LOC: EDUNIT# 07:52 → ER 07:53
DX: G89.18 Other acute postprocedural pain (principal); F17.210 Nicotine dependence, cigarettes, uncomplicated; F17.290 Nicotine dependence, other tobacco product, uncomplicated; Z83.3 Family history of diabetes mellitus; Z20.828 Contact with and (suspected) exposure to other viral communicable diseases
CPT/HCPCS: 99282

== ENCOUNTER 2019-12-28 21:29 | Emergency (ER) | payer SELFPAY ==
[~2019-12-28] VITALS: Ht 182.9 cm; Wt 90.7 kg
[2019-12-28 21:33] VITALS: BP 131/72
[2019-12-28] MEDS ORDERED: RX-TRAMADOL 50 MG (ULTRAM) TAB PPK#4 PO STA (22:02)
[2019-12-28] MEDS ORDERED: RX-CEPHALEXIN (KEFLEX) 250 MG CAP PPK#4 PO STA (22:02)
[2019-12-28] MEDS ORDERED: CEPH500T PO (22:06)
[2019-12-28] MEDS ORDERED: TRM50T PO (22:06)
--- NOTE | 2019-12-28 22:08 | ED EENT ---
History of Present Illness General Chief Complaint: Dental Problems/Pain Stated Complaint: SPITTING UP PHLEM Nursing Triage Note: PT AMBULATE TO ROOM FT3 VIA EMS WITH C/O JAW PAIN X1 WEEK. PT REPORTS BROKEN JAW X3 WEEKS AGO AND LEFT AMA FROM THIS HOSP BECAUSE THERE WERE COVID19 POS PATIENTS. PT C/O PAIN AND SPITTING GREEN PHLEM. PT STATES HE HAS A FOLLOW-UP APPT WITH THE SURGEON IN ONE WEEK AND HAS NOT CONTACTED SURGEON FOR THIS CONCERN. PT STATES HE DOES NOT KNOW WHY HE HAS NOT CONTACTED SURGEON. History of Present Illness Date Seen by Provider: Dec 28, 2019 Time Seen by Provider: 21:45 Initial Comments 39-year-old male presents for left jaw pain. He had surgery for an open mandible fracture approximately 3 weeks ago. He states that he took the amoxicillin for approximately 4 days then discontinued it because he was feeling better. He has not followed up with Dr. Nicole reis. He has been taking ibuprofen and Tylenol for pain. Patient has a strong odor of alcohol Timing/Duration: intermittent Severity: mild Location: facial (left jaw) Prearrival Treatment: over the counter meds Associated Symptoms: denies symptoms; No fever, No malaise Allergies and Home Medications Allergies Coded Allergies: No Known Drug Allergies (Unverified , 12/08/19) Home Medications Cephalexin 500 Mg Tablet, 500 MG PO TID Prescribed by: CHUY MARTINEZ on 12/28/192205 Hydrocodone/Acetaminophen 1 Each Tablet, 1 EACH PO Q6H PRN for PAIN-BREAKTHROUGH Prescribed by: LOY QUIJANO on 12/07/19 0959 Ibuprofen 800 Mg Tablet, 800 MG PO Q8H PRN for PAIN Prescribed by: LOY QUIJANO on 01/19/19 0314 Meloxicam 15 Mg Tablet, 15 MG PO DAILY Prescribed by: SOFI BOWSER on 07/04/19 2344 Meloxicam 15 Mg Tablet, 15 MG PO DAILY Prescribed by: SOFI BOWSER on 07/20/19 0600 Tramadol HCl 50 Mg Tablet, 50 MG PO Q6H PRN for PAIN Prescribed by: CHUY MARTINEZ on 12/28/19 2208 Patient Home Medication List Home Medication List Reviewed: Yes Review of Systems Review of Systems Constitutional: no symptoms reported, see HPI; No fever, No malaise Mouth: see HPI, pain (left mandible) All Other Systems Reviewed Negative Unless Noted: Yes Past Whnyghl-Bqwnrz-Fiaxie Hx Past Med/Social Hx: Reviewed Nursing Past Med/Soc Hx Patient Social History Alcohol Use: Regular Use Number of Drinks Today: BB Alcohol Beverage of Choice: Beer, [place] Recreational Drug Use: Yes Drug of Choice: pot Smoking Status: Current Everyday Smoker Type Used: Cigarettes, Electronic/Vapor 2nd Hand Smoke Exposure: Yes Recent Foreign Travel: No Contact w/Someone Who Travel: No Recent Infectious Disease Expo: No Recent Hopitalizations: Yes (JAW SURG) Physical Abuse: No Sexual Abuse: No Mistreated: No Fear: No Immunizations Up To Date Tetanus Booster (TDap): Unknown PED Vaccines UTD: Yes Date of Influenza Vaccine: Mar 20, 2013 Past Medical History Surgeries: Yes (LEFT KNEE SURGERY X 4--ACL REPAIRS/RECONSTRUCTION) Orthopedic Respiratory: No Currently Using CPAP: No Currently Using BIPAP: No Cardiac: Yes Hypertension Neurological: No Reproductive Disorders: No Genitourinary: No Kidney Stones Gastrointestinal: No Musculoskeletal: No Arthritis Endocrine: No HEENT: No Cancer: No Psychosocial: Yes (POLYSUBSTANCE ABUSE) Integumentary: No Blood Disorders: No Family Medical History Diabetes SOCIAL HISTORY: -EXTENSIVE HISTORY OF REGULAR ALCOHOL USE/HEAVY DAILY USE -EXTENSIVE HISTORY OF DRUG ABUSE--"EVERYTHING" "YOU NAME IT" --METH, THC, OTHERS--DENIES IV USE -SMOKES 1 PPD CIGARETTES, PLUS VAPES -PT HOMELESS OF 07/2019 SURGICAL HISTORY: -LEFT KNEE SURGERY X 4--ACL REPAIRS/RECONSTRUCTION Physical Exam Vital Signs Vital Signs - First Documented 12/28/19 21:33 Temp 36.9 Pulse 97 Resp 18 B/P (MAP) 131/72 (91) O2 Delivery Room Air Height, Weight, BMI Height: 6'2.00" Weight: 250lbs. oz. 113.921922nu; 27.00 BMI Method:Stated General Appearance: WD/WN, no apparent distress Ears: bilateral ear auricle normal, bilateral ear canal normal, bilateral ear TM normal Nose: normal inspection; No discharge Mouth/Throat: normal mouth inspection, pharynx normal; No mandibular swelling, No maxillary swelling, No pharynx swelling, No tonsillar exudate, No voice changes Neck: non-tender, full range of motion, supple, normal inspection; No lymphadenopathy (R), No lymphadenopathy (L) Cardiovascular: normal peripheral pulses, regular rate, rhythm Respiratory: chest non-tender, lungs clear, normal breath sounds Gastrointestinal: normal bowel sounds, non tender, soft Neurologic/Psychiatric: no motor/sensory deficits, alert, normal mood/affect, oriented x 3 Skin: normal color, warm/dry Progress/Results/Core Measures Results/Orders My Orders Orders - CHUY MARTINEZ Rx-Tramadol Hcl (Rx-Ultram) (12/28/19 22:02) Rx-Cephalexin Capsule (Rx-Keflex Capsule (12/28/19 22:02) Vital Signs/I&O 12/28/19 21:33 Temp 36.9 Pulse 97 Resp 18 B/P (MAP) 131/72 (91) O2 Delivery Room Air Blood Pressure Mean: 91 Departure Impression Primary Impression: Fracture of left ramus of mandible Qualified Codes: S02.642D - Fracture of ramus of left mandible, subsequent encounter for fracture with routine healing Additional Impression: Dental caries Disposition: HOME, SELF-CARE Condition: Improved Departure-Patient Inst. Decision time for Depature: 22:04 Referrals: [facility] [place] Primary Care Physician LORENZO TSAI (Family) Primary Care Physician MOE PORTILLO DDS Patient Instructions: Dental Pain (DC) Add. Discharge Instructions: Take antibiotics as prescribed. Alternate between ibuprofen 600 mg and Tylenol 650 mg every 4 hours for pain. Use the tramadol for pain not controlled by ibuprofen or Tylenol. Call for a follow-up appointment with Dr. Portillo. Return to the emergency department for new, urgent health care needs. All discharge instructions reviewed with patient and/or family. Voiced understanding. Scripts Tramadol HCl (Tramadol HCl) 50 Mg Tablet 50 MG PO Q6H PRN for PAIN, #15 TAB 0 Refills Prov: CHUY MARTINEZ 12/28/19 Cephalexin (Cephalexin) 500 Mg Tablet 500 MG PO TID, #21 TAB 0 Refills Prov: CHUY MARTINEZ 12/28/19 CHUY MARTINEZ Dec 28, 2019 22:08
== END 2019-12-28 22:21 | disposition home or self-care (01) ==
LOC: EDUNIT# 21:29 → ER 21:30
DX: S02.642A Fracture of ramus of left mandible, initial encounter for closed fracture (principal); K02.9 Dental caries, unspecified; F17.290 Nicotine dependence, other tobacco product, uncomplicated; Z20.828 Contact with and (suspected) exposure to other viral communicable diseases; X58.XXXA Exposure to other specified factors, initial encounter
CPT/HCPCS: 99283

== ENCOUNTER 2020-06-05 05:17 | Emergency (ER) | payer SELFPAY ==
[~2020-06-05] VITALS: Ht 182.8 cm; Wt 90.7 kg
[~2020-06-05 05:17] MED LIST changes: +CEPH500T PO; -CIPR500T4 PO; +CIPR500T5 PO
[2020-06-05 05:35] VITALS: BP 145/100
--- NOTE | 2020-06-05 06:04 | ED Psychosocial ---
General Chief Complaint: Substance Abuse Stated Complaint: ALOCOHOLISM,BLACKING OUT Source: patient Exam Limitations: no limitations History of Present Illness Date Seen by Provider: Jun 05, 2020 Time Seen by Provider: 05:45 Initial Comments Patient presents ER by private conveyance with chief complaint that he has a longstanding history of alcoholism and wants to get off of it. He is done several stays at [facility] alcohol treatment [place]. He says he does not care for their style and would like to try something else. His primary care is Zenia Fields. He has not utilized [facility]'s outpatient practitioners for drug and alcohol use. His last drink was vodka and whiskey just prior to walking into the ER. He says he drinks about 1/5 a day on average. Last use of cocaine and methamphetamines was within the last month or 2. He smokes marijuana on a daily basis. And he smokes cigarettes. He is not having any pain nausea fever chills or shortness of air. He denies suicidal or homicidal ideation. No hallucinations. Allergies and Home Medications Allergies Coded Allergies: No Known Drug Allergies (Unverified , 12/08/19) Home Medications Cephalexin 500 Mg Tablet, 500 MG PO TID Prescribed by: CHUY MARTINEZ on 12/28/192205 Hydrocodone/Acetaminophen 1 Each Tablet, 1 EACH PO Q6H PRN for PAIN-BREAKTHROUGH Prescribed by: LOY QUIJANO on 12/07/19 0959 Ibuprofen 800 Mg Tablet, 800 MG PO Q8H PRN for PAIN Prescribed by: LOY QUIJANO on 01/19/19 0314 Meloxicam 15 Mg Tablet, 15 MG PO DAILY Prescribed by: SOFI BOWSER on 07/04/19 2344 Meloxicam 15 Mg Tablet, 15 MG PO DAILY Prescribed by: SOFI BOWSER on 07/20/19 0600 Tramadol HCl 50 Mg Tablet, 50 MG PO Q6H PRN for PAIN Prescribed by: CHUY MARTINEZ on 12/28/192207 Patient Home Medication List Home Medication List Reviewed: Yes Review of Systems Constitutional: No chills, No diaphoresis EENTM: No ear discharge, No ear pain Respiratory: No cough, No short of breath Cardiovascular: No edema, No Hx of Intervention, No palpitations Gastrointestinal: No nausea, No vomiting Past Gmupgjc-Lrhgkp-Bfytff Hx Patient Social History Alcohol Use: Regular Use Number of Drinks Today: 6 Alcohol Beverage of Choice: Whiskey, Vodka Drug of Choice: MARIJUANA Type Used: Cigarettes 2nd Hand Smoke Exposure: Yes Recent Hopitalizations: Yes (JAW SURG) Immunizations Up To Date Tetanus Booster (TDap): Unknown PED Vaccines UTD: Yes Date of Influenza Vaccine: Mar 20, 2013 Past Medical History Surgeries: Yes (LEFT KNEE SURGERY X 4--ACL REPAIRS/RECONSTRUCTION) Orthopedic Respiratory: No Currently Using CPAP: No Currently Using BIPAP: No Cardiac: Yes Hypertension Neurological: No Reproductive Disorders: No Genitourinary: No Kidney Stones Gastrointestinal: No Musculoskeletal: Yes ("CHRONIC PAIN FROM KNEE SURGERY") Arthritis Endocrine: No HEENT: No Cancer: No Psychosocial: Yes (POLYSUBSTANCE ABUSE) Integumentary: No Blood Disorders: No Family Medical History Diabetes SOCIAL HISTORY: -EXTENSIVE HISTORY OF REGULAR ALCOHOL USE/HEAVY DAILY USE -EXTENSIVE HISTORY OF DRUG ABUSE--"EVERYTHING" "YOU NAME IT" --METH, THC, OTHERS--DENIES IV USE -SMOKES 1 PPD CIGARETTES, PLUS VAPES -PT HOMELESS OF 07/2019 SURGICAL HISTORY: -LEFT KNEE SURGERY X 4--ACL REPAIRS/RECONSTRUCTION Physical Exam Capillary Refill : Height, Weight, BMI Height: 6'2.00" Weight: 250lbs. oz. 113.247799wz; 27.00 BMI Method:Stated General Appearance: WD/WN, no apparent distress HEENT: PERRL/EOMI, pharynx normal Neck: full range of motion, normal inspection Respiratory: no respiratory distress, no accessory muscle use Cardiovascular: normal peripheral pulses, regular rate, rhythm Gastrointestinal: non tender, soft Neurologic/Psychiatric: alert, normal mood/affect, oriented x 3 Appearance/Memory: appropriate appearance, appropriate insight, disheveled Skin: normal color, warm/dry Progress/Results/Core Measures Progress Progress Note : Time: 06:02 Progress Note We discussed doing outpatient therapy through [facility] and the patient thought this was a good plan. He is not having any other acute pressing emergencies so we are going to let him discharge home and give them a call this morning. Departure Impression Primary Impression: Alcohol abuse Disposition: 01 HOME, SELF-CARE Condition: Stable Departure-Patient Inst. Decision time for Depature: 06:03 Referrals: ZENIA FIELDS (PCP) Primary Care Physician [facility] (Family) Primary Care Physician Patient Instructions: ALCOHOL AND SUBSTANCE ABUSE Add. Discharge Instructions: Call [facility] at the number listed on this page and request follow-up appointment in the next couple days to set up alcohol addiction management/counseling. All discharge instructions reviewed with patient and/or family. Voiced understanding. Copy Copies To 1: ROSCOE OGLESBY TITUS J Jun 05, 2020 06:04
== END 2020-06-05 06:08 | disposition home or self-care (01) ==
LOC: EDUNIT# 05:17 → ER 05:24
DX: F10.20 Alcohol dependence, uncomplicated (principal); I10 Essential (primary) hypertension; Z77.22 Contact with and (suspected) exposure to environmental tobacco smoke (acute) (chronic); Y90.9 Presence of alcohol in blood, level not specified
CPT/HCPCS: 99283

== ENCOUNTER 2020-09-17 04:06 | Emergency (ER) | payer SELFPAY ==
[~2020-09-17] VITALS: Ht 185.4 cm; Wt 86.1 kg
[2020-09-17] MEDS ORDERED: KETOROLAC 30 MG/ML VIAL IVP ONE (04:30)
[2020-09-17 04:34] LABS: BASOPHILS # (AUTO) 0.1 10^3/uL (0.0-0.1); BASOPHILS % (AUTO) 1 % (0-10); EOSINOPHILS # (AUTO) 0.3 10^3/uL (0.0-0.3); EOSINOPHILS % (AUTO) 3 % (0-10); HEMATOCRIT 44 % (40-54); HEMOGLOBIN 14.7 g/dL (13.3-17.7); LYMPHOCYTES # (AUTO) 3.8 10^3/uL (1.0-4.0); LYMPHOCYTES % (AUTO) 42 % (12-44); MEAN CORPUSCULAR HEMOGLOBIN 31 pg (25-34); MEAN CORPUSCULAR HGB CONC 33 g/dL (32-36); MEAN CORPUSCULAR VOLUME 93 fL (80-99); MEAN PLATELET VOLUME 8.3 fL (9.0-12.2); MONOCYTES # (AUTO) 0.7 10^3/uL (0.0-1.0); MONOCYTES % (AUTO) 8 % (0-12); NEUTROPHILS # (AUTO) 4.4 10^3/uL (1.8-7.8); NEUTROPHILS % (AUTO) 47 % (42-75); PLATELET COUNT 333 10^3/uL (130-400); WHITE BLOOD COUNT 9.2 10^3/uL (4.3-11.0)
--- NOTE | 2020-09-17 04:37 | ED Lower Extremity ---
General Chief Complaint: Lower Extremity Stated Complaint: RT KNEE PAIN Nursing Triage Note: "severe right knee pain" taking gabepentin, ibuprofen 800mg 8 hrs ago. Source: patient Exam Limitations: no limitations History of Present Illness Date Seen by Provider: Sep 17, 2020 Time Seen by Provider: 04:04 Initial Comments Patient presents ER by private conveyance from home with chief complaint for the past 4 days has had some progressively worsening right knee nontraumatic pain. No recent injury to it. He does have a history of ACL surgery on his left knee contralaterally. He is also noticed some bruising and swelling over the past day. Has been using ibuprofen 800 mg last dose on 8 hours ago. He also is been using gabapentin. He sees a provider at [facility]. He has had some swelling and pain in the distal interphalangeal joint on his fifth finger of his left hand. No history of gout or other polyarthritis. His mom had lupus. He is not having any fevers chills dysuria discharge. He has had STDs in the past but has not been tested anytime recently. Allergies and Home Medications Allergies Coded Allergies: No Known Drug Allergies (Unverified , 12/08/19) Home Medications Cephalexin 500 Mg Tablet, 500 MG PO TID Prescribed by: CHUY MARTINEZ on 12/28/192205 Hydrocodone/Acetaminophen 1 Each Tablet, 1 EACH PO Q6H PRN for PAIN-BREAKTHROUGH Prescribed by: LOY QUIJANO on 12/07/19 0959 Hydrocodone/Acetaminophen 1 Each Tablet, 1 TAB PO Q6H PRN for PAIN-MODERATE (5- 7) Prescribed by: LOY QUIJANO on 09/17/20 0534 Ibuprofen 800 Mg Tablet, 800 MG PO Q8H PRN for PAIN Prescribed by: LOY QUIJANO on 01/19/19 0314 Meloxicam 15 Mg Tablet, 15 MG PO DAILY Prescribed by: SOFI BOWSER on 07/04/19 2344 Meloxicam 15 Mg Tablet, 15 MG PO DAILY Prescribed by: SOFI BOWSER on 07/20/19 0600 Naproxen 500 Mg Tablet, 500 MG PO BID Prescribed by: LOY QUIJANO on 09/17/20 0532 Tramadol HCl 50 Mg Tablet, 50 MG PO Q6H PRN for PAIN Prescribed by: CHUY MARTINEZ on 12/28/19 2207 Patient Home Medication List Home Medication List Reviewed: Yes Review of Systems Constitutional: No chills, No malaise EENTM: No hearing loss, No ear pain Respiratory: No cough, No phlegm, No short of breath Cardiovascular: No chest pain, No edema Gastrointestinal: No abdominal pain, No nausea, No vomiting Genitourinary: No discharge, No dysuria Musculoskeletal: see HPI; No back pain; joint pain Skin: No pruritus, No rash All Other Systems Reviewed Negative Unless Noted: Yes Past Aokgcww-Mdglxy-Atnjyz Hx Patient Social History Tobacco Use?: Yes Use of E-Cig and/or Vaping dev: No Substance use?: No Alcohol Use?: No Immunizations Up To Date Tetanus Booster (TDap): Unknown PED Vaccines UTD: Yes Past Medical History Surgeries: Yes (LEFT KNEE SURGERY X 4--ACL REPAIRS/RECONSTRUCTION) Orthopedic Respiratory: No Currently Using CPAP: No Currently Using BIPAP: No Cardiac: Yes Hypertension Neurological: No Reproductive Disorders: No Genitourinary: No Kidney Stones Gastrointestinal: No Musculoskeletal: Yes ("CHRONIC PAIN FROM KNEE SURGERY") Arthritis Endocrine: No HEENT: No Cancer: No Psychosocial: Yes (POLYSUBSTANCE ABUSE) Integumentary: No Blood Disorders: No Family Medical History Diabetes SOCIAL HISTORY: -EXTENSIVE HISTORY OF REGULAR ALCOHOL USE/HEAVY DAILY USE -EXTENSIVE HISTORY OF DRUG ABUSE--"EVERYTHING" "YOU NAME IT" --METH, THC, OTHERS--DENIES IV USE -SMOKES 1 PPD CIGARETTES, PLUS VAPES -PT HOMELESS OF 07/2019 SURGICAL HISTORY: -LEFT KNEE SURGERY X 4--ACL REPAIRS/RECONSTRUCTION Physical Exam Vital Signs Vital Signs - First Documented 09/17/20 04:14 Temp 36.9 Pulse 86 Resp 18 B/P (MAP) 124/87 (99) Pulse Ox 97 Capillary Refill : Less Than 3 Seconds Height, Weight, BMI Height: 6'2.00" Weight: 250lbs. oz. 113.959456cf; 25.00 BMI Method:Stated General Appearance: WD/WN, no apparent distress HEENT: PERRL/EOMI, pharynx normal Neck: full range of motion, normal inspection Cardiovascular: normal peripheral pulses, regular rate, rhythm Respiratory: no respiratory distress, no accessory muscle use Hips: bilateral hip non-tender, bilateral hip normal inspection, bilateral hip normal range of motion, bilateral hip no evidence of injury Knees: left knee non-tender, left knee normal inspection; bilateral knee normal range of motion; left knee no evidence of injury; right knee bone tenderness (Anterior medial tenderness to palpation with some mild joint effusion), right knee ecchymosis (Anterior medial 2.5 cm diameter area of the knee with nonindurated, soft ecchymoses.), right knee soft tissue tenderness, right knee swelling (Mild) Progress/Results/Core Measures Results/Orders Lab Results Laboratory Tests Test 09/17/20 04:26 09/17/20 04:32 Range/Units White Blood Count 9.2 4.3-11.0 10^3/uL Red Blood Count 4.76 4.30-5.52 10^6/uL Hemoglobin 14.7 13.3-17.7 g/dL Hematocrit 44 40-54 % Mean Corpuscular Volume 93 80-99 fL Mean Corpuscular Hemoglobin 31 25-34 pg Mean Corpuscular Hemoglobin Concent 33 32-36 g/dL Red Cell Distribution Width 12.3 10.0-14.5 % Platelet Count 333 130-400 10^3/uL Mean Platelet Volume 8.3 L 9.0-12.2 fL Immature Granulocyte % (Auto) 0 % Neutrophils (%) (Auto) 47 42-75 % Lymphocytes (%) (Auto) 42 12-44 % Monocytes (%) (Auto) 8 0-12 % Eosinophils (%) (Auto) 3 0-10 % Basophils (%) (Auto) 1 0-10 % Neutrophils # (Auto) 4.4 1.8-7.8 10^3/uL Lymphocytes # (Auto) 3.8 1.0-4.0 10^3/uL Monocytes # (Auto) 0.7 0.0-1.0 10^3/uL Eosinophils # (Auto) 0.3 0.0-0.3 10^3/uL Basophils # (Auto) 0.1 0.0-0.1 10^3/uL Immature Granulocyte # (Auto) 0.0 0.0-0.1 10^3/uL Erythrocyte Sedimentation Rate 8 0-15 MM/HR Sodium Level 142 135-145 MMOL/L Potassium Level 3.8 3.6-5.0 MMOL/L Chloride Level 107 98-107 MMOL/L Carbon Dioxide Level 20 L 21-32 MMOL/L Anion Gap 15 H 5-14 MMOL/L Blood Urea Nitrogen 10 7-18 MG/DL Creatinine 0.93 0.60-1.30 MG/DL Estimat Glomerular Filtration Rate > 60 BUN/Creatinine Ratio 11 Glucose Level 93 70-105 MG/DL Uric Acid 6.0 2.6-7.2 MG/DL Calcium Level 9.2 8.5-10.1 MG/DL Corrected Calcium 8.8 8.5-10.1 MG/DL Total Bilirubin 0.3 0.1-1.0 MG/DL Aspartate Amino Transf (AST/SGOT) 65 H 5-34 U/L Alanine Aminotransferase (ALT/SGPT) 24 0-55 U/L Alkaline Phosphatase 71 40-136 U/L C-Reactive Protein High Sensitivity 0.19 0.00-0.50 MG/DL Total Protein 7.6 6.4-8.2 GM/DL Albumin 4.5 3.2-4.5 GM/DL Urine Color YELLOW Urine Clarity CLEAR Urine pH 6.0 5-9 Urine Specific [place] 1.020 1.016-1.022 Urine Protein NEGATIVE NEGATIVE Urine Glucose (UA) NEGATIVE NEGATIVE Urine Ketones NEGATIVE NEGATIVE Urine Nitrite NEGATIVE NEGATIVE Urine Bilirubin NEGATIVE NEGATIVE Urine Urobilinogen 0.2 < = 1.0 MG/DL Urine Leukocyte Esterase NEGATIVE NEGATIVE Urine RBC (Auto) NEGATIVE NEGATIVE Urine RBC NONE /HPF Urine WBC 0-2 /HPF Urine Squamous Epithelial Cells 0-2 /HPF Urine Crystals NONE /LPF Urine Bacteria TRACE /HPF Urine Casts NONE /LPF Urine Mucus NEGATIVE /LPF Urine Culture Indicated NO Syphilis Serology Non-Reactive Non-Reactive My Orders Orders - LOY QUIJANO Ua Culture If Indicated (09/17/20 04:21) Syphilis Antibody Screen (09/17/20 04:21) Neis Osmar Dna Urine Test (09/17/20 04:21) Chlamydia Trachomatis Urine (09/17/20 04:21) Uric Acid (09/17/20 04:21) Cbc With Automated Diff (09/17/20 04:21) Comprehensive Metabolic Panel (09/17/20 04:21) Hs C Reactive Protein (09/17/20 04:21) Erythrocyte Sedimentation Rate (09/17/20 04:21) Ketorolac Injection (Toradol Injection) (09/17/20 04:30) Ed Iv/Invasive Line Start (09/17/20 04:21) Knee, Right, 3 Views (09/17/20 04:21) Rx-Hydrocodone/Apap 5-325 Mg (Rx-Vicodin (09/17/20 05:30) Ceftriaxone (Rocephin) (09/17/20 05:30) Azithromycin Tablet (Zithromax Tablet) (09/17/20 05:30) Medications Given in ED Vital Signs/I&O 09/17/20 09/17/20 04:14 05:45 Temp 36.9 Pulse 86 82 Resp 18 18 B/P (MAP) 124/87 (99) 129/85 Pulse Ox 97 99 Blood Pressure Mean: 99 Progress Progress Note #1: Time: 04:37 Progress Note Since there is multiple joints involved with the knees was bothering him again given some Toradol for his discomfort check some labs to look for inflammatory markers as well as uric acid. We will then discuss whether a joint aspiration is beneficial. Plan to check him for STDs. X-ray right knee. We did reference his file on the [place] [facility] prescription monitoring software. Progress Note #2: Time: 05:26 Progress Note Markers of inflammation are not particularly revealing of any inflammatory state. Less of his labs are unremarkable. Since we tested him for STDs even though it is less likely he has a septic joint we will go ahead and treat him with some Rocephin and azithromycin one-time dose. NSAIDs Tylenol compression ice heat and topical creams. Diagnostic Imaging Diagonstic Imaging: Xray Plain Films/CT/US/NM/MRI: knee (Right) Comments Arthritic spurring noted mild. Minimally advanced from previous x-ray on 2018. No evidence of acute fracture. [facility] [place], [place] NAME: JOSSY DE SOUZA [facility] REC#: [id number] PT STATUS: DEP ER : 1980 PHYSICIAN: LOY QUIJANO MD ADMIT DATE: 09/17/20/ER Signed Date of Exam:09/17/20 KNEE, RIGHT, 3 VIEWS INDICATION: Right knee pain AP, oblique and lateral views of the right knee are obtained with comparison made to study of 06/12/2018. There has been mild overall increase in marginal spurring throughout the knee joint. No acute fracture or malalignment is identified. There is mild knee joint effusion. IMPRESSION: Worsening mild diffuse osteoarthritis in the right knee without acute abnormality detected. Dictated by: Dictated on workstation # [id number] Dict: 09/17/2049 Trans: 09/17/20823 CV [id number] Interpreted by: LORI GAFFNEY MD Electronically signed by: LORI GAFFNEY MD 09/17/20823 Reviewed: Reviewed by Me Departure Impression Primary Impression: Effusion, right knee Additional Impression: Osteoarthritis Qualified Codes: M17.11 - Unilateral primary osteoarthritis, right knee Disposition: HOME, SELF-CARE Condition: Stable Departure-Patient Inst. Decision time for Depature: 05:29 Referrals: ZENIA BLACK (PCP) Primary Care Physician [facility] (Family) Primary Care Physician Patient Instructions: Osteoarthritis, Swollen Joints Add. Discharge Instructions: Compress the joint with an Brendan wrap or neoprene knee sleeve and keep it elevated while at rest until the swelling goes away. Topical creams such as icy hot, Biofreeze, capsaicin oil as necessary for knee pain. Tylenol 1000 mg every 8 hours necessary for pain. Naproxen 500 mg twice a day for the next 1 to 2 weeks or until the pain and swelling goes away. Follow-up with your primary care doctor in 2 to 4 weeks if the knee does not improve. For severe, unrelenting pain you may use hydrocodone 1 tablet every 6 hours as necessary. Will cause drowsiness as well as constipation. Stool softeners or MiraLAX are recommended. All discharge instructions reviewed with patient and/or family. Voiced understanding. Scripts Naproxen (Naprosyn) 500 Mg Tablet 500 MG PO BID for 14 Days, #30 TAB 0 Refills Prov: LOY QIUJANO 09/17/20 Hydrocodone/Acetaminophen (Hydrocodone-Acetamin 5-325 mg) 1 Each Tablet 1 TAB PO Q6H PRN for PAIN-MODERATE (5-7), #6 TAB 0 Refills Prov: LOY QUIJANO 09/17/20 LOY QUIJANO Sep 17, 2020 04:37
[2020-09-17 05:04] LABS: ALBUMIN 4.5 GM/DL (3.2-4.5); CHLORIDE 107 MMOL/L (98-107); POTASSIUM 3.8 MMOL/L (3.6-5.0); SODIUM 142 MMOL/L (135-145)
[2020-09-17 05:05] LABS: CALCIUM 9.2 MG/DL (8.5-10.1)
[2020-09-17 05:06] LABS: BILIRUBIN,URINE NEGATIVE (NEGATIVE); CLARITY,URINE CLEAR; COLOR,URINE YELLOW; GLUCOSE, URINE (UA) NEGATIVE (NEGATIVE); KETONES,URINE NEGATIVE (NEGATIVE); LEUKOCYTE ESTERASE ,URINE NEGATIVE (NEGATIVE); NITRITE,URINE NEGATIVE (NEGATIVE); PROTEIN,URINE NEGATIVE (NEGATIVE)
[2020-09-17 05:07] LABS: GLUCOSE 93 MG/DL (70-105); TOTAL PROTEIN 7.6 GM/DL (6.4-8.2)
[2020-09-17 05:08] LABS: CARBON DIOXIDE 20 MMOL/L (21-32)
[2020-09-17 05:09] LABS: BILIRUBIN,TOTAL 0.3 MG/DL (0.1-1.0)
[2020-09-17 05:10] LABS: ALKALINE PHOSPHATASE 71 U/L (40-136); CREATININE SERUM 0.93 MG/DL (0.60-1.30); GFR ESTIMATED > 60
[2020-09-17 05:11] LABS: BUN/CREATININE RATIO 11
[2020-09-17 05:13] LABS: ALANINE AMINOTRANSFERASE 24 U/L (0-55)
[2020-09-17 05:17] LABS: BACTERIA,URINE TRACE /HPF; SQUAMOUS EPITHELIAL CELL,UR 0-2 /HPF; WBC,URINE 0-2 /HPF
[2020-09-17 05:20] LABS: ERYTHROCYTE SEDIMENTATION RATE 8 MM/HR (0-15)
[2020-09-17] MEDS ORDERED: AZITHROMYCIN 250 MG TAB (ZITHROMAX) PO ONE (05:30)
[2020-09-17] MEDS ORDERED: cefTRIAXone 1,000 MG in WATER (STERILE) FOR INJECTION 10 ML IV ONE (05:30)
[2020-09-17] MEDS ORDERED: ACHD5005 PO (05:32)
[2020-09-17] MEDS ORDERED: NAPR-1071 PO (05:32)
[2020-09-17 05:45] VITALS: BP 129/85
--- NOTE | 2020-09-17 07:56 | Diagnostic Imaging Report ---
INDICATION: Right knee pain AP, oblique and lateral views of the right knee are obtained with comparison made to study of 06/12/2018. There has been mild overall increase in marginal spurring throughout the knee joint. No acute fracture or malalignment is identified. There is mild knee joint effusion. IMPRESSION: Worsening mild diffuse osteoarthritis in the right knee without acute abnormality detected. Dictated by: Dictated on workstation # [id number]
== END 2020-09-17 05:45 | disposition home or self-care (01) ==
LOC: EDUNIT# 04:06 → ER 04:10
DX: M25.461 Effusion, right knee (principal); M17.11 Unilateral primary osteoarthritis, right knee; I10 Essential (primary) hypertension
CPT/HCPCS: 36415; 73562; 80053; 81000; 84550; 85025; 85652; 86141; 86780; 87491; 87591

== ENCOUNTER 2020-10-02 08:56 | Emergency (ER) | payer SELFPAY ==
[~2020-10-02] VITALS: Ht 185.4 cm; Wt 85.0 kg
[2020-10-02 09:13] VITALS: BP 126/98
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
[2020-10-02] MEDS ORDERED: TETANUS,DIPTH,PERTUSS P/F (BOOSTRIX) 0.5 ML VIAL IM ONE (09:15)
== END 2020-10-02 09:13 | disposition left against medical advice (07) ==
LOC: EDUNIT# 08:56 → ER 08:59
DX: S80.811A Abrasion, right lower leg, initial encounter (principal); I10 Essential (primary) hypertension; W22.8XXA Striking against or struck by other objects, initial encounter
CPT/HCPCS: 99282

== ENCOUNTER 2020-10-06 18:48 | Emergency (ER) | payer SELFPAY ==
[~2020-10-06] VITALS: Ht 187 cm; Wt 85.0 kg
[2020-10-06] MEDS ORDERED: CEPH500T PO (19:09)
[2020-10-06] MEDS ORDERED: ACHD5005 PO (19:09)
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
[2020-10-06] MEDS ORDERED: TETANUS,DIPTH,PERTUSS P/F (BOOSTRIX) 0.5 ML VIAL IM ONE (19:15)
[2020-10-06] MEDS ORDERED: CEPHALEXIN 250 MG (KEFLEX) CAP PO SCH (19:15)
[2020-10-06] MEDS ORDERED: KETOROLAC 60 MG/2 ML VIAL IM ONE (19:15)
[2020-10-06] MEDS ORDERED: ACETAMINOPHEN 500 MG TAB (TYLENOL) PO ONE (19:15)
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
[2020-10-06 19:55] VITALS: BP 127/85
== END 2020-10-06 19:55 | disposition home or self-care (01) ==
LOC: EDUNIT# 18:48 → ER 18:51
DX: S01.112A Laceration without foreign body of left eyelid and periocular area, initial encounter (principal); S01.81XA Laceration without foreign body of other part of head, initial encounter; I10 Essential (primary) hypertension; R40.2410 Glasgow coma scale score 13-15, unspecified time; Z23 Encounter for immunization; Y04.2XXA Assault by strike against or bumped into by another person, initial encounter
CPT/HCPCS: 70450; 72125; 90715

== ENCOUNTER 2020-10-07 02:45 | Emergency (ER) | payer SELFPAY ==
[~2020-10-07] VITALS: Ht 188 cm; Wt 85.0 kg
[2020-10-07 02:47] VITALS: BP 132/87
== END 2020-10-07 02:55 | disposition left against medical advice (07) ==
LOC: EDUNIT# 02:45 → ER 02:46
DX: R51.9 Headache, unspecified (principal); Y04.0XXA Assault by unarmed brawl or fight, initial encounter
CPT/HCPCS: 99283

== ENCOUNTER 2020-10-08 08:53 | Emergency (ER) | payer SELFPAY ==
[~2020-10-08] VITALS: Ht 185.4 cm; Wt 95.0 kg
[2020-10-08 09:34] VITALS: BP 135/92
== END 2020-10-08 09:34 | disposition left against medical advice (07) ==
LOC: EDUNIT# 08:53 → ER 08:55
DX: M54.9 Dorsalgia, unspecified (principal); Y09 Assault by unspecified means
CPT/HCPCS: 99283

== ENCOUNTER 2020-10-12 07:55 | Emergency (ER) | payer SELFPAY ==
[~2020-10-12] VITALS: Ht 180 cm; Wt 88.6 kg
[2020-10-12 08:00] VITALS: BP 125/89
== END 2020-10-12 08:10 | disposition home or self-care (01) ==
LOC: EDUNIT# 07:55 → ER 07:56
DX: Z48.02 Encounter for removal of sutures (principal)

== ENCOUNTER 2020-10-14 04:41 | Emergency (ER) | payer SELFPAY ==
[~2020-10-14] VITALS: Ht 185 cm; Wt 88.6 kg
[2020-10-14 06:56] VITALS: BP 132/82
== END 2020-10-14 05:54 | disposition left against medical advice (07) ==
LOC: EDUNIT# 04:41 → ER 04:44
DX: M25.562 Pain in left knee (principal)

== ENCOUNTER 2020-12-24 22:04 | Emergency (ER) | payer SELFPAY ==
[~2020-12-24] VITALS: Ht 188 cm; Wt 108.9 kg
[2020-12-24] MEDS ORDERED: KETOROLAC 30 MG/ML VIAL IVP ONE (22:15)
--- NOTE | 2020-12-24 22:18 | ED Lower Extremity ---
General Chief Complaint: Lower Extremity Stated Complaint: R KNEE PAIN Source: patient Exam Limitations: no limitations History of Present Illness Date Seen by Provider: Dec 24, 2020 Time Seen by Provider: 22:05 Allergies and Home Medications Allergies Coded Allergies: No Known Drug Allergies (Unverified , 12/08/19) Patient Home Medication List Cephalexin (Cephalexin) 500 Mg Tablet, 500 MG PO TID Prescribed by: CHUY MARTINEZ on 12/28/192205 Cephalexin (Cephalexin) 500 Mg Tablet, 500 MG PO TID Prescribed by: TOYA EASON on 10/06/20 190 Duloxetine HCl (Cymbalta) Unknown Strength Cap, Unknown Dose PO, (Reported) Entered as Reported by: ROSE PLUNKETT on 12/08/19 1422 Hydrocodone/Acetaminophen (Hydrocodone-Acetamin 5-325 mg) 1 Each Tablet, 1 EACH PO Q6H PRN for PAIN-BREAKTHROUGH Prescribed by: LOY QUIJANO on 12/07/19 0959 Hydrocodone/Acetaminophen (Hydrocodone-Acetamin 5-325 mg) 1 Each Tablet, 1 TAB PO Q6H PRN for PAIN-MODERATE (5-7) Prescribed by: LOY QUIJANO on 09/17/20 0534 Hydrocodone/Acetaminophen (Hydrocodone-Acetamin 5-325 mg) 1 Each Tablet, 1 TAB PO Q4H PRN for PAIN-MODERATE (5-7) Prescribed by: TOYA EASON on 10/06/20 191 Ibuprofen (Ibuprofen) 800 Mg Tablet, 800 MG PO Q8H PRN for PAIN Prescribed by: LOY QUIJANO on 01/19/19 0314 Meloxicam (Mobic) 15 Mg Tablet, 15 MG PO DAILY Prescribed by: SOFI BOWSER on 07/04/19 2344 Meloxicam (Mobic) 15 Mg Tablet, 15 MG PO DAILY Prescribed by: SOFI BOWSER on 07/20/19 0600 Naproxen (Naprosyn) 500 Mg Tablet, 500 MG PO BID Prescribed by: LOY QUIJANO on 09/17/20 0532 Tramadol HCl (Tramadol HCl) 50 Mg Tablet, 50 MG PO Q6H PRN for PAIN Prescribed by: CHUY MARTINEZ on 12/28/192207 Past Gguulgf-Xobcpn-Qcmbbe Hx Immunizations Up To Date Tetanus Booster (TDap): Unknown PED Vaccines UTD: Yes Past Medical History Surgery/Hospitalization HX: x3 ACL TEARS IN R KNEE Surgeries: Yes (LEFT KNEE SURGERY X 4--ACL REPAIRS/RECONSTRUCTION) Orthopedic Respiratory: No Currently Using CPAP: No Currently Using BIPAP: No Cardiac: Yes Hypertension Neurological: No Reproductive Disorders: No Genitourinary: No Kidney Stones Gastrointestinal: No Musculoskeletal: Yes ("CHRONIC PAIN FROM KNEE SURGERY") Arthritis Endocrine: No HEENT: No Cancer: No Psychosocial: Yes (POLYSUBSTANCE ABUSE) Integumentary: No Blood Disorders: No Family Medical History Diabetes SOCIAL HISTORY: -EXTENSIVE HISTORY OF REGULAR ALCOHOL USE/HEAVY DAILY USE -EXTENSIVE HISTORY OF DRUG ABUSE--"EVERYTHING" "YOU NAME IT" --METH, THC, OTHERS--DENIES IV USE -SMOKES 1 PPD CIGARETTES, PLUS VAPES -PT HOMELESS OF 07/2019 SURGICAL HISTORY: -LEFT KNEE SURGERY X 4--ACL REPAIRS/RECONSTRUCTION Physical Exam Vital Signs Capillary Refill : Height, Weight, BMI Height: 6'2.00" Weight: 250lbs. oz. 113.776929er; 25.00 BMI Method:Stated Procedures/Interventions Suture Size: 5-0 Departure Impression Primary Impression: Sprain of knee Disposition: 01 HOME, SELF-CARE Condition: Improved Departure-Patient Inst. Decision time for Depature: 22:17 Referrals: [facility]/ (PCP) Primary Care Physician ZENIA BLACK (Family) Primary Care Physician Patient Instructions: Knee Sprain (DC) Add. Discharge Instructions: Plan: 1. Rest. Keep leg elevated above your heart as much as possible. 2. Apply ice 20 minutes at a time to affected area. 3. Use harika wrap to affected knee for the next week, this will help with pain and swelling. 4. Do not drink alcohol and take Tylenol or Ibuprofen together. 5. May take Ibuprofen as needed per package for pain. 6. Follow up with your doctor next week. 7. Return for any new, concerning, or worsening symptoms. All discharge instructions reviewed with patient and/or family. Voiced understanding. SCOTT PATTERSON SHOVEL OPERATOR Dec 24, 2020 22:17
[2020-12-24 22:32] VITALS: BP 119/80
== END 2020-12-24 22:32 | disposition home or self-care (01) ==
LOC: EDUNIT# 22:04 → ER 22:06
DX: S83.91XA Sprain of unspecified site of right knee, initial encounter (principal); I10 Essential (primary) hypertension; F17.210 Nicotine dependence, cigarettes, uncomplicated; F17.290 Nicotine dependence, other tobacco product, uncomplicated; Z59.00 Homelessness unspecified; X58.XXXA Exposure to other specified factors, initial encounter
CPT/HCPCS: 99284

== ENCOUNTER 2021-01-22 16:18 | Emergency (ER) | payer SELFPAY ==
[~2021-01-22] VITALS: Ht 185.4 cm; Wt 108.9 kg
[2021-01-22 16:21] VITALS: BP 110/80
--- NOTE | 2021-01-22 16:28 | ED Lower Extremity ---
General Chief Complaint: Lower Extremity Stated Complaint: R KNEE PAIN Source: patient Exam Limitations: no limitations History of Present Illness Date Seen by Provider: Jan 22, 2021 Time Seen by Provider: 16:25 Initial Comments Patient is a 40-year-old male presents ED with right knee pain. Knee pain over the past 4 to 5 days. Pain is worse with certain types of movements. Reports bruising to the anterior part of the knee. Has been using warm compresses, T ylenol ibuprofen without very much improvement. Reports popping sensation with the right knee giving out. Denies any redness, warmth. Denies any calf pain, fever, drug use, trauma, nausea, vomiting, diarrhea. History of previous symptoms in the past. Patient requesting IM Toradol. Allergies and Home Medications Allergies Coded Allergies: No Known Drug Allergies (Unverified , 12/08/19) Patient Home Medication List Home Medication List Reviewed: Yes Cephalexin (Cephalexin) 500 Mg Tablet, 500 MG PO TID Prescribed by: CHUY MARTINEZ on 12/28/192205 Cephalexin (Cephalexin) 500 Mg Tablet, 500 MG PO TID Prescribed by: TOYA EASON on 10/06/201908 Duloxetine HCl (Cymbalta) Unknown Strength Cap, Unknown Dose PO, (Reported) Entered as Reported by: ROSE PLUNKETT on 12/08/19 1422 Hydrocodone/Acetaminophen (Hydrocodone-Acetamin 5-325 mg) 1 Each Tablet, 1 EACH PO Q6H PRN for PAIN-BREAKTHROUGH Prescribed by: LOY QUIJANO on 12/07/19 0959 Hydrocodone/Acetaminophen (Hydrocodone-Acetamin 5-325 mg) 1 Each Tablet, 1 TAB PO Q6H PRN for PAIN-MODERATE (5-7) Prescribed by: LOY QUIJANO on 09/17/20 0534 Hydrocodone/Acetaminophen (Hydrocodone-Acetamin 5-325 mg) 1 Each Tablet, 1 TAB PO Q4H PRN for PAIN-MODERATE (5-7) Prescribed by: TOYA EASON on 10/06/20 191 Ibuprofen (Ibuprofen) 800 Mg Tablet, 800 MG PO Q8H PRN for PAIN Prescribed by: LOY QUIJANO on 01/19/19 0314 Meloxicam (Mobic) 15 Mg Tablet, 15 MG PO DAILY Prescribed by: SOFI BOWSER on 07/04/19 2344 Meloxicam (Mobic) 15 Mg Tablet, 15 MG PO DAILY Prescribed by: SOFI BOWSER on 07/20/19 0600 Meloxicam (Meloxicam) 15 Mg Tablet, 15 MG PO DAILY Prescribed by: TIFFANIE SHARIF on 01/22/21 1724 Methylprednisolone (Medrol Dose pack) 4 Mg Tab, 4 MG PO UD Prescribed by: TIFFANIE SHARIF on 01/22/21 1724 Naproxen (Naprosyn) 500 Mg Tablet, 500 MG PO BID Prescribed by: LOY QUIJANO on 09/17/20 0532 Tramadol HCl (Tramadol HCl) 50 Mg Tablet, 50 MG PO Q6H PRN for PAIN Prescribed by: CHUY MARTINEZ on 12/28/192207 Review of Systems Constitutional: see HPI EENTM: No no symptoms reported, No ear discharge Respiratory: No cough, No dyspnea on exertion Cardiovascular: No chest pain Gastrointestinal: No abdominal pain, No diarrhea, No hematemesis, No nausea, No vomiting Genitourinary: see HPI Musculoskeletal: joint pain; No joint swelling; muscle pain; No muscle stiffness, No muscle cramps Skin: No change in color, No change in hair/nails All Other Systems Reviewed Negative Unless Noted: Yes Past Dnxqiju-Koexdv-Tycrnd Hx Immunizations Up To Date Tetanus Booster (TDap): Unknown PED Vaccines UTD: Yes Past Medical History Surgery/Hospitalization HX: x3 ACL TEARS IN R KNEE Surgeries: Yes (LEFT KNEE SURGERY X 4--ACL REPAIRS/RECONSTRUCTION) Orthopedic Respiratory: No Currently Using CPAP: No Currently Using BIPAP: No Cardiac: Yes Hypertension Neurological: No Reproductive Disorders: No Genitourinary: No Kidney Stones Gastrointestinal: No Musculoskeletal: Yes ("CHRONIC PAIN FROM KNEE SURGERY") Arthritis Endocrine: No HEENT: No Cancer: No Psychosocial: Yes (POLYSUBSTANCE ABUSE) Integumentary: No Blood Disorders: No Family Medical History Diabetes SOCIAL HISTORY: -EXTENSIVE HISTORY OF REGULAR ALCOHOL USE/HEAVY DAILY USE -EXTENSIVE HISTORY OF DRUG ABUSE--"EVERYTHING" "YOU NAME IT" --METH, THC, OTHERS--DENIES IV USE -SMOKES 1 PPD CIGARETTES, PLUS VAPES -PT HOMELESS OF 07/2019 SURGICAL HISTORY: -LEFT KNEE SURGERY X 4--ACL REPAIRS/RECONSTRUCTION Physical Exam Vital Signs Vital Signs - First Documented 01/22/21 16:21 Temp 36.5 Pulse 98 Resp 18 B/P (MAP) 110/80 (90) Pulse Ox 97 O2 Delivery Room Air Capillary Refill : Height, Weight, BMI Height: 6'2.00" Weight: 250lbs. oz. 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-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5 Pulse 98 Resp 18 B/P (MAP) 110/80 (90) Pulse Ox 97 O2 Delivery Room Air Departure Communication (Admissions) X-ray was negative for fracture. Small joint effusion and comparable from previous x-ray. No erythema, warmth. Normal active range of motion. No thigh or calf tenderness. Peers to be knee sprain versus ligament or meniscus injury. Outpatient orthopedic follow-up. Will discharge with anti-inflammatories and Medrol Dosepak. No evidence suggesting septic arthritis at this time. Denies history of gout. Return precautions were discussed with patient. Impression Primary Impression: Knee pain Disposition: HOME, SELF-CARE Condition: Improved Departure-Patient Inst. Decision time for Depature: 17:22 Referrals: [facility] (PCP) Primary Care Physician ZENIA BLACK (Family) Primary Care Physician CLARISSE KEARNS MD Patient Instructions: Knee Pain (DC) Scripts Methylprednisolone (Medrol Dose pack) 4 Mg Tab 4 MG PO UD for 6 Days, #21 TAB as directed per dose pack Prov: MAGEN MOLINA 01/22/21 Meloxicam (Meloxicam) 15 Mg Tablet 15 MG PO DAILY for 15 Days, #15 TAB Prov: MAGEN MOLINA 01/22/21 MAGEN MOLINA Jan 22, 2021 16:28
[2021-01-22] MEDS ORDERED: KETOROLAC 60 MG/2 ML VIAL IM ONE (16:30)
--- NOTE | 2021-01-22 17:14 | Diagnostic Imaging Report ---
EXAMINATION: Right knee at 04:58 p.m. INDICATION: Knee pain. TECHNIQUE: Three views were obtained. FINDINGS: There is no fracture, dislocation or acute bony abnormality evident. As noted on the prior exam of 09/17/2020, there is mild narrowing of the medial compartment and the patellofemoral space. These degenerative changes have not progressed. The lateral compartment is fairly well maintained. Also as on the prior exam, there does appear to be a joint effusion present. The soft tissues are unremarkable. IMPRESSION: 1. There is no acute bony abnormality noted. 2. The degenerative changes involving the knee joint and the knee joint effusion seen previously do not appear to have progressed significantly. 3. If there is clinical concern regarding internal derangement, then MRI would be recommended for further evaluation. Dictated by: Dictated on workstation # [id number]
[2021-01-22] MEDS ORDERED: MELO15TA39 PO (17:24)
[2021-01-22] MEDS ORDERED: NF-METHYLP PO (17:24)
== END 2021-01-22 17:25 | disposition home or self-care (01) ==
LOC: EDUNIT# 16:18 → ER 16:19
DX: M25.561 Pain in right knee (principal); I10 Essential (primary) hypertension
CPT/HCPCS: 73562

== ENCOUNTER 2021-01-26 03:41 | Emergency (ER) | payer SELFPAY ==
[~2021-01-26 03:41] MED LIST changes: +MELO15TA39 PO; +NF-METHYLP PO
[2021-01-26] MEDS ORDERED: KETOROLAC 60 MG/2 ML VIAL IM ONE (03:45)
--- NOTE | 2021-01-26 03:59 | ED Lower Extremity ---
General Chief Complaint: Lower Extremity Stated Complaint: RT KNEE PAIN Source: patient Exam Limitations: no limitations History of Present Illness Date Seen by Provider: Jan 26, 2021 Time Seen by Provider: 03:40 Initial Comments Patient to the ER by EMS from home with chief complaint of pain waking him from sleep around 1130 in his right knee with swelling. He has had problems with both knees. He used to follow with Ghassan Howell, from Dr. Sosa's office and was told he was not a candidate for knee replacement until age 50. He thinks he has had Synvisc in the past and it only did moderate improvement. He had steroid shots and has been here at the ER multiple times in the past month about his knee pain. He says Toradol seems to work the best and he would like some of that. Is been using Aleve and Tylenol. He follows with Zenia Fields for primary care Allergies and Home Medications Allergies Coded Allergies: No Known Drug Allergies (Unverified , 12/08/19) Patient Home Medication List Home Medication List Reviewed: Yes Cephalexin (Cephalexin) 500 Mg Tablet, 500 MG PO TID Prescribed by: CHUY MARTINEZ on 12/28/192205 Cephalexin (Cephalexin) 500 Mg Tablet, 500 MG PO TID Prescribed by: TOYA EASON on 10/06/201908 Duloxetine HCl (Cymbalta) Unknown Strength Cap, Unknown Dose PO, (Reported) Entered as Reported by: ROSE PLUNKETT on 12/08/19 1422 Hydrocodone/Acetaminophen (Hydrocodone-Acetamin 5-325 mg) 1 Each Tablet, 1 EACH PO Q6H PRN for PAIN-BREAKTHROUGH Prescribed by: LOY QUIJANO on 12/07/19 0959 Hydrocodone/Acetaminophen (Hydrocodone-Acetamin 5-325 mg) 1 Each Tablet, 1 TAB PO Q6H PRN for PAIN-MODERATE (5-7) Prescribed by: LOY QUIJANO on 09/17/20 0534 Hydrocodone/Acetaminophen (Hydrocodone-Acetamin 5-325 mg) 1 Each Tablet, 1 TAB PO Q4H PRN for PAIN-MODERATE (5-7) Prescribed by: TOYA EASON on 10/06/20 191 Ibuprofen (Ibuprofen) 800 Mg Tablet, 800 MG PO Q8H PRN for PAIN Prescribed by: LOY QUIJANO on 01/19/19 0314 Meloxicam (Mobic) 15 Mg Tablet, 15 MG PO DAILY Prescribed by: SOFI BOWSER on 07/04/19 2344 Meloxicam (Mobic) 15 Mg Tablet, 15 MG PO DAILY Prescribed by: SOFI BOWSER on 07/20/19 0600 Meloxicam (Meloxicam) 15 Mg Tablet, 15 MG PO DAILY Prescribed by: TIFFANIE SHARIF on 01/22/21 1724 Methylprednisolone (Medrol Dose pack) 4 Mg Tab, 4 MG PO UD Prescribed by: TIFFANIE SHARIF on 01/22/21 1724 Naproxen (Naprosyn) 500 Mg Tablet, 500 MG PO BID Prescribed by: LOY QUIJANO on 09/17/20 0532 Tramadol HCl (Tramadol HCl) 50 Mg Tablet, 50 MG PO Q6H PRN for PAIN Prescribed by: CHUY MARTINEZ on 12/28/192207 Review of Systems Constitutional: No chills, No fever EENTM: No ear discharge, No ear pain Respiratory: No cough, No short of breath Cardiovascular: No edema, No palpitations Gastrointestinal: No abdominal pain, No nausea, No vomiting Genitourinary: No discharge, No dysuria Musculoskeletal: No back pain; joint pain All Other Systems Reviewed Negative Unless Noted: Yes Past Dqywekl-Xsriyf-Nsvpts Hx Patient Social History Tobacco Use?: No Use of E-Cig and/or Vaping dev: No Immunizations Up To Date Tetanus Booster (TDap): Unknown PED Vaccines UTD: Yes Past Medical History Surgery/Hospitalization HX: x3 ACL TEARS IN R KNEE Surgeries: Yes (LEFT KNEE SURGERY X 4--ACL REPAIRS/RECONSTRUCTION) Orthopedic Respiratory: No Currently Using CPAP: No Currently Using BIPAP: No Cardiac: Yes Hypertension Neurological: No Reproductive Disorders: No Genitourinary: No Kidney Stones Gastrointestinal: No Musculoskeletal: Yes ("CHRONIC PAIN FROM KNEE SURGERY") Arthritis Endocrine: No HEENT: No Cancer: No Psychosocial: Yes (POLYSUBSTANCE ABUSE) Integumentary: No Blood Disorders: No Family Medical History Diabetes SOCIAL HISTORY: -EXTENSIVE HISTORY OF REGULAR ALCOHOL USE/HEAVY DAILY USE -EXTENSIVE HISTORY OF DRUG ABUSE--"EVERYTHING" "YOU NAME IT" --METH, THC, OTHERS--DENIES IV USE -SMOKES 1 PPD CIGARETTES, PLUS VAPES -PT HOMELESS OF 07/2019 SURGICAL HISTORY: -LEFT KNEE SURGERY X 4--ACL REPAIRS/RECONSTRUCTION Physical Exam Vital Signs Capillary Refill : Height, Weight, BMI Height: 6'2.00" Weight: 250lbs. oz. 113.851183nt; 31.00 BMI Method:Stated General Appearance: WD/WN, no apparent distress HEENT: PERRL/EOMI, pharynx normal Neck: full range of motion, normal inspection Cardiovascular: normal peripheral pulses, regular rate, rhythm Respiratory: no respiratory distress, no accessory muscle use Knees: left knee non-tender, left knee normal range of motion, left knee no evidence of injury; right knee bone tenderness (Anterior tibial plateau), right knee joint effusion, right knee swelling Neurologic/Psychiatric: alert, normal mood/affect, oriented x 3 Skin: normal color, warm/dry Procedures/Interventions Suture Size: 5-0 Progress/Results/Core Measures Results/Orders My Orders Orders - LOY QUIJANO Ketorolac Injection (Toradol Injection) (01/26/21 03:45) Progress Progress Note : Time: 03:57 Progress Note Toradol shot. Encourage and follow-up with Zenia Fields. We will give him referral to Dr. Kearns to consider Synvisc or similar injection. Departure Impression Primary Impression: Right knee pain Qualified Codes: M25.561 - Pain in right knee; G89.29 - Other chronic pain Disposition: 01 HOME, SELF-CARE Condition: Stable Departure-Patient Inst. Decision time for Depature: 03:58 Referrals: [facility] [place] Primary Care Physician ZENIA FIELDS (Family) Primary Care Physician CLARISSE KEARNS MD Patient Instructions: Knee Pain (DC) Add. Discharge Instructions: Follow-up with your primary care provider or Dr. Kearns, orthopedic surgery for continued management of your chronic knee pain. Tylenol 1000 mg every 8 hours as necessary for pain. Aleve 2 tablets twice a day as necessary for knee pain. Ice as necessary for swelling. Compress your knee with an Brendan wrap. All discharge instructions reviewed with patient and/or family. Voiced unders tanding. Copy Copies To 1: CLARISSE KEARNS MD, TITUS J Jan 26, 2021 03:59
[2021-01-26 04:10] VITALS: BP 149/89
== END 2021-01-26 04:11 | disposition home or self-care (01) ==
LOC: EDUNIT# 03:41 → ER 03:43
DX: G89.29 Other chronic pain (principal); M25.561 Pain in right knee; I10 Essential (primary) hypertension
CPT/HCPCS: 99284

== ENCOUNTER 2021-06-10 04:01 | Emergency (ER) | payer SELFPAY ==
[~2021-06-10] VITALS: Ht 185 cm; Wt 86.0 kg
[2021-06-10] MEDS ORDERED: IBUP-1780 PO (04:23)
--- NOTE | 2021-06-10 04:24 | ED Lower Extremity ---
General Chief Complaint: Lower Extremity Stated Complaint: R KNEE PAIN Nursing Triage Note: Patient presented to the ER tonight with complaints of right knee pain. 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 He has not had any falls. He says is been skateboarding and riding his bike and it hurts. He took some ibuprofen, 600 mg 2 days ago and his knee still hurts. No Tylenol topical creams or wraps. No traumatic history. Known to Zenia Fields for primary care. Allergies and Home Medications Allergies Coded Allergies: No Known Drug Allergies (Unverified , 12/08/19) Patient Home Medication List Home Medication List Reviewed: Yes Cephalexin (Cephalexin) 500 Mg Tablet, 500 MG PO TID Prescribed by: CHUY MARTINEZ on 12/28/192205 Cephalexin (Cephalexin) 500 Mg Tablet, 500 MG PO TID Prescribed by: TOYA EASON on 10/06/201908 Duloxetine HCl (Cymbalta) Unknown Strength Cap, Unknown Dose PO, (Reported) Entered as Reported by: ROSE PLUNKETT on 12/08/19 1422 Hydrocodone/Acetaminophen (Hydrocodone-Acetamin 5-325 mg) 1 Each Tablet, 1 EACH PO Q6H PRN for PAIN-BREAKTHROUGH Prescribed by: LOY QUIJANO on 12/07/19 0959 Hydrocodone/Acetaminophen (Hydrocodone-Acetamin 5-325 mg) 1 Each Tablet, 1 TAB PO Q6H PRN for PAIN-MODERATE (5-7) Prescribed by: LOY QUIJANO on 09/17/20 0534 Hydrocodone/Acetaminophen (Hydrocodone-Acetamin 5-325 mg) 1 Each Tablet, 1 TAB PO Q4H PRN for PAIN-MODERATE (5-7) Prescribed by: TOYA EASON on 10/06/20 191 Ibuprofen (Ibuprofen) 800 Mg Tablet, 800 MG PO Q8H PRN for PAIN Prescribed by: LOY QUIJANO on 01/19/19 0314 Meloxicam (Mobic) 15 Mg Tablet, 15 MG PO DAILY Prescribed by: SOFI BOWSER on 07/04/19 2344 Meloxicam (Mobic) 15 Mg Tablet, 15 MG PO DAILY Prescribed by: SOFI BOWSER on 07/20/19 0600 Meloxicam (Meloxicam) 15 Mg Tablet, 15 MG PO DAILY Prescribed by: TIFFANIE SHARIF on 01/22/21 1724 Methylprednisolone (Medrol Dose pack) 4 Mg Tab, 4 MG PO UD Prescribed by: TIFFANIE SHARIF on 01/22/21 1724 Naproxen (Naprosyn) 500 Mg Tablet, 500 MG PO BID Prescribed by: LOY QUIJANO on 09/17/20 0532 Tramadol HCl (Tramadol HCl) 50 Mg Tablet, 50 MG PO Q6H PRN for PAIN Prescribed by: CHUY MARTINEZ on 12/28/192207 Review of Systems Constitutional: No chills, No diaphoresis EENTM: No ear discharge, No ear pain Respiratory: No cough, No short of breath All Other Systems Reviewed Negative Unless Noted: Yes Past Tykndlg-Cwstzz-Opkkaf Hx Patient Social History Tobacco Use?: Yes Smoking Status: Current Everyday Smoker Substance use?: Yes Substance type: Methamphetamine, Marijuana Alcohol Use?: Yes Immunizations Up To Date Tetanus Booster (TDap): Unknown PED Vaccines UTD: Yes Past Medical History Surgery/Hospitalization HX: x3 ACL TEARS IN R KNEE Surgeries: Yes (LEFT KNEE SURGERY X 4--ACL REPAIRS/RECONSTRUCTION) Orthopedic Respiratory: No Currently Using CPAP: No Currently Using BIPAP: No Cardiac: Yes Hypertension Neurological: No Reproductive Disorders: No Genitourinary: No Kidney Stones Gastrointestinal: No Musculoskeletal: Yes ("CHRONIC PAIN FROM KNEE SURGERY") Arthritis Endocrine: No HEENT: No Cancer: No Psychosocial: Yes (POLYSUBSTANCE ABUSE) Integumentary: No Blood Disorders: No Family Medical History Diabetes SOCIAL HISTORY: -EXTENSIVE HISTORY OF REGULAR ALCOHOL USE/HEAVY DAILY USE -EXTENSIVE HISTORY OF DRUG ABUSE--"EVERYTHING" "YOU NAME IT" --METH, THC, OTHERS--DENIES IV USE -SMOKES 1 PPD CIGARETTES, PLUS VAPES -PT HOMELESS OF 07/2019 SURGICAL HISTORY: -LEFT KNEE SURGERY X 4--ACL REPAIRS/RECONSTRUCTION Physical Exam Vital Signs Vital Signs - First Documented 06/10/21 04:05 Pulse 104 Resp 18 B/P (MAP) 133/77 (95) Pulse Ox 98 O2 Delivery Room Air Capillary Refill : Less Than 3 Seconds Height, Weight, BMI Height: 6'2.00" Weight: 250lbs. oz. 113.194218nc; 25.00 BMI Method:Stated General Appearance: WD/WN, no apparent distress HEENT: PERRL/EOMI, pharynx normal Neck: full range of motion, normal inspection Cardiovascular: normal peripheral pulses, regular rate, rhythm, other (Popliteal pulse 2 out of 4 bilateral symmetric, posterior tibial pulse right foot 2 out of 4.) Respiratory: no respiratory distress, no accessory muscle use Knees: left knee non-tender, left knee normal inspection; bilateral knee normal range of motion; left knee no evidence of injury; right knee joint effusion (Mild), right knee other (Medial anterior tibial plateau mildly tender to palpation without crepitus. 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 Departure Impression Primary Impression: Right knee pain Qualified Codes: M25.561 - Pain in right knee; G89.29 - Other chronic pain Additional Impression: Osteoarthritis of right knee Qualified Codes: M17.11 - Unilateral primary osteoarthritis, right knee Disposition: 01 HOME, SELF-CARE Condition: Stable Departure-Patient Inst. Decision time for Depature: 04:22 Referrals: [facility] (PCP) Primary Care Physician ZENIA FIELDS (Family) Primary Care Physician Patient Instructions: Chronic Knee Pain (DC) Add. Discharge Instructions: Ibuprofen 800 mg every 8 hours as necessary for pain. Tylenol 1000 mg every 8 hours necessary for pain. Topical creams such as icy hot or Biofreeze. Rest your knee and elevated above the level of your heart to reduce swelling and pain. Wrap your knee with elastic wrap such as Brendan wrap or a neoprene knee sleeve. Follow-up with your primary care doctor for continued knee pain. All discharge instructions reviewed with patient and/or family. Voiced understanding. Scripts Ibuprofen (Ibuprofen) 800 Mg Tablet 800 MG PO Q8H PRN for PAIN, #30 TAB 0 Refills Prov: LOY QUIJANO 06/10/21 LOY QUIJANO Jun 10, 2021 04:24
[2021-06-10] MEDS ORDERED: KETOROLAC 30 MG/ML VIAL IM ONE (04:30)
[2021-06-10 04:47] VITALS: BP 133/77
== END 2021-06-10 04:30 | disposition home or self-care (01) ==
LOC: EDUNIT# 04:01 → ER 04:02
DX: M17.11 Unilateral primary osteoarthritis, right knee (principal); F17.200 Nicotine dependence, unspecified, uncomplicated
CPT/HCPCS: 99281

== ENCOUNTER 2021-09-05 10:10 | Emergency (ER) | payer SELFPAY ==
[~2021-09-05] VITALS: Ht 185.4 cm; Wt 90.7 kg
--- NOTE | 2021-09-05 10:48 | ED Lower Extremity ---
General Chief Complaint: Lower Extremity Stated Complaint: RIGHT KNEE PAIN Nursing Triage Note: patient states he may have aggravated his right knee yesterday climbing out of a dumpster. States he has had torn ACL x3. verbalizes he took 600 mg of Ibuprofen earlier this am and pain is 9/10. Source: patient Exam Limitations: no limitations History of Present Illness Date Seen by Provider: Sep 05, 2021 Time Seen by Provider: 10:35 Initial Comments Patient is a 40-year-old male who presents to the emergency department today with a chief complaint of right knee pain and swelling. Patient states that he was loading a dumpster and planted his right foot, turned and pivoted and felt and heard a loud pop from his right knee. He had immediate onset of pain and swelling. He has been taking ibuprofen 6 to 800 mg every 6 hours since it happened. He states he has never had a known injury to the right knee before but has had previous 3 previous surgeries on his left knee. He complains of "numbness" down the leg and into his foot. No swelling down the leg. No hip pain. No low back pain. The ibuprofen is not really "touching it". He presents with a knee sleeve in place. All other review of systems reviewed and negative except as stated. Onset: yesterday Severity: severe Pain/Injury Location: right knee Method of Injury: twisted Modifying Factors: Improves With Immobilization Allergies and Home Medications Allergies Coded Allergies: No Known Drug Allergies (Unverified , 12/08/19) Patient Home Medication List Home Medication List Reviewed: Yes Cephalexin (Cephalexin) 500 Mg Tablet, 500 MG PO TID Prescribed by: CHUY MARTINEZ on 12/28/192205 Cephalexin (Cephalexin) 500 Mg Tablet, 500 MG PO TID Prescribed by: TOYA EASON on 10/06/20 190 Duloxetine HCl (Cymbalta) Unknown Strength Cap, Unknown Dose PO, (Reported) Entered as Reported by: ROSE PLUNKETT on 12/08/19 1422 Hydrocodone/Acetaminophen (Hydrocodone-Acetamin 5-325 mg) 1 Each Tablet, 1 EACH PO Q6H PRN for PAIN-BREAKTHROUGH Prescribed by: LOY QUIJANO on 12/07/19 0959 Hydrocodone/Acetaminophen (Hydrocodone-Acetamin 5-325 mg) 1 Each Tablet, 1 TAB PO Q6H PRN for PAIN-MODERATE (5-7) Prescribed by: LOY QUIJANO on 09/17/20 0534 Hydrocodone/Acetaminophen (Hydrocodone-Acetamin 5-325 mg) 1 Each Tablet, 1 TAB PO Q4H PRN for PAIN-MODERATE (5-7) Prescribed by: TOYA EASON on 10/06/20 1910 Ibuprofen (Ibuprofen) 800 Mg Tablet, 800 MG PO Q8H PRN for PAIN Prescribed by: LOY QUIJANO on 01/19/19 0314 Ibuprofen (Ibuprofen) 800 Mg Tablet, 800 MG PO Q8H PRN for PAIN Prescribed by: LOY QUIJANO on 06/10/21 0423 Meloxicam (Mobic) 15 Mg Tablet, 15 MG PO DAILY Prescribed by: SOFI BOWSER on 07/04/19 2344 Meloxicam (Mobic) 15 Mg Tablet, 15 MG PO DAILY Prescribed by: SOFI BOWSER on 07/20/19 0600 Meloxicam (Meloxicam) 15 Mg Tablet, 15 MG PO DAILY Prescribed by: TIFFANIE SHARIF on 01/22/21 1724 Methylprednisolone (Medrol Dose pack) 4 Mg Tab, 4 MG PO UD Prescribed by: TIFFANIE SHARIF on 01/22/21 1724 Naproxen (Naprosyn) 500 Mg Tablet, 500 MG PO BID Prescribed by: LOY QUIJANO on 09/17/20 0532 Tramadol HCl (Tramadol HCl) 50 Mg Tablet, 50 MG PO Q6H PRN for PAIN Prescribed by: CHUY MARTINEZ on 12/28/19 2208 Review of Systems Constitutional: see HPI Respiratory: no symptoms reported Cardiovascular: no symptoms reported Gastrointestinal: no symptoms reported Musculoskeletal: joint pain (right knee) All Other Systems Reviewed Negative Unless Noted: Yes Past Bwhttbd-Idgwaj-Yaoaec Hx Patient Social History Tobacco Use?: Yes Tobacco type used: Cigarettes Smoking Status: Current Everyday Smoker Use of E-Cig and/or Vaping dev: No Substance use?: No Alcohol Use?: Yes Alcohol type: Beer, Hard Liquor Alcohol Frequency: Daily Pt feels they are or have been: No Immunizations Up To Date Tetanus Booster (TDap): Unknown PED Vaccines UTD: Yes First/Initial COVID19 Vaccinat: 2020 Second COVID19 Vaccination Luis E: 2020 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: [employer] Past Medical History Surgery/Hospitalization HX: x3 ACL TEARS IN R KNEE Surgeries: Yes (LEFT KNEE SURGERY X 4--ACL REPAIRS/RECONSTRUCTION) Orthopedic Respiratory: No Currently Using CPAP: No Currently Using BIPAP: No Cardiac: Yes Hypertension Neurological: No Reproductive Disorders: No Genitourinary: No Kidney Stones Gastrointestinal: No Musculoskeletal: Yes ("CHRONIC PAIN FROM KNEE SURGERY") Arthritis Endocrine: No HEENT: No Cancer: No Psychosocial: Yes (POLYSUBSTANCE ABUSE) Integumentary: No Blood Disorders: No Family Medical History Diabetes SOCIAL HISTORY: -EXTENSIVE HISTORY OF REGULAR ALCOHOL USE/HEAVY DAILY USE -EXTENSIVE HISTORY OF DRUG ABUSE--"EVERYTHING" "YOU NAME IT" --METH, THC, OTHERS--DENIES IV USE -SMOKES 1 PPD CIGARETTES, PLUS VAPES -PT HOMELESS OF 07/2019 SURGICAL HISTORY: -LEFT KNEE SURGERY X 4--ACL REPAIRS/RECONSTRUCTION Physical Exam Vital Signs Vital Signs - First Documented 09/05/21 10:10 Temp 36.0 Pulse 96 Resp 18 B/P (MAP) 150/98 (115) Pulse Ox 99 O2 Delivery Room Air Capillary Refill : Less Than 3 Seconds Height, Weight, BMI Height: 6'2.00" Weight: 250lbs. oz. 113.234686mg; 26.00 BMI Method:Stated General Appearance: WD/WN, no apparent distress Cardiovascular: regular rate, rhythm Respiratory: no respiratory distress, no accessory muscle use Hips: bilateral hip normal inspection, bilateral hip normal range of motion, bilateral hip no evidence of injury Legs: bilateral leg non-tender, bilateral leg normal inspection, bilateral leg normal range of motion, bilateral leg no evidence of injury Knees: left knee non-tender, left knee normal inspection, left knee normal range of motion, left knee no evidence of injury; right knee joint effusion, right knee soft tissue tenderness, right knee swelling, right knee other (negatvie AP drawer amd lissy. + [facility] - palpable and audible "click") Ankles: bilateral ankle non-tender, bilateral ankle normal inspection, bilateral ankle normal range of motion, bilateral ankle no evidence of injury Feet: bilateral foot non-tender, bilateral foot normal inspection, bilateral foot normal range of motion, bilateral foot no evidence of injury Neurologic/Psychiatric: no motor/sensory deficits, alert, normal mood/affect, oriented x 3 Skin: normal color, warm/dry, other (patient has maculopapular rash over right knee - appears to be contact in origin - as it follows the pattern of the knee sleeve) Procedures/Interventions Suture Size: 5-0 Progress/Results/Core Measures Results/Orders My Orders Orders - MARY SMALL MD Knee, Right, 3 Views (09/05/21 10:42) Vital Signs/I&O 09/05/21 10:10 Temp 36.0 Pulse 96 Resp 18 B/P (MAP) 150/98 (115) Pulse Ox 99 O2 Delivery Room Air Blood Pressure Mean: 115 Departure Impression Primary Impression: Internal derangement of right knee Disposition: HOME, SELF-CARE Condition: Stable Departure-Patient Inst. Decision time for Depature: 10:52 Referrals: [facility] [place] Primary Care Physician ZENIA BLACK (Family) Primary Care Physician HILARY SOSA MD Patient Instructions: Internal Derangement of the Knee (DC) Add. Discharge Instructions: Continue the ice to the right knee 20 minutes at a time 4-6 times daily. Try and keep the knee elevated to reduce swelling. [id number] ibuprofen 6 to 800 mg every 8 hours with food as needed for pain. Hydrocodone every 6 hours as needed for more severe pain. Please follow-up with Dr. Sosa's office today to schedule an appointment. Wear your knee brace daily and you can use the crutches to help relieve some of the pressure. You can toe-touch weight-bear as tolerated. Return to the emergency room for any worsening swelling especially with redness fever or any other emergent concerning symptoms. Scripts Hydrocodone/Acetaminophen (Hydrocodone-Acetamin 5-325 mg) 5 Mg-325 Mg Tablet 1 TAB PO Q6H PRN for PAIN-MODERATE (5-7), #12 TAB Prov: MARY SMALL MD 09/05/21 Copy Copies To 1: HILARY SOSA MD, KATHRYN M MD Sep 05, 2021 10:48
[2021-09-05] MEDS ORDERED: ACHD5005 PO ×2 (10:52→11:10)
[2021-09-05] MEDS ORDERED: HYDROcodone/APAP 5 MG/325 MG (LORTAB) TAB PO ONE (11:30)
--- NOTE | 2021-09-05 11:32 | Diagnostic Imaging Report ---
CLINICAL INDICATION: Patient states he may have aggravated his right knee yesterday coming out of dumpster. Patient has torn ACL x3. EXAM: X-ray of the right knee, 3 views. COMPARISON: X-ray of the right knee dated 01/22/2021. FINDINGS: There is no acute fracture or dislocation. There is moderate to severe medial compartment narrowing which has progressed in interim. There are moderately hypertrophic spurs involving the medial and lateral compartment and spurs involving the patellofemoral compartment. There is swelling involving the knee which has progressed and concern for knee effusion. IMPRESSION: 1: There is no acute fracture or dislocation. 2: There is moderate to severe medial joint space narrowing which has progressed. 3: There is swelling about the right knee which has developed in interim. Dictated by: Dictated on workstation # [id number]
[2021-09-05 11:54] VITALS: BP 144/86
== END 2021-09-05 11:54 | disposition home or self-care (01) ==
LOC: EDUNIT# 10:10 → ER 10:11
DX: M23.91 Unspecified internal derangement of right knee (principal); F17.210 Nicotine dependence, cigarettes, uncomplicated; X50.1XXA Overexertion from prolonged static or awkward postures, initial encounter
CPT/HCPCS: 73562

== ENCOUNTER 2021-10-21 09:44 | Emergency (ER) | payer SELFPAY ==
[2021-10-21] MEDS ORDERED: KETOROLAC 30 MG/ML VIAL ONE (10:01)
--- NOTE | 2021-10-21 10:12 | ED Lower Extremity ---
General Chief Complaint: Lower Extremity Stated Complaint: BREAK THROUGH PAIN Nursing Triage Note: PT AMB TO RM 8 WITH EMOTIONAL SUPPORT DOG WITH C/O BILAT KNEE PAIN AND BACK PAIN SINCE 0300 THIS MORNING Source: patient Exam Limitations: no limitations History of Present Illness Date Seen by Provider: Oct 21, 2021 Time Seen by Provider: 09:50 Initial Comments 40-year-old male with no pertinent past medical history coming in due to bilate ral knee pain that started around 3 AM this morning. Its moderate, throbbing, worse with walking, better with rest. Denies any swelling or fever with it. He says this is happened before and he typically gets a shot of Toradol and the pain goes away. He is otherwise denying any other acute complaints Allergies and Home Medications Allergies Coded Allergies: No Known Drug Allergies (Unverified , 12/08/19) Patient Home Medication List Home Medication List Reviewed: Yes Cephalexin (Cephalexin) 500 Mg Tablet, 500 MG PO TID Prescribed by: CHUY MARTINEZ on 12/28/192205 Cephalexin (Cephalexin) 500 Mg Tablet, 500 MG PO TID Prescribed by: TOYA EASON on 10/06/201908 Duloxetine HCl (Cymbalta) Unknown Strength Cap, Unknown Dose PO, (Reported) Entered as Reported by: ROSE PLUNKETT on 12/08/19 1422 Hydrocodone/Acetaminophen (Hydrocodone-Acetamin 5-325 mg) 1 Each Tablet, 1 EACH PO Q6H PRN for PAIN-BREAKTHROUGH Prescribed by: LOY QUIJANO on 12/07/19 0959 Hydrocodone/Acetaminophen (Hydrocodone-Acetamin 5-325 mg) 1 Each Tablet, 1 TAB PO Q6H PRN for PAIN-MODERATE (5-7) Prescribed by: LOY QUIJANO on 09/17/20 0534 Hydrocodone/Acetaminophen (Hydrocodone-Acetamin 5-325 mg) 1 Each Tablet, 1 TAB PO Q4H PRN for PAIN-MODERATE (5-7) Prescribed by: TOYA EASON on 10/06/20 191 Hydrocodone/Acetaminophen (Hydrocodone-Acetamin 5-325 mg) 5 Mg-325 Mg Tablet, 1 TAB PO Q6H PRN for PAIN-MODERATE (5-7) Prescribed by: MARY SMALL on 09/05/21 1112 Ibuprofen (Ibuprofen) 800 Mg Tablet, 800 MG PO Q8H PRN for PAIN Prescribed by: LOY QUIJANO on 01/19/19 0314 Ibuprofen (Ibuprofen) 800 Mg Tablet, 800 MG PO Q8H PRN for PAIN Prescribed by: LOY QUIJANO on 06/10/21 0423 Meloxicam (Mobic) 15 Mg Tablet, 15 MG PO DAILY Prescribed by: SOFI BOWSER on 07/04/19 2344 Meloxicam (Mobic) 15 Mg Tablet, 15 MG PO DAILY Prescribed by: SOFI BOWSER on 07/20/19 0600 Meloxicam (Meloxicam) 15 Mg Tablet, 15 MG PO DAILY Prescribed by: TIFFANIE SHARIF on 01/22/21 1724 Methylprednisolone (Medrol Dose pack) 4 Mg Tab, 4 MG PO UD Prescribed by: TIFFANIE SHARIF on 01/22/21 172 Naproxen (Naprosyn) 500 Mg Tablet, 500 MG PO BID Prescribed by: LOY QUIJANO on 09/17/20 0532 Tramadol HCl (Tramadol HCl) 50 Mg Tablet, 50 MG PO Q6H PRN for PAIN Prescribed by: CHUY MARTINEZ on 12/28/192207 Review of Systems Constitutional: No fever EENTM: No blurred vision Respiratory: no symptoms reported Cardiovascular: no symptoms reported Gastrointestinal: no symptoms reported Genitourinary: no symptoms reported Musculoskeletal: see HPI Skin: no symptoms reported Psychiatric/Neurological: No Symptoms Reported All Other Systems Reviewed Negative Unless Noted: Yes Past Kigqsyv-Xfvwwf-Ndlcdp Hx Patient Social History Tobacco Use?: Yes Tobacco type used: Cigarettes Smoking Status: Current Everyday Smoker Use of E-Cig and/or Vaping dev: No Substance use?: Yes Substance type: Marijuana Substance frequency: Daily Alcohol Use?: Yes Alcohol Frequency: Daily Immunizations Up To Date Tetanus Booster (TDap): Unknown PED Vaccines UTD: Yes Influenza Vaccine Up-to-Date: No; Not Current First/Initial COVID19 Vaccinat: 2020 Second COVID19 Vaccination Luis E: 2020 Third COVID19 Vaccination Date: 2021 Past Medical History Surgery/Hospitalization HX: x3 ACL TEARS IN R KNEE Surgeries: Yes (LEFT KNEE SURGERY X 4--ACL REPAIRS/RECONSTRUCTION) Orthopedic Respiratory: No Currently Using CPAP: No Currently Using BIPAP: No Cardiac: Yes Hypertension Neurological: No Reproductive Disorders: No Genitourinary: No Kidney Stones Gastrointestinal: No Musculoskeletal: Yes ("CHRONIC PAIN FROM KNEE SURGERY") Arthritis Endocrine: No HEENT: No Cancer: No Psychosocial: Yes (POLYSUBSTANCE ABUSE) Integumentary: No Blood Disorders: No Family Medical History Diabetes SOCIAL HISTORY: -EXTENSIVE HISTORY OF REGULAR ALCOHOL USE/HEAVY DAILY USE -EXTENSIVE HISTORY OF DRUG ABUSE--"EVERYTHING" "YOU NAME IT" --METH, THC, OTHERS--DENIES IV USE -SMOKES 1 PPD CIGARETTES, PLUS VAPES -PT HOMELESS OF 07/2019 SURGICAL HISTORY: -LEFT KNEE SURGERY X 4--ACL REPAIRS/RECONSTRUCTION Physical Exam Vital Signs Vital Signs - First Documented 10/21/21 09:53 Temp 35.6 Pulse 99 Resp 20 B/P (MAP) 136/94 (108) Capillary Refill : Height, Weight, BMI Height: 6'2.00" Weight: 250lbs. oz. 113.046551wl; 26.00 BMI Method:Stated General Appearance: WD/WN, no apparent distress HEENT: PERRL/EOMI, normal ENT inspection, pharynx normal Neck: non-tender, full range of motion, supple, normal inspection Cardiovascular: regular rate, rhythm, no edema, no murmur Respiratory: chest non-tender, lungs clear, normal breath sounds, no respiratory distress, no accessory muscle use Gastrointestinal: normal bowel sounds, non tender, soft; No distended, No guarding, No rebound Knees: bilateral knee non-tender, bilateral knee normal inspection, bilateral knee normal range of motion, bilateral knee no evidence of injury Neurologic/Tendon: normal sensation, normal motor functions, normal tendon functions Neurologic/Psychiatric: no motor/sensory deficits, alert, normal mood/affect Skin: normal color, warm/dry Lymphatic: no adenopathy Procedures/Interventions Suture Size: 5-0 Progress/Results/Core Measures Results/Orders My Orders Orders - MAGEN CH MD Ketorolac Injection (Toradol Injection) (10/21/21 10:01) Medications Given in ED Current Medications Medications Dose Ordered Sig/Jhonatan Route Start Time Stop Time Status Last Admin Dose Admin Ketorolac Tromethamine 30 mg STK-MED ONCE .ROUTE 10/21/21 10:01 10/21/21 10:03 DC 10/21/21 10:05 30 MG Vital Signs/I&O 10/21/21 09:53 Temp 35.6 Pulse 99 Resp 20 B/P (MAP) 136/94 (108) Blood Pressure Mean: 108 Progress Progress Note : Progress Note 40-year-old male coming in for knee pain. ABCs were intact and vitals were stable on presentation. Physical exam reassuring including no focal abnormalities. No signs of trauma or infection. Given a shot of Toradol with complete resolution of symptoms almost instantaneously which is unusual. At that point he was wanting to be discharged. Departure Impression Primary Impression: Knee pain Qualified Codes: M25.561 - Pain in right knee; M25.562 - Pain in left knee Disposition: HOME, SELF-CARE Condition: Improved Departure-Patient Inst. Decision time for Depature: 10:11 Referrals: [facility] ([facility]P) Primary Care Physician ZENIA BLACK (Family) Primary Care Physician Patient Instructions: Knee Pain ED Add. Discharge Instructions: Please follow-up with your regular doctor or community health if you do not have 1. Take ibuprofen or Tylenol as needed for pain. Work/School Note: Work Release Form Date Seen in the Emergency Department: Oct 21, 2021 Return to Work: Oct 22, 2021 Restrictions: No Restrictions MAGEN CH MD Oct 21, 2021 10:12
[2021-10-21 10:14] VITALS: BP 136/94
== END 2021-10-21 10:14 | disposition home or self-care (01) ==
LOC: EDUNIT# 09:44 → ER 09:46
DX: M25.562 Pain in left knee (principal); M25.561 Pain in right knee; F17.210 Nicotine dependence, cigarettes, uncomplicated; Z98.890 Other specified postprocedural states
CPT/HCPCS: 99284

== ENCOUNTER 2021-11-01 21:17 | Emergency (ER) | payer SELFPAY ==
[~2021-11-01] VITALS: Ht 185.5 cm; Wt 86.2 kg
[2021-11-01 21:33] VITALS: BP 124/75
[2021-11-01] MEDS ORDERED: GABA300C PO (22:10)
--- NOTE | 2021-11-01 22:11 | ED Lower Extremity ---
General Chief Complaint: Lower Extremity Stated Complaint: R KNEE PAIN Nursing Triage Note: C/O CHRONIC RIGHT KNEE PAIN X3 WEEKS. DENIES RECENT INJURY. REPORTS OUT OF PAIN MEDICATIONS. Source: patient Exam Limitations: no limitations History of Present Illness Date Seen by Provider: Nov 01, 2021 Time Seen by Provider: 22:08 Initial Comments Patient is a 40-year-old male who presents ED with right knee pain. Reports pain over the past 3 weeks. Noted some swelling of the right knee. History of pain in the right knee for the past few years. Denies of any specific injury that he can recall. Denies any redness or warmth or history of gout. Denies fever, chills, nausea vomit, diarrhea. Patient is requesting refill of his Neurontin and a dose of Toradol. Pain is described as throbbing located to the anterior part knee worse with any movement. Allergies and Home Medications Allergies Coded Allergies: No Known Drug Allergies (Unverified , 12/08/19) Patient Home Medication List Home Medication List Reviewed: Yes Gabapentin (Neurontin) 300 Mg Capsule, 300 MG PO BID Prescribed by: TIFFANIE SHARIF on 11/01/21 2210 Discontinued Medications Cephalexin (Cephalexin) 500 Mg Tablet, 500 MG PO TID Discontinued Reason: No Longer Taking Prescribed by: CHUY MARTINEZ on 12/28/19 2206 Last Action: Discontinued Cephalexin (Cephalexin) 500 Mg Tablet, 500 MG PO TID Discontinued Reason: No Longer Taking Prescribed by: TOYA EASON on 10/06/20 1909 Last Action: Discontinued Duloxetine HCl (Cymbalta) Unknown Strength Cap, Unknown Dose PO, (Reported) Discontinued Reason: No Longer Taking Entered as Reported by: ROSE PLUNKETT on 12/08/19 1422 Last Action: Discontinued Hydrocodone/Acetaminophen (Hydrocodone-Acetamin 5-325 mg) 1 Each Tablet, 1 EACH PO Q6H PRN for PAIN-BREAKTHROUGH Discontinued Reason: No Longer Taking Prescribed by: LOY QUIJANO on 12/07/19 0959 Last Action: Discontinued Hydrocodone/Acetaminophen (Hydrocodone-Acetamin 5-325 mg) 1 Each Tablet, 1 TAB PO Q6H PRN for PAIN-MODERATE (5-7) Discontinued Reason: No Longer Taking Prescribed by: LOY QUIJANO on 09/17/20 0534 Last Action: Discontinued Hydrocodone/Acetaminophen (Hydrocodone-Acetamin 5-325 mg) 1 Each Tablet, 1 TAB PO Q4H PRN for PAIN-MODERATE (5-7) Discontinued Reason: No Longer Taking Prescribed by: TOYA EASON on 10/06/20 1910 Last Action: Discontinued Hydrocodone/Acetaminophen (Hydrocodone-Acetamin 5-325 mg) 5 Mg-325 Mg Tablet, 1 TAB PO Q6H PRN for PAIN-MODERATE (5-7) Discontinued Reason: No Longer Taking Prescribed by: MARY SMALL on 09/05/21 1112 Last Action: Discontinued Ibuprofen (Ibuprofen) 800 Mg Tablet, 800 MG PO Q8H PRN for PAIN Discontinued Reason: No Longer Taking Prescribed by: LOY QUIJANO on 01/19/19 0314 Last Action: Discontinued Ibuprofen (Ibuprofen) 800 Mg Tablet, 800 MG PO Q8H PRN for PAIN Discontinued Reason: No Longer Taking Prescribed by: LOY QUIJANO on 06/10/21 0423 Last Action: Discontinued Meloxicam (Mobic) 15 Mg Tablet, 15 MG PO DAILY Discontinued Reason: No Longer Taking Prescribed by: SOFI BOWSER on 07/04/19 2344 Last Action: Discontinued Meloxicam (Mobic) 15 Mg Tablet, 15 MG PO DAILY Discontinued Reason: No Longer Taking Prescribed by: SOFI BOWSER on 07/20/19 0600 Last Action: Discontinued Meloxicam (Meloxicam) 15 Mg Tablet, 15 MG PO DAILY Discontinued Reason: No Longer Taking Prescribed by: TIFFANIE SHARIF on 01/22/21 1724 Last Action: Discontinued Methylprednisolone (Medrol Dose pack) 4 Mg Tab, 4 MG PO UD Discontinued Reason: No Longer Taking Prescribed by: TIFFANIE SHARIF on 01/22/21 172 Last Action: Discontinued Naproxen (Naprosyn) 500 Mg Tablet, 500 MG PO BID Discontinued Reason: No Longer Taking Prescribed by: LOY QUIJANO on 09/17/20 0532 Last Action: Discontinued Tramadol HCl (Tramadol HCl) 50 Mg Tablet, 50 MG PO Q6H PRN for PAIN Discontinued Reason: No Longer Taking Prescribed by: CHUY MARTINEZ on 12/28/19 2208 Last Action: Discontinued Review of Systems Constitutional: No chills, No diaphoresis, No malaise, No weakness EENTM: No hearing loss, No ear pain, No blurred vision Respiratory: No cough, No dyspnea on exertion, No orthopnea, No short of breath Cardiovascular: No chest pain Gastrointestinal: No abdominal pain, No diarrhea, No nausea, No vomiting Genitourinary: No decreased output, No discharge Musculoskeletal: No back pain; joint pain, joint swelling Skin: No change in color All Other Systems Reviewed Negative Unless Noted: Yes Past Nypeixg-Eikxfe-Cochlj Hx Patient Social History Tobacco Use?: Yes Substance use?: Yes Substance type: Marijuana Alcohol Use?: Yes Alcohol Frequency: Once in a while Pt feels they are or have been: No Immunizations Up To Date Tetanus Booster (TDap): Unknown PED Vaccines UTD: Yes First/Initial COVID19 Vaccinat: 2020 Second COVID19 Vaccination Luis E: 2020 Third COVID19 Vaccination Date: 2021 Past Medical History Surgery/Hospitalization HX: x3 ACL TEARS IN R KNEE Surgeries: Yes (LEFT KNEE SURGERY X 4--ACL REPAIRS/RECONSTRUCTION) Orthopedic Respiratory: No Currently Using CPAP: No Currently Using BIPAP: No Cardiac: Yes Hypertension Neurological: No Reproductive Disorders: No Genitourinary: No Kidney Stones Gastrointestinal: No Musculoskeletal: Yes ("CHRONIC PAIN FROM KNEE SURGERY") Arthritis Endocrine: No HEENT: No Cancer: No Psychosocial: Yes (POLYSUBSTANCE ABUSE) Integumentary: No Blood Disorders: No Family Medical History Diabetes SOCIAL HISTORY: -EXTENSIVE HISTORY OF REGULAR ALCOHOL USE/HEAVY DAILY USE -EXTENSIVE HISTORY OF DRUG ABUSE--"EVERYTHING" "YOU NAME IT" --METH, THC, OTHERS--DENIES IV USE -SMOKES 1 PPD CIGARETTES, PLUS VAPES -PT HOMELESS OF 07/2019 SURGICAL HISTORY: -LEFT KNEE SURGERY X 4--ACL REPAIRS/RECONSTRUCTION Physical Exam Vital Signs Vital Signs - First Documented 11/01/21 21:33 Temp 37.1 Pulse 95 Resp 16 B/P (MAP) 124/75 (91) Pulse Ox 97 O2 Delivery Room Air Capillary Refill : Less Than 3 Seconds Height, Weight, BMI Height: 6'2.00" Weight: 250lbs. oz. 113.168773nb; 25.00 BMI Method:Stated General Appearance: WD/WN, no apparent distress HEENT: PERRL/EOMI, normal ENT inspection, TMs normal Neck: non-tender, full range of motion, supple Cardiovascular: regular rate, rhythm, no edema, no gallop, no JVD Respiratory: chest non-tender, lungs clear, normal breath sounds, no respirato ry distress Gastrointestinal: normal bowel sounds, non tender, soft, no organomegaly Back: no CVA tenderness, no vertebral tenderness Knees: right knee pain, right knee soft tissue tenderness, right knee swelling Ankles: bilateral ankle non-tender, bilateral ankle normal inspection, bilateral ankle normal range of motion Feet: bilateral foot non-tender, bilateral foot normal inspection Neurologic/Psychiatric: acct exec II-XII nml as tested, no motor/sensory deficits, alert, normal mood/affect, oriented x 3 Skin: normal color, warm/dry Procedures/Interventions Suture Size: 5-0 Progress/Results/Core Measures Results/Orders My Orders Orders - MAGEN MOLINA Ketorolac Injection (Toradol Injection) (11/01/21 22:15) Medications Given in ED Current Medications Medications Dose Ordered Sig/Jhonatan Route Start Time Stop Time Status Last Admin Dose Admin Ketorolac Tromethamine 30 mg ONCE ONCE IM 11/01/21 22:15 11/01/21 22:16 DC 11/01/21 22:15 30 MG Vital Signs/I&O 11/01/21 21:33 Temp 37.1 Pulse 95 Resp 16 B/P (MAP) 124/75 (91) Pulse Ox 97 O2 Delivery Room Air Blood Pressure Mean: 91 Departure Communication (PCP) Patient with a history of chronic knee pain. No erythema or warmth. Normal active range of motion. Patient was requesting Toradol shot which was provided here. No laxity with valgus or varus stress. Negative anterior posterior drawer test. Patient was requesting a few days worth of his Neurontin as he is making a transition to a different provider. Return precaution were discussed with patient. Impression Primary Impression: Knee pain Disposition: 01 HOME, SELF-CARE Condition: Stable Departure-Patient Inst. Decision time for Depature: 22:09 [facility] Primary Care Physician Patient Instructions: Knee Pain Scripts Gabapentin (Neurontin) 300 Mg Capsule 300 MG PO BID, #4 CAP Prov: MAGEN MOLINA 11/01/21 MAGEN MOLINA Nov 01, 2021 22:11
[2021-11-01] MEDS ORDERED: KETOROLAC 30 MG/ML VIAL IM ONE (22:15)
== END 2021-11-01 22:17 | disposition home or self-care (01) ==
LOC: EDUNIT# 21:17 → ER 21:19
DX: M25.561 Pain in right knee (principal); F17.210 Nicotine dependence, cigarettes, uncomplicated
CPT/HCPCS: 99284